=== PATIENT | female | born 1940 | race Caucasian/White ===

== ENCOUNTER 2021-09-29 10:08 | Outpatient (RCR) | payer MEDICARE, BC, SELFPAY | END 2021-09-30 23:59 | disposition home or self-care (01) | LOC: CCIC 10:08 | PROVIDERS: PCP Family Medicine; Visit Provider Internal Medicine Hematology & Oncology | DX: C50.912 Malignant neoplasm of unspecified site of left female breast (principal); Z17.0 Estrogen receptor positive status [ER+]; Z79.811 Long term (current) use of aromatase inhibitors; R23.2 Flushing; N95.2 Postmenopausal atrophic vaginitis; Z78.0 Asymptomatic menopausal state | CPT/HCPCS: 99204; 99212; 99214 ==

== ENCOUNTER 2021-10-14 13:46 | Outpatient (CLI) | payer MEDICARE, BC, SELFPAY ==
--- NOTE | 2021-10-14 14:00 | CRLHL7_ITS ---
For Patients: As a result of the Century Cures Act, medical imaging exams and procedure reports are released immediately into your electronic medical record. You may view this report before your referring provider. If you have questions, please contact your health care provider. DXA BONE MINERAL DENSITY STUDY Current height (in): 64. Weight (lb): 147. Menopause age: 55. Ethnicity: White. 1. Have you had a previous hip or vertebral fracture? No. 2. Have you had any fractures during your adult life which did not result from significant trauma (e.g., auto accident)? No. 3. Did either of your parents have a hip fracture? No. 4. Do you smoke? No. 5. Have you ever taken Glucocorticoids? No. 6. Do you have rheumatoid arthritis? No. 7. Do you have secondary osteoporosis? No. 8. Do you drink 3 or more alcoholic drinks per day? No. 9. Are you being treated for osteoporosis? No. 10. Have you ever taken any of the following medications: Actonel, Evista, Fosamax, Miacalcin, Reclast, Boniva, Forteo, HRT (i.e. estrogen/hormone therapy), Protelos, Prolia, Vitamin D, Calcium, other ??? please specify. ANSWER: Yes, vitamin D, calcium. 11. Do you have any of the following medical conditions: Anorexia or bulimia, asthma or emphysema, end stage renal disease, hyperparathyroidism, any seizure disorders, cancer, inflammatory bowel diseases, hysterectomy, other ??? please specify. ANSWER: Yes, Cancer. 12. What was your maximum height (inches)? 65.5. 13. Do you perform weight bearing exercise regularly? Yes. 14. Do you regularly consume dairy products? Yes. 15. Do you drink caffeinated beverages? Yes. 16. At what age did your period start? 12. 17. Are you premenopausal? No. 18. How many full term pregnancies have you had? 2. 19. Have you ever missed your period for more than 6 months in a row (not including or menopause)? No. TECHNIQUE: Bone mineral density study was performed using the [employer]. FINDINGS: The results of the study expressed as bone mineral density (BMD) are as follows: Lumbar spine L1 to L3: BMD: 1.007 g/cm2. T-score: -0.1. Z-score: 2.6. Neck Left: BMD: 0.860 g/cm2. T-score: 0.1. Z-score: 2.5. Right: BMD: 0.919 g/cm2. T-score: 0.6. Z-score: 3.0. Total Left: BMD: 1.001 g/cm2. T-score: 0.5. Z-score: 2.6. Right: BMD: 1.004 g/cm2. T-score: 0.5. Z-score: 2.7. IMPRESSION: Normal bone density. *Comparison exams done prior to 09/2019 were performed on different unit, [facility]. COMPARISON: Compared with scan of 2019, the bone mineral density has decreased by 3.0 percent at the spine and decreased by 6.4 percent at the hip. Compared with scan of 2018, the bone mineral density has increased by 2.2 percent at the spine and increased by 11.0 percent at the hip. Antwan Patel M.D. Diagnostic Radiologist [email or web address] THOM/Dictated by: Antwan Patel MD @ 10/14/2021 4:57:00 PM (Electronically Signed)
== END 2021-10-14 13:47 | disposition home or self-care (01) ==
LOC: RAD 13:47
PROVIDERS: PCP Family Medicine; Visit Provider Internal Medicine Hematology & Oncology
DX: N95.9 Unspecified menopausal and perimenopausal disorder (principal); C50.912 Malignant neoplasm of unspecified site of left female breast
CPT/HCPCS: 77080

== ENCOUNTER 2022-09-12 13:36 | Outpatient (CLI) | payer MEDICARE, BC, SELFPAY ==
--- NOTE | 2022-09-12 14:00 | CRLHL7_ITS ---
For Patients: As a result of the Century Cures Act, medical imaging exams and procedure reports are released immediately into your electronic medical record. You may view this report before your referring provider. If you have questions, please contact your health care provider. BILATERAL SCREENING MAMMOGRAM WITH COMPUTER-AIDED DETECTION AND TOMOSYNTHESIS TECHNIQUE: CC and MLO views were obtained. These mammographic images have been obtained using full-field digital technique. These mammographic images were interpreted with the benefit of computer-aided detection. Breast Tomosynthesis was used in this interpretation. COMPARISON FILM: 09/08/21, 09/07/20, 09/05/19. FINDINGS: There are scattered areas of fibroglandular density IMPRESSION: There is no radiographic evidence for malignancy. ASSESSMENT: BI-RADS Category 2: Benign RECOMMENDATION: Routine screening mammogram in 1 year. A lay language report of this examination will be provided to the patient. Antwan Patel M.D. Diagnostic Radiologist [email or web address] THOM/Dictated by: Antwan Patel MD @ 09/13/2022 12:57:00 PM (Electronically Signed)
== END 2022-09-12 13:37 | disposition home or self-care (01) ==
PROVIDERS: PCP Family Medicine; Visit Provider Internal Medicine Hematology & Oncology
DX: Z12.31 Encounter for screening mammogram for malignant neoplasm of breast (principal)
CPT/HCPCS: 77063; 77067

== ENCOUNTER 2022-09-22 13:03 | Outpatient (RCR) | payer MEDICARE, BC, SELFPAY | END 2023-03-21 23:59 | disposition home or self-care (01) | LOC: CCIC 13:03 | PROVIDERS: PCP Family Medicine; Visit Provider Internal Medicine Hematology & Oncology | DX: C50.912 Malignant neoplasm of unspecified site of left female breast (principal); Z17.0 Estrogen receptor positive status [ER+]; Z79.811 Long term (current) use of aromatase inhibitors; R23.2 Flushing; N95.2 Postmenopausal atrophic vaginitis | CPT/HCPCS: 99212; 99214 ==

== ENCOUNTER 2023-08-19 14:41 | Emergency (ER) | payer MEDICARE, BC, SELFPAY ==
[2023-08-19] VITALS (8 sets, daily range): BP systolic 152–166; BP diastolic 67–73; PULSE 80–86; RESP 16; TEMP 36.2; O2SAT 90–96; BMI 25.2
--- NOTE | 2023-08-19 14:52 | ED.GENADULT ---
HPI - General Adult General Chief complaint: Abdominal Pain <Antwan Martino MD - Last Filed: 08/25/23 14:27> Stated complaint: L flank pain <Antwan Martino MD - Last Filed: 08/25/23 14:27> Time Seen by Provider: 08/19/23 14:52 <Antwan Martino MD - Last Filed: 08/25/23 14:27> History of Present Illness HPI narrative: Pt reports sudden onset of L-sided abd/ flank pain and nausea around noon today. Also felt dizzy and had some heart palpations, this has resolved. Rates pain 11/10. 83-year-old woman presenting to the emergency department with complaint of sudden onset of left left flank ?just pain? . She had been vacuuming indicating right hand dominance but had switched to her left. Does not recall any particular strain and shortly after that suddenly hit by this pain. Not clearly reproducible. When she is discussing this is regularly placing her hand at her left hip and flank and left pelvic area. She has not had any dysuria. No hematuria. No fever. When this pain hit she felt a little lightheaded and maybe like she was going to pass out but this has resolved. Pain is also settled now. notes her to have been rather pale and diaphoretic with the pain. Unknown as to whether not has had nephrolithiasis but at least has not noted any ureteral stones prior. No family history noted of this. Incidentally supportive here today apparently is a ?stone former?. She does admit to having a rash in the area but this is rather longstanding and with further discussion she thinks it might be related to the band of her underwear. <Antwan Martino MD - Last Filed: 08/25/23 14:27> Related Data Home medications: Home Medications ?Medication ?Instructions ?Recorded ?Confirmed atorvastatin 20 mg tablet 20 mg PO .Bedtime 09/27/21 08/19/23 cholecalciferol (vitamin D3) 25 1,000 unit PO DIRECTED 09/27/21 08/19/23 mcg (1,000 unit) tablet clobetasol 0.05 % topical cream 1 topical .As Needed PRN 09/27/21 09/22/22 magnesium 250 mg tablet 250 mg PO QDAY 09/27/21 08/19/23 multivitamin (Multiple Vitamins 1 tab PO QDAY 09/27/21 08/19/23 tablet) omega-3 1,050 [id number] 1 cap PO QDAY 09/27/21 08/19/23 oil 1,200 mg capsule (Filion-3 (with docosapentaenoic acid)) trazodone 50 mg tablet 50 mg PO QDAY 09/27/21 08/19/23 venlafaxine 37.5 mg 37.5 mg PO QDAY 09/27/21 08/19/23 capsule,extended release 24 hr vitamin E mixed 400 unit capsule 400 unit PO DAILY 09/27/21 08/19/23 aspirin 81 mg tablet,delayed 81 mg PO QDAY 09/29/21 09/22/22 release glucosamine HCl 1,500 mg tablet 1,500 mg PO QDAY 09/29/21 09/22/22 calcium carbonate 600 mg PO BID 09/22/22 08/19/23 propranolol 10 mg tablet 10 mg PO 3XD 08/19/23 08/19/23 Previous Rx's ?Medication ?Instructions ?Recorded letrozole 2.5 mg tablet 2.5 mg PO DAILY #100 tabs 09/22/22 tamsulosin 0.4 mg capsule (Flomax) 0.4 mg PO DAILY PRN Ureteral spasm 08/19/23 #15 caps <Antwan Martino MD - Last Filed: 08/25/23 14:27> Allergies/adverse reactions: Allergies Allergy/AdvReac Type Severity Reaction Status Date / Time No Known Drug Allergies Allergy Verified 09/22/22 13:24 <Antwan Martino MD - Last Filed: 08/25/23 14:27> Review of Systems Status of ROS: Reports: 6 or more systems reviewed and unremarkable except as noted in History and below <Antwan Martino MD - Last Filed: 08/25/23 14:27> [facility] Medical History: Medical History Invasive ductal carcinoma of left breast, stage 2 ?C50.912 - Malignant neoplasm of unspecified site of left female breast (ICD-10) <Antwan Martino MD - Last Filed: 08/25/23 14:27> Surgical History: Surgical History History of lumpectomy of left breast ?Z98.890 - Other specified postprocedural states (ICD-10) <Antwan Martino MD - Last Filed: 08/25/23 14:27> Social History: Social History Smoking Status: Never smoker How often do you have a drink containing alcohol: never How often do you have six or more drinks on one occasion: Never AUDIT-C Alcohol total score: 0 Non-prescribed substance use: denies use <Antwan Martino MD - Last Filed: 08/25/23 14:27> Exam Narrative: Exam Narrative: Very pleasant. NAD. I enter the room to fine assisting her with her gown timing. She is standing. Breathing easily. Cranial nerves 2-12 intact. Heart in regular rate and rhythm. Skin is warm and dry/not diaphoretic. Extremities are well perfused and without edema. Bilaterally at the lower flank and moving a little midline is faintly erythematous speckling roughened in nature. One closed comedone present that looks to be erupting but again noninflamed. Not reproducibly tender here. She does not have SI joint area tenderness. Pain seems to be reproducible to the anterior iliac area musculature but not exacerbated with any manipulation of the thigh/hip. No inguinal area pain. Abdomen otherwise is soft and nontender without mass. Lungs are clear. She is breathing easily. Heart in regular rate and rhythm. <Antwan Martino MD - Last Filed: 08/25/23 14:27> Const: Vital Signs, click to edit/add: Vital Signs - 24 hr 08/19/23 14:45 08/19/23 16:17 08/19/23 16:18 Temperature 97.1 F L Pulse Rate 80 82 Pulse Rate [Pulse Oximeter] 83 Respiratory Rate 16 Blood Pressure 166/73 H Blood Pressure [Ri ght Upper Arm] 152/67 H Pulse Oximetry 96 95 95 Oxygen Delivery Me thod Room Air 08/19/23 16:30 08/19/23 16:31 Temperature Pulse Rate 82 Pulse Rate [Pulse Oximeter] Respiratory Rate Blood Pressure Blood Pressure [Ri ght Upper Arm] Pulse Oximetry 93 93 Oxygen Delivery Me thod <Antwan Martino MD - Last Filed: 08/25/23 14:27> Vital Signs, click to edit/add: Vital Signs - 24 hr 08/19/23 14:45 08/19/23 16:17 08/19/23 16:18 Temperature 97.1 F L Pulse Rate 80 82 Pulse Rate [Pulse Oximeter] 83 Respiratory Rate 16 Blood Pressure 166/73 H Blood Pressure [Ri ght Upper Arm] 152/67 H Pulse Oximetry 96 95 95 Oxygen Delivery Me thod Room Air 08/19/23 16:30 08/19/23 16:31 Temperature Pulse Rate 82 Pulse Rate [Pulse Oximeter] Respiratory Rate Blood Pressure Blood Pressure [Ri ght Upper Arm] Pulse Oximetry 93 93 Oxygen Delivery Me thod <Shannon Villa MD - Last Filed: 08/21/23 18:41> Documenting provider has reviewed patient's vital signs: yes <Antwan Martino MD - Last Filed: 08/25/23 14:27> Course Vital Signs Vital signs: Initial Vital Signs Temperature 97.1 F L 08/19/23 14:45 Temperature Source Temporal Artery Scan 08/19/23 14:45 Pulse Rate 83 08/19/23 14:45 Respiratory Rate 16 08/19/23 14:45 Blood Pressure 152/67 H 08/19/23 14:45 Blood Pressure Mean 95 08/19/23 14:45 Blood Pressure Position Supine 08/19/23 14:45 Pulse Oximetry 96 08/19/23 14:45 Oxygen Delivery Method Room Air 08/19/23 14:45 Vital Signs Temperature 97.1 F L 08/19/23 14:45 Pulse Rate 83 08/19/23 14:45 Respiratory Rate 16 08/19/23 14:45 Blood Pressure 152/67 H 08/19/23 14:45 Pulse Oximetry 96 08/19/23 14:45 Oxygen Delivery Method Room Air 08/19/23 14:45 Temperature 97.1 F L 08/19/23 14:45 Pulse Rate 85 08/19/23 17:15 Respiratory Rate 16 08/19/23 14:45 Blood Pressure 166/73 H 08/19/23 16:17 Pulse Oximetry 93 08/19/23 17:15 Oxygen Delivery Method Room Air 08/19/23 14:45 <Antwan Martino MD - Last Filed: 08/25/23 14:27> Initial Vital Signs Temperature 97.1 F L 08/19/23 14:45 Temperature Source Temporal Artery Scan 08/19/23 14:45 Pulse Rate 83 08/19/23 14:45 Respiratory Rate 16 08/19/23 14:45 Blood Pressure 152/67 H 08/19/23 14:45 Blood Pressure Mean 95 08/19/23 14:45 Blood Pressure Position Supine 08/19/23 14:45 Pulse Oximetry 96 08/19/23 14:45 Oxygen Delivery Method Room Air 08/19/23 14:45 Vital Signs Temperature 97.1 F L 08/19/23 14:45 Pulse Rate 83 08/19/23 14:45 Respiratory Rate 16 08/19/23 14:45 Blood Pressure 152/67 H 08/19/23 14:45 Pulse Oximetry 96 08/19/23 14:45 Oxygen Delivery Method Room Air 08/19/23 14:45 Temperature 97.1 F L 08/19/23 14:45 Pulse Rate 85 08/19/23 17:15 Respiratory Rate 16 08/19/23 14:45 Blood Pressure 166/73 H 08/19/23 16:17 Pulse Oximetry 93 08/19/23 17:15 Oxygen Delivery Method Room Air 08/19/23 14:45 <Shannon Villa MD - Last Filed: 08/21/23 18:41> Medications Administered Medications: Discontinued Medications Generic Name Dose Route Start Last Admin Trade Name Freq PRN Reason Stop Dose Admin Sodium Chloride 1,000 mls @ 1,000 mls/hr 08/19/23 15:37 08/19/23 17:24 0.9 % Sodium Chloride 1000 Ml IV 08/19/23 16:36 Infused .Q1H ONE Infusion Ketorolac Tromethamine 15 mg 08/19/23 15:37 08/19/23 16:17 Ketorolac 15 Mg/Ml Inj IVP 08/19/23 15:38 15 mg ONCE ONE Administration Morphine Sulfate 4 mg 08/19/23 16:26 08/19/23 16:30 Morphine 4 Mg/Ml Inj IVP 08/19/23 16:27 4 mg ONCE ONE Administration Ondansetron HCl 4 mg 08/19/23 16:26 08/19/23 16:30 Ondansetron 2 Mg/Ml Inj IVP 08/19/23 16:27 4 mg ONCE ONE Administration Tamsulosin HCl 0.4 mg 08/19/23 17:13 08/19/23 17:24 Tamsulosin Hcl 0.4 Mg Capsule PO 08/19/23 17:14 0.4 mg ONCE ONE Administration <Antwan Martino MD - Last Filed: 08/25/23 14:27> Discontinued Medications Generic Name Dose Route Start Last Admin Trade Name Bere PRN Reason Stop Dose Admin Sodium Chloride 1,000 mls @ 1,000 mls/hr 08/19/23 15:37 08/19/23 17:24 0.9 % Sodium Chloride 1000 Ml IV 08/19/23 16:36 Infused .Q1H ONE Infusion Ketorolac Tromethamine 15 mg 08/19/23 15:37 08/19/23 16:17 Ketorolac 15 Mg/Ml Inj IVP 08/19/23 15:38 15 mg ONCE ONE Administration Morphine Sulfate 4 mg 08/19/23 16:26 08/19/23 16:30 Morphine 4 Mg/Ml Inj IVP 08/19/23 16:27 4 mg ONCE ONE Administration Ondansetron HCl 4 mg 08/19/23 16:26 08/19/23 16:30 Ondansetron 2 Mg/Ml Inj IVP 08/19/23 16:27 4 mg ONCE ONE Administration Tamsulosin HCl 0.4 mg 08/19/23 17:13 08/19/23 17:24 Tamsulosin Hcl 0.4 Mg Capsule PO 08/19/23 17:14 0.4 mg ONCE ONE Administration <Shannon Villa MD - Last Filed: 08/21/23 18:41> Medical Decision Making MDM Narrative Medical decision making narrative: Curiously reproducible. The bilateral nature suggests against shingles. 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 Does not have res produce a bowel nature so much that I would suspect that it is a musculoskeletal problem. I would like to see the urine. Abrupt nature suggest not an infectious process but I think probably ureteral stone. Pending this result would move forward with CT imaging other laboratory assessment. Urinalysis does come back with notable blood and without much in the way of white cells to suggest infectious process. White cells that are there I would think would be more inflammatory. Would move toward verification as this first-time occurrence with CT imaging of abdomen and pelvis. No recent images available to refer to. I reviewed CT images. Appears to be a small ureteral stone in the left distal ureter with hydronephrosis. Rather dilated renal pelvis/collecting system Radiology over-read now available as below Study:?CT-Abdomen/Pelvis W/ 72CC ISOVUE 370-08/19/2023 4:14:59 PM Ordering Physician:ALIDA Final Report: INDICATION: Left flank pain; hematuria. COMPARISON: None. TECHNIQUE: CT abdomen and pelvis with intravenous contrast; coronal and sagittal reformats. FINDINGS: A 2 mm calcification identified in the left pelvis (slice 104 series 2 )most likely in the left distal ureter causing moderate left-sided hydronephrosis and hydroureter. Significant dilatation of the left intrarenal collecting system. No renal calculi on the right. 3 mm nonobstructing calculus lower pole calyx left kidney. Liver, spleen and pancreas are unremarkable. Tiny gallstone. No adrenal pathology. Mild retroperitoneal lymphadenopathy. Diverticulosis sigmoid colon without any CT evidence of diverticulitis and abscess. No nodules through the lung bases. Small fat containing umbilical hernia. Impression: 1. A tiny 2 mm stone identified in the left distal ureter causing hydronephrosis and hydroureter on the left. 2. A 2 mm nonobstructing calculus lower pole calyx left kidney. 3. Tiny gallstone Discussed these findings with Ms. Galarza <Antwan Martino MD - Last Filed: 08/25/23 14:27> Curiously reproducible. The bilateral nature suggests against shingles. 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 Does not have res produce a bowel nature so much that I would suspect that it is a musculoskeletal problem. I would like to see the urine. Abrupt nature suggest not an infectious process but I think probably ureteral stone. Pending this result would move forward with CT imaging other laboratory assessment. Urinalysis does come back with notable blood and without much in the way of white cells to suggest infectious process. White cells that are there I would think would be more inflammatory. Would move toward verification as this first-time occurrence with CT imaging of abdomen and pelvis. No recent images available to refer to. I reviewed CT images. Appears to be a small ureteral stone in the left distal ureter with hydronephrosis. Rather dilated renal pelvis/collecting system Radiology over-read now available as below Study:?CT-Abdomen/Pelvis W/ 72CC ISOVUE 370-08/19/2023 4:14:59 PM Ordering Physician:ALIDA Final Report: INDICATION: Left flank pain; hematuria. COMPARISON: None. TECHNIQUE: CT abdomen and pelvis with intravenous contrast; coronal and sagittal reformats. FINDINGS: A 2 mm calcification identified in the left pelvis (slice 104 series 2 )most likely in the left distal ureter causing moderate left-sided hydronephrosis and hydroureter. Significant dilatation of the left intrarenal collecting system. No renal calculi on the right. 3 mm nonobstructing calculus lower pole calyx left kidney. Liver, spleen and pancreas are unremarkable. Tiny gallstone. No adrenal pathology. Mild retroperitoneal lymphadenopathy. Diverticulosis sigmoid colon without any CT evidence of diverticulitis and abscess. No nodules through the lung bases. Small fat containing umbilical hernia. Impression: 1. A tiny 2 mm stone identified in the left distal ureter causing hydronephrosis and hydroureter on the left. 2. A 2 mm nonobstructing calculus lower pole calyx left kidney. 3. Tiny gallstone Discussed these findings with Ms. Galarza 08/21/2023: patient contacted as her urine culture grew out g negative rods 3 different organisms but only in [id number] colony-forming units. patient notes that the pain she felt while in the ER on August 18 has completely dissipated. She thought she may have noticed a small spot of blood but they hematuria at that she had has also resolved. She denies fever or chills or any painful urination. Given the fact that the stone has most likely passed I do not think we should treat the gram-negative kim that is showing up in her urine at only 40-50 K CFU. I have told the patient however if she develops fever, vomiting, confusion, dysuria or pain that she needs to be seen for evaluation. Ironically she had been on antibiotics for a sinus infection, her last dose on MondayAugust 17. Shannon Villa MD <Shannon Villa MD - Last Filed: 08/21/23 18:41> Lab Data Lab results reviewed: Yes I reviewed the patient's lab results <Antwan Martino MD - Last Filed: 08/25/23 14:27> Labs: Lab Results 08/19/23 08/19/23 Range/Units 14:55 15:50 WBC 9.88 (4.50-11.00) K/uL RBC 3.78 L (4.00-5.20) m/uL Hgb 13.0 (12.0-16.0) gm/dL Hct 38.5 (33.0-51.0) % MCV 102 H (80-100) fL MCH 34 (26-34) pg MCHC 34 (32-36) gm/dL RDW Coeff of Fernandez 12.8 (11.5-15.5) % Plt Count 212 (140-440) K/uL Neut % (Auto) 80.3 H (42.0-72.0) % Lymph % (Auto) 12.7 L (20-44) % [place] % (Auto) 5.5 (0.0-11.0) % Eos % (Auto) 1.2 (0.0-7.0) % Baso % (Auto) 0.1 (0.0-3.0) % Neut # (Auto) 7.90 H (1.7-7.0) K/uL Lymph # (Auto) 1.30 (0.90-2.90) K/uL [place] # (Auto) 0.50 (0.00-0.90) K/UL Eos # (Auto) 0.12 (0.00-0.50) K/uL Baso # (Auto) 0.01 (0.00-0.30) K/uL Abs Immat Gran (auto) 0.02 (0.00-0.30) K/uL Imm/Tot Granulo (auto) 0.2 % Sodium 138 (135-149) mmol/L Potassium 3.7 (3.6-5.1) mmol/L Chloride 104 (96-114) mmol/L Carbon Dioxide 31 (20-32) mmol/L Anion Gap 3 L (7-15) mEq/L BUN 19 (7-30) mg/dL Creatinine 0.8 (0.5-1.5) mg/dL Estimated Creat Clear 36.81 Estimated GFR 73 ml/min Glucose 116 H (60-115) mg/dL Calcium 10.0 (8.4-10.6) mg/dL C-Reactive Protein < 0.5 L (0.5-1.0) mg/dL Urine Color Yellow (Yellow) Urine Appearance Cloudy A (Clear) Urine pH 7.0 (5.0-8.5) Ur Specific [place] 1.020 (1.000-1.030) Urine Protein Negative (Negative) Urine Glucose (UA) Negative (Negative) Urine Ketones Negative (Negative) Urine Blood 3+ A (Negative) Urine Nitrite Negative (Negative) Urine Bilirubin Negative (Negative) Urine Urobilinogen 0.2 (0.2-1.0) Ur Leukocyte Esterase Trace A (Negative) Urine RBC 50-100 A (0-2) Urine WBC 0-2 (0-5) Ur Squamous Epith Cells Few (None-Few) Amorphous Sediment Many A (None) Urine Bacteria Few A (None) POC Creatinine 1.0 (0.6-1.3) mg/dl <Antwan Martino MD - Last Filed: 08/25/23 14:27> Lab Results 08/19/23 08/19/23 Range/Units 14:55 15:50 WBC 9.88 (4.50-11.00) K/uL RBC 3.78 L (4.00-5.20) m/uL Hgb 13.0 (12.0-16.0) gm/dL Hct 38.5 (33.0-51.0) % MCV 102 H (80-100) fL MCH 34 (26-34) pg MCHC 34 (32-36) gm/dL RDW Coeff of Fernandez 12.8 (11.5-15.5) % Plt Count 212 (140-440) K/uL Neut % (Auto) 80.3 H (42.0-72.0) % Lymph % (Auto) 12.7 L (20-44) % [place] % (Auto) 5.5 (0.0-11.0) % Eos % (Auto) 1.2 (0.0-7.0) % Baso % (Auto) 0.1 (0.0-3.0) % Neut # (Auto) 7.90 H (1.7-7.0) K/uL Lymph # (Auto) 1.30 (0.90-2.90) K/uL [place] # (Auto) 0.50 (0.00-0.90) K/UL Eos # (Auto) 0.12 (0.00-0.50) K/uL Baso # (Auto) 0.01 (0.00-0.30) K/uL Abs Immat Gran (auto) 0.02 (0.00-0.30) K/uL Imm/Tot Granulo (auto) 0.2 % Sodium 138 (135-149) mmol/L Potassium 3.7 (3.6-5.1) mmol/L Chloride 104 (96-114) mmol/L Carbon Dioxide 31 (20-32) mmol/L Anion Gap 3 L (7-15) mEq/L BUN 19 (7-30) mg/dL Creatinine 0.8 (0.5-1.5) mg/dL Estimated Creat Clear 36.81 Estimated GFR 73 ml/min Glucose 116 H (60-115) mg/dL Calcium 10.0 (8.4-10.6) mg/dL C-Reactive Protein < 0.5 L (0.5-1.0) mg/dL Urine Color Yellow (Yellow) Urine Appearance Cloudy A (Clear) Urine pH 7.0 (5.0-8.5) Ur Specific [place] 1.020 (1.000-1.030) Urine Protein Negative (Negative) Urine Glucose (UA) Negative (Negative) Urine Ketones Negative (Negative) Urine Blood 3+ A (Negative) Urine Nitrite Negative (Negative) Urine Bilirubin Negative (Negative) Urine Urobilinogen 0.2 (0.2-1.0) Ur Leukocyte Esterase Trace A (Negative) Urine RBC 50-100 A (0-2) Urine WBC 0-2 (0-5) Ur Squamous Epith Cells Few (None-Few) Amorphous Sediment Many A (None) Urine Bacteria Few A (None) POC Creatinine 1.0 (0.6-1.3) mg/dl <Shannon Villa MD - Last Filed: 08/21/23 18:41> Discharge Plan Discharge Clinical Impression: Hematuria, Ureteral colic, Nephrolithiasis, Left ureteral calculus <Antwan Martino MD - Last Filed: 08/25/23 14:27> Patient Disposition: Home w/ Parent or Adult <Antwan Martino MD - Last Filed: 08/25/23 14:27> Condition: Improved <Antwan Martino MD - Last Filed: 08/25/23 14:27> Additional Instructions: Continue to stay well-hydrated. Consider straining your urine over this next week. If possible, analysis of the stone might be helpful. Temporarily can take up to 800 mg of ibuprofen per dose. Otherwise can also take Percocet as prescribed from [facility]. Can take up to 1000 mg of acetaminophen per dose and remember that each tablet of Percocet contains 325 mg of acetaminophen. Also from [facility] Zofran for nausea. Sending in Flomax for cramping pain. Follow-up if pain persisting in 4-5 days. Be seen also for uncontrolled pain, intractable vomiting, associated fever. <Antwan Martino MD - Last Filed: 08/25/23 14:27> Prescriptions: New tamsulosin [Flomax] 0.4 mg capsule 0.4 mg PO DAILY PRN (Reason: Ureteral spasm) Qty: 15 0RF No Action atorvastatin 20 mg tablet 20 mg PO .Bedtime cholecalciferol (vitamin D3) 25 mcg (1,000 unit) tablet 1,000 unit PO DIRECTED vitamin E mixed 400 unit capsule 400 unit PO DAILY clobetasol 0.05 % cream 1 topical .As Needed PRN Rx Instructions: APPLY SPARINGLY TO AFFECTED AREA magnesium 250 mg tablet 250 mg PO QDAY multivitamin [Multiple Vitamins] Tablet 1 tab PO QDAY Filion-3 (with dpa) 1,050-1,200 mg capsule 1 cap PO QDAY venlafaxine 37.5 mg capsule,extended release 24hr 37.5 mg PO QDAY trazodone 50 mg tablet 50 mg PO QDAY glucosamine HCl 1,500 mg tablet 1,500 mg PO QDAY aspirin 81 mg tablet,delayed release (DR/EC) 81 mg PO QDAY calcium carbonate 600 mg calcium (1,500 mg) tablet 600 mg PO BID letrozole 2.5 mg tablet 2.5 mg PO DAILY Qty: 100 3RF propranolol 10 mg tablet 10 mg PO 3XD <Antwan Martino MD - Last Filed: 08/25/23 14:27> Follow Up/Referrals: Serge Potter MD [Primary Care Provider] - <Antwan Martino MD - Last Filed: 08/25/23 14:27> Stand Alone Forms: [email or web address] Info Instructions <Antwan Martino MD - Last Filed: 08/25/23 14:27>
[2023-08-19 15:02] LABS: Appearance Urine Cloudy (Clear); Bilirubin Urine Negative (Negative); Blood Urine 3+ (Negative); Color Urine Yellow (Yellow); Glucose Urine Negative (Negative); Ketones Urine Negative (Negative); Leukocyte Esterase Urine Trace (Negative); Nitrite Urine Negative (Negative); Protein Urine Negative (Negative); Urobilinogen Urine 0.2 (0.2-1.0)
--- OUTSIDE RECORDS SUMMARY | 2023-08-19 15:26 | XMS_ITS | Clinical Summary ---
Author Name Unknown Organization [facility] Address [address], [place] [address] Care Team Providers Care Director Of Pharmacy Name Role Phone Herson Fournier MD Primary Care Provider + [phone] Source Comments You are receiving this document as you are listed as the primary care provider,follow-up provider, or the patient has been referred to you for consultation.This is in compliance with the Medicare and[facility] EHR Incentive Program,which states Providers who transition their patient to another setting of careor provider of care or refers their patient to another provider of care shouldprovide summary care record for each transition of care or referral. [facility] Allergies No known active allergies Medications Medication Sig Dispensed Refills Start Date End Date Status atorvastatin (LIPITOR) 20 MG tablet Take 1 Tablet (20 mg) by mouth daily. 08/02/2023 Active letrozole (FEMARA) 2.5 MG tablet Take 1 Tablet (2.5 mg) by mouth daily. 08/02/2023 Active propranolol (INDERAL) 10 MG tablet Take 1 Tablet (10 mg) by mouth three times a day. 07/30/2023 Active traZODone (DESYREL) 50 MG tablet Take 2 Tablets (100 mg) by mouth at bedtime as needed. 05/13/2023 Active venlafaxine (EFFEXORXR) 37.5 MG 24 hour release capsule Take 1 Capsule (37.5 mg) by mouth daily. 08/02/2023 Active predniSONE (DELTASONE) 20 MG tablet Take 2 Tablets (40 mg) by mouth daily for 5 days. 10 Tablet 08/07/2023 08/12/2023 Active Problems No known active problems Encounters Date Type Department Care Team Description 08/07/2023 3:20 PM CDT Office Visit [id number] [address] [place] [address] Agustin Pascual, [employer], [employer] Nasal congestion; Post-nasal drainage; Cough, unspecified type from Last 3 Months Social History Tobacco Use Types Packs/Day Years Used Date Smoking Tobacco: Never Smokeless Tobacco: Never Tobacco Cessation:Counseling Given: Not Answered Sex and Gender Information Value Date Recorded Sex Assigned at Not on file Gender Identity Not on file Sexual Orientation Not on file Last Filed Vital Signs Vital Sign Reading Time Taken Comments Blood Pressure 160/63 08/07/2023 3:16 PM CDT Pulse 86 08/07/2023 3:16 PM CDT Temperature 36.7 ??C (98.1 ??F) 08/07/2023 3:16 PM CD T Respiratory Rate 16 08/07/2023 3:16 PM CDT Oxygen Saturation 97% 08/07/2023 3:16 PM CDT Inhaled Oxygen Concentration - - Weight - - Height - - Body Mass Index - - Plan of Treatment Health Maintenance Due Date Last Done Comments Adult Preventive Visit 02/22/1958 Dexa 02/22/2005 DTaP/Tdap/Td (2 - Tdap) 12/30/2020 12/30/2010, 03/07 COVID-19 Vaccine ( season) 2022 12/24/2021, 01/02/2021 Zoster/Shingles Completed 11/09/2018, 08/03, 12/10/2007 Pneumococcal 65+ Yrs Completed 09/23/2022, 11/19/2014, 03/07/2005 Influenza Completed 01/02/2023, 12/03, 12/24/2020, Additional history exists HepA Aged Out No longer eligi ble based on patient's age to complete this topic HepB Aged Out No longer eligi ble based on patient's age to complete this topic Hib Aged Out No longer eligi ble based on patient's age to complete this topic IPV (Polio) Aged Out No longer eligi ble based on patient's age to complete this topic MCV4 Aged Out No longer eligi ble based on patient's age to complete this topic Care Teams Director Of Pharmacy Relationship Specialty Start Date End Date Herson Fournier MD [address] [place], [place] [id number] PCP - General 07/05/10
--- OUTSIDE RECORDS SUMMARY | 2023-08-19 15:26 | XMS_ITS | Encounter Summary ---
Author Name Unknown Organization [facility] Address [address], [place] [address] Care Team Providers Care Cash Grain Grower Name Role Phone Herson Fournier MD Primary Care Provider Reason for Visit * Reason Comments Cold Symptoms Encounter Details Date Type Department Care Team (Late st Contact Info) Description 08/07/2023 3:20 PM CDT Office Visit [place] [facility] [address] [place] [address] Agustin Pascual, LILA, CNC MILL AND LATHE OPERATOR [address] [place], [place] [id number] Nasal congestion; Post-nasal drainage; Cough, unspecified type Social History Tobacco Use Types Packs/Day Years Used Date Smoking Tobacco: Never Smokeless Tobacco: Never Tobacco Cessation:Counseling Given: Not Answered Sex and Gender Information Value Date Recorded Sex Assigned at Not on file Gender Identity Not on file Sexual Orientation Not on file documented as of this encounter Last Filed Vital Signs Vital Sign Reading Time Taken Comments Blood Pressure 160/63 08/07/2023 3:16 PM CDT Pulse 86 08/07/2023 3:16 PM CDT Temperature 36.7 ??C (98.1 ??F) 08/07/2023 3:16 PM CD T Respiratory Rate 16 08/07/2023 3:16 PM CDT Oxygen Saturation 97% 08/07/2023 3:16 PM CDT Inhaled Oxygen Concentration - - Weight - - Height - - Body Mass Index - - documented in this encounter Patient Instructions * Patient Instructions* Agustin Pascual, LILA, CNC MILL AND LATHE OPERATOR - 08/07/2023 3:20 PM CDT *You may use qhsh-uis-ugmvgmo cough and cold medicine such as DayQuil and NyQuil or their generic equivalents. *For nasal congestion you may add and pseudoephedrine (short acting). *Often even if you do not have known allergies there may be a allergy component and try an oghp-icc-jdzuyub antihistamine such as Zyrtec, Prerna, Xyzal, or Claritin can help. *You may also try Flonase (fluticasone). *You may also add in ibuprofen for any body aches. *Cough drops and throat lozenges as well as sprays can help if you have sore throat. *Nasal saline rinse. Vicks Vaporub documented in this encounter Progress Notes * Agustin Pascual APRN, CNP - 08/07/2023 3:20 PM CDT Nubia Galarza is a 83 y.o.female presents to the Urgent Care for Cold Symptoms Symptoms began: 2.5 week(s) ago. Fever: absent. Other associated symptoms: sinus pain and pressure, headache, cough and ears full Patient requests an excuse letter for work/school: No Subjective: Nubia Galarza is a 83 y.o. female presents for evaluation of about 2 weeks of cough. She has not had associated fevers. No shortness of breath difficulty breathing. Cough is worse at night. Notes she has some postnasal drainage and sinus pressure. Did have a little bit of headache earlier but none now. Does feel some pressure in her ears as well. No other concerns or complaints. Has been using some izvk-aed-uodezfq medications with little relief. Review of Systems: Review of systems otherwise negative unless noted in the HPI Medical History: There is no problem list on file for this patient. Social History: Social History Tobacco Use Smoking status: Never Smokeless tobacco: Never Substance Use Topics Alcohol use: Not on file Adverse Drug Reactions: Patient has no known allergies. Medications: atorvastatin, letrozole, predniSONE, propranolol, traZODone, and venlafaxine Physical exam: Patient Vitals for the past 24 hrs: BP Temp Temp src Pulse Resp SpO2 08/07/23 1516 (!) 160/63 36.7 ??C (98.1 ??F) Oral 86 16 97 % General: Alert, No obvious discomfort, well kept HENT: Normal voice, Postnasal drainage, right TM appears to be within normal limits. Left TM with mild retraction, Nasal congestion and No sinus tenderness Eyes: The pupils are equal, round, and reactive to light, Conjunctiva normal, No scleral icterus Neck: Normal range of motion, No menigismus CV: Normal Pulses Resp: Non-labored, No cough Normal work of breathing, Breath sounds clear throughout, No wheezing, and No crackles MS: Normal muscular tone, moves all extremities Skin: No rash or acute skin lesions noted Neuro: Speech is normal and fluent Psych: Awake. Alert. Normal affect. Appropriate interactions. Good eye contact Labs: LABS: No results found for any visits on 08/07/23. IMAGING: No results found. ASSESSMENT: MDM: The patient presents with symptoms and exam findings most consistent with uncomplicated viral upperrespiratory tract infection without evidence of respiratory compromise, clinical toxicity, or clinical dehydration. No findings to suggest severe sinusitis. There is no evidence at this time of any serious cardiopulmonary process. The patient has clear lungs with normal oxygen saturations, making pneumonia unlikely; therefore no chest x-ray was obtained. Symptomatic and supportive care were discussed. A prescription for prednisone was provided. No antibiotics are indicated at this time. Follow-up with primary doctor was recommended should symptoms persist, and return should symptoms worsen. The patient should also return for signs of respiratory distress, dehydration, high fevers, severe facial pain, facial swelling, or for any other questions or concerns. Understanding of the discharge instructions was confirmed. Diagnosis and Associated Orders ICD-10-CM 1. Nasal congestion R09.81 2. Post-nasal drainage R09.82 3. Cough, unspecified type R05.9 PLAN: Patient Instructions *You may use exfc-tlz-ffhutqw cough and cold medicine such as DayQuil and NyQuil or their generic equivalents. *For nasal congestion you may add and pseudoephedrine (short acting). *Often even if you do not have known allergies there may be a allergy component and try an iavw-hix-rigbmtp antihistamine such as Zyrtec, Prerna, Xyzal, or Claritin can help. *You may also try Flonase (fluticasone). *You may also add in ibuprofen for any body aches. *Cough drops and throat lozenges as well as sprays can help if you have sore throat. *Nasal saline rinse. Vicks Vaporub Orders Placed This Encounter Medications atorvastatin (LIPITOR) 20 MG tablet Sig: Take 1 Tablet (20 mg) by mouth daily. letrozole (FEMARA) 2.5 MG tablet Sig: Take 1 Tablet (2.5 mg) by mouth daily. propranolol (INDERAL) 10 MG tablet Sig: Take 1 Tablet (10 mg) by mouth three times a day. traZODone (DESYREL) 50 MG tablet Sig: Take 2 Tablets (100 mg) by mouth at bedtime as needed. venlafaxine (EFFEXORXR) 37.5 MG 24 hour release capsule Sig: Take 1 Capsule (37.5 mg) by mouth daily. predniSONE (DELTASONE) 20 MG tablet Sig: Take 2 Tablets (40 mg) by mouth daily for 5 days. Dispense: 10 Tablet Refill: 0 We discussed contagiousness. You may use vzgq-jrs-xkphfzr cough and cold medicine such as DayQuil and NyQuil or their generic equivalents. For nasal congestion you may add and pseudoephedrine (short acting). Often even if you do not have known allergies there may be a allergy component and try an ov de-ypy-zdukhqg antihistamine such as Zyrtec, Prerna, Xyzal, or Claritin can help. You may also tryFlonase (fluticasone). You may also add in ibuprofen for any body aches. Cough drops and throat lozenges as well as sprays can help if you have sore throat. Nasal saline rinse. Vicks Vaporub The patient was discharged ambulatory and in stable condition. If strep, COVID, or influenza testing was initiated. You will receive a call with any results that would require antibiotics. Otherwise follow-up on my chart. documented in this encounter Nursing Notes * Sahnna Lopez RN - 08/07/2023 3:20 PM CDT Nubia Galarza is a 83 y.o.female presents to the Urgent Care for Cold Symptoms Symptoms began: 2.5 week(s) ago. Fever: absent. Other associated symptoms: sinus pain and pressure, headache, cough and ears full Patient requests an excuse letter for work/school: No documented in this encounter Plan of Treatment Not on file documented as of this encounter Visit Diagnoses Diagnosis Nasal congestion Other diseases of nasal cavity and sinuses Post-nasal drainage Unspecified sinusitis (chronic) Cough, unspecified type documented in this encounter Care Teams Cash Grain Grower Relationship Specialty Start Date End Date Herson Fournier MD [address] [place] [address] PCP - General 07/05/10 documented as of this encounter
--- OUTSIDE RECORDS SUMMARY | 2023-08-19 15:26 | XMS_ITS | Clinical Summary ---
Author Name Unknown Organization [facility] Address [place], [place] [address] Care Team Providers Care Ui Software Developer Name Role Phone Juan Oliveira MD Unavailable Unavail able Jose D Florence Unavailable [phone] Jimmie Hartman Unavailable Unavailable Serge Potter MD Primary Care Provider Allergies No known active allergies Medications Medication Sig Dispensed Refills Start Date End Date Status ASPIRIN 81 MG TAB take one pill every day 0 08/21/2007 Active MULTIVITAMIN TAB 0 01/18/2008 Active CALTRATE 600 600 MG (1,500 MG) TAB one to two a day 0 01/18/2008 Active VITAMIN D 1,000 UNIT CAP 0 01/18/2008 Active fish oil-omega-3 fatty acids (FISH OIL) 360-1,200 mg Cap Take 1 capsule by mouth once daily. 0 01/19/2010 Active magnesium 250 mg TabIndications:Routin e general medical examination at a health care facility Take 1 tablet by mouth once daily. 0 01/24/2011 Active timolol (ISTALOL) 0.5 % ophthalmic solution Place 1 Drop into both eyes once daily. 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 0 09/04/2015 Active glucosamine HCl 1,500 mg tab Take 1 tablet by mouth once daily. 0 09/05/2016 Active vitamin e 400 unit capsule Take 1 capsule by mouth once daily. 0 09/05/2016 Active propranoloL (INDERAL) 10 mg tabletIndications:Jonas mor Take 1 Tablet (10 mg) by mouth three times daily. 90 Tablet 12 09/23/2022 Active atorvastatin (LIPITOR) 20 mg tabletIndications:Hyp erlipidemia, unspecified hyperlipidemia type TAKE 1 TABLET DAILY WITH THE EVENING MEAL 90 Tablet 3 09/23/2022 Active traZODone (DESYREL) 50 mg tabletIndications:Epi sode of recurrent major depressive disorder, unspecified depression episode severity (HC) Take 2 Tablets (100 mg) by mouth at bedtime. 180 Tablet 3 09/23/2022 Active venlafaxine (EFFEXOR XR) 37.5 mg Extended-Release capsuleIndications:Ep isode of recurrent major depressive disorder, unspecified depression episode severity (HC) Take 1 Capsule (37.5 mg) by mouth once daily with a meal. 90 Capsule 3 09/23/2022 Active amoxicillin (AMOXIL) 875 mg tabletIndications:Acu te non-recurrent maxillary sinusitis Take 1 Tablet (875 mg) by mouth two times daily for 10 days. 20 Tablet 08/09/2023 08/19/2023 Active Active Problems Problem Noted Date Diagnosed Date Tremor 09/23/2022 Insomnia, idiopathic 09/23/2022 Prediabetes 09/22/2021 Adenomatous colon polyp 12/20/2017 Overview: Colonoscopy 12/2017 polyp, repeat in 5 years Hypervitaminosis D 09/05/2016 Mixed hearing loss, bilateral 08/21/2014 Osteoarthrosis, unspecified whether generalized or localized, unspecified site 01/16/2007 Other and unspecified hyperlipidemia 01/16/2007 nummular eczema 01/16/2007 Major depressive disorder, recurrent episode, un specified 11/30/2006 Generalized anxiety disorder 11/30/2006 Resolved Problems Problem Noted Date Diagnosed Date Resolved Date Breast cancer, left (HCC). On letrozole. 09/17/2013 08/09/2023 Overview: MICROSCOPIC HISTOLOGIC TYPE Infiltrating lobular carcinoma PETTY GRADE II of III Mitotic rate: 1/3 + Tubular differentiation: 3/3 + Nuclear pleomorphism: 2/3 = Petty score 6 of 9 ER positive, GA negative. 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 09/05/2013 shelter current use of anticoagulant 11/19/2012 12/14/2012 Stomach pain 01/18/2008 01/19/2009 Mixed hearing loss, unilateral 11/12/2007 08/21/2014 Encounters Date Type Department Care Team Description 08/09/2023 11:20 AM CDT Office Visit [facility] [address] [place] [address] Serge Potter MD Sinus Problem (Runny nose, congestion); Cough (Productive cough) 08/08/2023 11:00 AM CDT Office Visit [facility] [address] [place] [address] Arvind Burkett AuD Hearing Aid 08/08/2023 Travel from Last 3 Months Immunizations Name Administration Dates Next Due Amb Influenza, Inact (High-d ose) (Flu Clinic Only) 01/13/2016,01/06/2014 COVID-19 vaccine (Pfizer-Bio NTech 30mcg/0.3mL) 12YO+ BIVALENT PF, MDV 12/24/2021 COVID-19 vaccine (Pfizer-Bio NTech 30mcg/0.3mL) PF, MDV 05/21/2020,04/27/2020 Influenza, High-dose Inactivated 018,01/13/2016,01/16/2015,2013 Influenza, IIV3 (Age >=3 years) 12/28/19 13,12/27/2011,12/30/2010,2009,12/18/2008,01/18/2008,01/16/2007,1 ,02/03/2003 Influenza, Inactivated AIIV4 (Age 65+ Years) Preserv Free 01/02/2023,12/24/2021,12/24/2020,2019 Influenza, Inactivated IIV3 (Age 65+ Years) Preserv Free 01/15/2019,01/05/2017 Pneumococcal Conj 20-valent (Prevnar 20) 09/23/2022 Pneumococcal Poly,23-Valent (Pneumovax) 03/07/2005 Pneumococcal conj 13-Valent (Prevnar 13) 11/19/2014 Td (Age >=7 Years) 03/07/2005 Tdap 12/30/2010 Zoster (Shingrix-RZV, recombinant) 11/09/2018, Zoster (Zostavax-ZVL, live) 12/10/2007 Family History Medical History Relation Name Comments Cancer Father pancreatic Heart Disease Father Tremor Maternal Grandmother Arthritis Mother Heart Disease Mother Hypertension Mother Tremor Mother Cancer-ovarian Other pat first cou sin 60's yrs old Cancer-breast Paternal Aunt 1 post derik Cancer-breast Paternal Aunt 2 post derik Cancer-breast Paternal Aunt 3 60's yrs ol d Anesthesia Malignant Hyperthermia No Family History Anesthesia Problem No Family History Cancer-colon No Family History Relation Name Status Comments Father Maternal Grandmother Mother Other Paternal Aunt 1 Paternal Aunt 2 Paternal Aunt 3 Social History Tobacco Use Types Packs/Day Years Used Date Smoking Tobacco: Never Smokeless Tobacco: Never Tobacco Cessation:Counseling Given: No Alcohol Use Standard Drinks/Week Comments Not Currently 0 (1 standard drink = 0.6 oz pur e alcohol) occasional PHQ-2 Answer Date Recorded PHQ-2 TOTAL SCORE 0 09/23/2022 Social Connections Answer Date Recorded Frequency of Communication with Friends and Fami ly 0 08/09/2023 Financial Resource Strain Answer Date R ecorded Difficulty of Paying Living Expenses 3 08/09/2023 Difficulty of Paying Living Expenses Not on file 08/09/2023 Food Insecurity Answer Date Recorded Worried About Running Out of Food in the Last Ye ar 1 08/09/2023 Transportation Needs Answer Date Record ed Lack of Transportation (Medical) 1 08/09/2023 Housing Stability Answer Date Recorded Unable to Pay for Housing in the Last Year 1 08/09/2023 Sex and Gender Information Value Date Recorded Sex Assigned at Not on file Gender Identity Not on file Sexual Orientation Not on file Obstetrics History Para Term AB IAB SAB Ectopic Multiple Livin g Live Births 2 2 2 Date Outcome GA Total Labor Labor/2nd/3rd Weight Sex Delivery Anes PTL Andressa A1 A5 Name Cl in Para Para Last Filed Vital Signs Vital Sign Reading Time Taken Comments Blood Pressure 148/86 08/09/2023 11:50 AM CDT Pulse 78 08/09/2023 11:50 AM CDT Temperature 36.8 ??C (98.3 ??F) 11/11/2020 12:50 PM C DT Respiratory Rate 20 11/11/2020 12:50 PM CDT Oxygen Saturation 96% 08/09/2023 11:50 AM CDT Inhaled Oxygen Concentration - - Weight 67.4 kg (148 lb 9.6 oz) 09/23/2022 2:06 P M CDT Height 162.6 cm (5' 4) 09/23/2022 2:06 PM CDT Body Mass Index 25.51 09/23/2022 2:06 PM CDT Plan of Treatment Upcoming Encounters Date Type Department Care Team (Late st Contact Info) Description 09/25/2023 8:50 AM CDT Office Visit [facility] [address] [place] [address] Serge Potter MD [address] [place] [address] Health Maintenance Due Date Last Done Comments Tetanus booster 12/30/2020 12/30/2010, 03/07/2005 COVID-19 vaccine series ( season) 2022 12/24/2021, 01/02/2021, 05/21/2020, Additional history exists BMI (ht and wt on same day) for age 18+ 09/24/2023 09/23/2022, 09/22/2021, 11/11/2020, Additional history exists Depression screening for age 12+ 09/24/2023 09/23/2022, 09/23/2022, 09/22/2021, Additional history exists Medicare Wellness for age 65+ 09/24/2023, 09/22/2021, 09/14/2020, Additional history exists Influenza for age 65+ 12/03/2023 01/02/2023 , 12/24/2021, 12/24/2020, Additional history exists Tdap Completed 12/30/2010 Zoster (shingles) series for age 50+ Completed 11/09/2018, 08/30/2018, 12/10/2007 DEXA/DXA scan for age 65+ Completed 2021, 10/03/2019, 08/17/2017, Additional history exists Pneumococcal series for age 65+ Completed 09/23/2022, 11/19/2014, 03/07/2005 Procedures Procedure Name Priority Date/Time Associated Diagnosis Comments SCAN-BONE DENSITOMETRY DEXA 10/14/2021 12:00 AM CDT from Last 3 Months or Most Recently Relevant to Health Maintenance Results * SCAN-BONE DENSITOMETRY DEXA (10/14/2021 12:00 AM CDT) Anatomical Region Laterality Modality Other Scanner OTHER from Last 3 Months or Most Recently Relevant to Health Maintenance Advance Directives * Full Code (Latest Code Status on File) Date Activated Date Inactivated Comments 09/04/2013 3:19 PM 09/06/2013 10:21 AM Care Teams Ui Software Developer Relationship Specialty Start Date End Date Serge Potter MD [address] [place] [address] PCP - General Family Practice 08/24/17 Juan Oliveira MD Surgery - Orthopedics 08/14/12 Jose D Florence [facility] [address] [place] [address] Security Expert 08/14/12 Jimmie Hartman Jayne Santos [facility] [address] [place] [address] Hematology and Oncology 09/02/14
[2023-08-19 15:27] LABS: Amorphous Sediment Urine Many; Bacteria Urine Few; RBC Urine 50-100 (0-2); Squamous Epithelial Cell Urine Few (None-Few); WBC Urine 0-2 (0-5)
--- NOTE | 2023-08-19 15:40 | CT_ITS ---
Patient: ERICA CORTEZ Facility:?[facility] Patient ID:?[id number] Site Patient ID:?[id number]. Site :?[id number] Study:?CT-Abdomen/Pelvis W/ 72CC ISOVUE 370-08/19/2023 4:14:59 PM Ordering Physician:ALIDA Final Report: INDICATION: Left flank pain; hematuria. COMPARISON: None. TECHNIQUE: CT abdomen and pelvis with intravenous contrast; coronal and sagittal reformats. FINDINGS: A 2 mm calcification identified in the left pelvis (slice 104 series 2 )most likely in the left distal ureter causing moderate left-sided hydronephrosis and hydroureter. Significant dilatation of the left intrarenal collecting system. No renal calculi on the right. 3 mm nonobstructing calculus lower pole calyx left kidney. Liver, spleen and pancreas are unremarkable. Tiny gallstone. No adrenal pathology. Mild retroperitoneal lymphadenopathy. Diverticulosis sigmoid colon without any CT evidence of diverticulitis and abscess. No nodules through the lung bases. Small fat containing umbilical hernia. Impression: 1. A tiny 2 mm stone identified in the left distal ureter causing hydronephrosis and hydroureter on the left. 2. A 2 mm nonobstructing calculus lower pole calyx left kidney. 3. Tiny gallstone Please note that all CT scans at this facility use dose modulation, iterative reconstruction, and/or weight-based dosing when appropriate to reduce radiation dose to as low as reasonably achievable. Dictated by Gregg Fuentes MD @ 08/19/2023 4:26:29 PM Signed by:?Gregg Fuentes MD @08/19/2023 4:26:29 PM (Electronic Signature)
[2023-08-19 15:59] LABS: Basophils Absolute Auto 0.01 K/uL (0.00-0.30); Basophils Percent Auto 0.1 % (0.0-3.0); Eosinophils Absolute Auto 0.12 K/uL (0.00-0.50); Eosinophils Percent Auto 1.2 % (0.0-7.0); Hematocrit 38.5 % (33.0-51.0); Immature Granulocytes Abs Auto 0.02 K/uL (0.00-0.30); Immature Granulocytes Pct Auto 0.2 %; Lymphocytes Percent Auto 12.7 % (20-44); Mean Corpuscular HGB Conc 34 gm/dL (32-36); Mean Corpuscular Hemoglobin 34 pg (26-34); Mean Corpuscular Volume 102 fL (80-100); Monocytes Percent Auto 5.5 % (0.0-11.0); Neutrophils Percent Auto 80.3 % (42.0-72.0); Platelet Count* 212 K/uL (140-440); RDW Coefficient of Variation % 12.8 % (11.5-15.5); Red Blood Count 3.78 m/uL (4.00-5.20); White Blood Count* 9.88 K/uL (4.50-11.00)
[2023-08-19 16:02] LABS: Slide Review Reflex No
[2023-08-19 16:11] LABS: Chloride* 104 mmol/L (96-114); Potassium* 3.7 mmol/L (3.6-5.1); Sodium* 138 mmol/L (135-149)
[2023-08-19 16:14] LABS: Creatinine* 0.8 mg/dL (0.5-1.5); Est. Creatinine Clearance* 36.81; Estimated Glomerular Filt Rate 73 ml/min
[2023-08-19 16:15] LABS: Anion Gap 3 mEq/L (7-15); Blood Urea Nitrogen* 19 mg/dL (7-30); Carbon Dioxide* 31 mmol/L (20-32); Glucose* 116 mg/dL (60-115)
[2023-08-19] MEDS: 0.9 % SODIUM CHLORIDE 1000 ml 1,000 ML IV (16:17)
[2023-08-19] MEDS: KETOROLAC 15 MG/ML inj IVP (16:17)
[2023-08-19 16:27] LABS: C Reactive Protein* < 0.5 mg/dL (0.5-1.0)
[2023-08-19] MEDS: MORPHINE 4 MG/ML INJ IVP (16:30)
[2023-08-19] MEDS: ONDANSETRON 2 MG/ML inj 4 MG IVP (16:30)
[2023-08-19] MEDS: TAMSULOSIN HCL 0.4 MG CAPSULE PO (17:24)
== END 2023-08-19 17:30 | disposition home or self-care (01) ==
PROVIDERS: Emergency Provider Family Medicine; PCP Family Medicine
DX: R31.9 Hematuria, unspecified (principal); N20.1 Calculus of ureter; N20.0 Calculus of kidney
CPT/HCPCS: 36415; 74177; 80048; 81001; 82565; 85025; 86140; 87086; 87186; 94761; 96361; 96374; 96375; 99284; 99285; A9270; J1885; J2270; J2405; J7030; Q9967

== ENCOUNTER 2023-09-14 13:37 | Outpatient (CLI) | payer MEDICARE, BC, SELFPAY ==
--- OUTSIDE RECORDS SUMMARY | 2023-09-14 13:41 | XMS_ITS | Encounter Summary ---
Author Organization [facility] Address [address], [place] [address] Care Team Providers Care Surgery Scheduling Coordinator Name Role Phone Herson Fournier MD Primary Care Provider [phone] Reason for Visit * Reason Comments Cold Symptoms Encounter Details Date Type Department Care Team (Late st Contact Info) Description 08/07/2023 3:20 PM CDT Office Visit [place] [address] [facility] [address] [place] [address] Agustin Pascual, LILA, CASE HARDENER [address] [place], [place] [id number] Nasal congestion; Post-nasal drainage; Cough, unspecified type [...] Instructions * Patient Instructions* Agustin Pascual, LILA, CASE HARDENER - 08/07/2023 3:20 PM CDT *You may use pcdw-wxy-femibir cough and cold medicine such as DayQuil and NyQuil or their generic equivalents. *For nasal congestion you may add and pseudoephedrine (short acting). *Often even if you do not have known allergies there may be a allergy component and try an ykkr-qic-twecauy antihistamine such as Zyrtec, Prerna, Xyzal, or [...] concerns or complaints. Has been using some etny-afw-napehus medications with little relief. Review of Systems: [...] R05.9 PLAN: Patient Instructions *You may use gqam-epk-baltwye cough and cold medicine such as DayQuil and NyQuil or their generic equivalents. *For nasal congestion you may add and pseudoephedrine (short acting). *Often even if you do not have known allergies there may be a allergy component and try an lslc-pxa-jahzzek antihistamine such as Zyrtec, Prerna, Xyzal, or [...] 0 We discussed contagiousness. You may use evtz-ynq-nmsupwk cough and cold medicine such as DayQuil and NyQuil or their generic equivalents. For nasal congestion you may add and pseudoephedrine (short acting). Often even if you do not have known allergies there may be a allergy component and try an ov ua-dii-mfaxdqs antihistamine such as Zyrtec, Prerna, Xyzal, or [...] documented in this encounter Nursing Notes * Shanna Lopez RN - 08/07/2023 3:20 PM CDT [...] type documented in this encounter Care Teams Surgery Scheduling Coordinator Relationship Specialty Start Date End Date Herson Fournier MD [address] [place] [address] PCP - General 07/05/10 documented as of this encounter
--- OUTSIDE RECORDS SUMMARY | 2023-09-14 13:41 | XMS_ITS | Clinical Summary ---
Author Organization [facility] Address [address], [place] [address] Care Team Providers Care Special Service Officer Name Role Phone Herson Fournier MD Primary Care Provider [phone] Source Comments You are receiving this document as you are listed as the primary care provider,follow-up provider, or the patient has been referred to you for consultation.This is in compliance with the Medicare and[facility] EHR Incentive Program,which states Providers who transition their patient to another setting of careor provider of care or refers their patient to another provider of care shouldprovide summary care record for each transition of care or referral. [facility] Allergies No known active allergies Medications Medication [...] (37.5 mg) by mouth daily. 08/02/2023 Active Active Problems No known active problems Encounters Date Type Department Care Team Description 08/07/2023 3:20 PM CDT Office Visit [place] [address] [facility] [address] [place] [address] Agustin Pascual, JANITORIAL CLEANER, STEAM TABLE WORKER Nasal congestion; Post-nasal drainage; Cough, unspecified type [...] Health Maintenance Due Date Last Done Comments Medicare Annual Wellness Visit 1940 Dexa 02/22/2005 DTaP/Tdap/Td (2 - Tdap) 12/30/2020 [...] age to complete this topic Care Teams Special Service Officer Relationship Specialty Start Date End Date Herson Fournier MD [address] [place] [address] PCP - General 07/05/10
--- OUTSIDE RECORDS SUMMARY | 2023-09-14 13:42 | XMS_ITS | Clinical Summary ---
Author Organization [facility] Address [place] [address] 07 Care Team Providers Care Profiling Machine Setup Operator Name Role Phone Juan Oliveira MD Unavailable Unavail able Ludivina Jose D M Unavailable [phone] Jimmie Hartman Unavailable Unavailable Serge Potter MD [...] a meal. 90 Capsule 3 09/23/2022 Active benzonatate (TESSALON) 100 mg capsuleIndications:Co ugh, unspecified type Take 1 Capsule (100 mg) by mouth 3 times daily if needed for Cough. 21 Capsule 08/29/2023 Active amoxicillin (AMOXIL) 875 mg tabletIndications:Acu te non-recurrent maxillary sinusitis Take 1 Tablet (875 mg) by mouth two times daily for 10 days. 20 Tablet 08/09/2023 08/19/2023 Active Problems Problem Noted Date Diagnosed Date [...] differentiation: 3/3 + Nuclear pleomorphism: 2/3 = Winona score 6 of 9 ER positive, NM negative. 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 Potter August 08 amoxicillin for sinus infection); Nose Problem (Started 4 weeks ago); Fatigue (Started about 2 weeks ago); ER Follow up (Had a kidney stone left a urine sample at the er was told to get another urine sample done cause she could have a uti ) 08/29/2023 Travel 08/19/2023 Orders Only [facility] Scanner 1 scan: (1-Ord) [facility], ABD PELVIS W/CON, 08/19/2023 08/09/2023 11:20 AM CDT Office Visit [facility] [address] [place] [address] Serge Potter MD Sinus Problem (Runny nose, congestion); Cough (Productive cough) 08/08/2023 11:00 AM CDT Office Visit [facility] [address] [place] [address] Arvind Burkett, AuD Hearing Aid 08/08/2023 Travel from Last 3 Months Immunizations Name Administration Dates Next Due Amb Influenza, Inact (High-d ose) (Flu Clinic Only) 01/13/2016,01/06/2014 COVID-19 vaccine ([employer] 30mcg/0.3mL) 12YO+ BIVALENT PF, MDV 12/24/2021 [...] Outcome GA Total Labor Labor/2nd/3rd Weight Sex Type Anes PTL Andressa A1 A5 Name Clin Para Para Last Filed Vital Signs Vital Sign Reading Time Taken Comments Blood Pressure 132/77 08/29/2023 3:15 PM CDT Pulse 78 08/29/2023 3:15 PM CDT Temperature 36.6 ??C (97.9 ??F) 08/29/2023 3:15 PM CD T Respiratory Rate 20 11/11/2020 12:50 PM CDT Oxygen Saturation 98% 08/29/2023 3:15 PM CDT Inhaled Oxygen Concentration - - Weight 68.3 kg (150 lb 8 oz) 08/29/2023 3:15 PM CDT Height 162.6 cm (5' 4) 09/23/2022 2:06 PM CDT Body Mass Index 25.83 09/23/2022 2:06 PM CDT Plan of Treatment Upcoming Encounters Date Type Department Care Team (Late st Contact Info) Description 09/28/2023 8:30 AM CDT Office Visit [facility] [address] [place] [address] Serge Potter MD [address] [place] [address] 11/02/2023 1:00 PM CDT Office Visit [facility] [address] [place] [address] Arvind Burkett AuD [address] [place] [address] Health Maintenance Due Date Last Done Comments Tetanus booster 12/30/2020 12/30/2010, 03/07/2005 COVID-19 vaccine series (2022-24 season) 2022 12/24/2021, 01/02/2021, 05/21/2020, Additional history [...] Procedure Name Priority Date/Time Associated Diagnosis Comments XR CHEST 2 VIEWS PA AND LATERAL Routine 08/29/2023 3:51 PM CDT Cough, unspecified type SCAN-CT INTERPRETATION 12:00 AM CDT SCAN-BONE DENSITOMETRY DEXA 10/14/2021 12:00 AM CDT from Last 3 Months or Most Recently Relevant to Health Maintenance Results * XR CHEST 2 VIEWS PA AND LATERAL (08/29/2023 3:51 PM CDT) Anatomical Region Laterality Modality CHEST, THORAX, Lung, HEART Compu rosario Radiography 08/30/2023 9:47 PM CDT Impressions 08/30/2023 9:47 PM CDT No acute findings. Dictated by Antwan Patel MD @ 08/30/2023 9:47:08 PM (Electronically Signed) Narrative 08/30/2023 9:47 PM CDT For Patients: ??As a result of the Cures Act, medical imaging exams and procedure reports are released immediately into your electronic medical record. ??You may view this report before your referring provider. ??If you have questions, please contact your health care provider. INDICATION: Cough TECHNIQUE: Chest 2 views COMPARISON: None FINDINGS: No infiltrate. No edema. No effusion or pneumothorax. Incidental densities overlie the right hemithorax. No fracture. Procedure Note Antwan Patel MD - 08/30/2023 For Patients: As a result of the Cures Act, medical imagingexams and procedure reports are released immediately into your electronicmedical record. You may view this report before your referring provider.If you have questions, please contact your health care provider. INDICATION: Cough TECHNIQUE: Chest 2 views COMPARISON: None FINDINGS: No infiltrate. No edema. No effusion or pneumothorax. Incidental densitiesoverlie the right hemithorax. No fracture. IMPRESSION: No acute findings. Dictated by Antwan Patel MD @ 08/30/2023 9:47:08 PM (Electronically Signed) Levon Medina MD GENERAL IMAGING * SCAN-CT INTERPRETATION (08/19/2023 12:00 AM CDT) Anatomical Region Laterality Modality Other Scanner OTHER * SCAN-BONE DENSITOMETRY DEXA (10/14/2021 12:00 AM CDT) Anatomical Region Laterality Modality Other Scanner OTHER from Last 3 Months or Most Recently Relevant to Health Maintenance Advance Directives * Full Code (Latest Code Status on File) Date Activated Date Inactivated Comments 09/04/2013 3:19 PM 09/06/2013 10:21 AM Care Teams Profiling Machine Setup Operator Relationship Specialty Start Date End Date Serge Potter MD [address] [place] [address] PCP - General Family Practice 08/24/17 Juan Oliveira MD Surgery - Orthopedics 08/14/12 Jose D [place] [facility] [address] [place] [address] Production Grader 08/14/12 Jimmie Hartman [facility] [address] [place] [address] Hematology and Oncology 09/02/14
--- NOTE | 2023-09-14 14:00 | CRLHL7_ITS ---
For Patients: As a result of the Century Cures Act, medical imaging exams and procedure reports are released immediately into your electronic medical record. You may view this report before your referring provider. If you have questions, please contact your health care provider. BILATERAL DIGITAL SCREENING MAMMOGRAM WITH COMPUTER-AIDED DETECTION AND TOMOSYNTHESIS CLINICAL HISTORY: Routine screening exam. COMPARISON: 09/12/2022, 09/08/2021, 09/07/2020. TECHNIQUE: Digital mammogram in CC and MLO projections including computer-aided detection (CAD). Tomosynthesis was used in this interpretation. BREAST COMPOSITION: There are areas of scattered fibroglandular density. FINDINGS: RIGHT Breast: No suspicious findings. LEFT Breast: Focal asymmetric density lateral LEFT breast 4 cm from the nipple. IMPRESSION: LEFT breast asymmetry/mass. RECOMMENDATIONS: Additional mammographic views of the LEFT breast including 3D spot compression CC/MLO. LEFT breast ultrasound may also be required. BI-RADS Category 0: Incomplete: Need Additional Imaging Evaluation and/or Prior Mammograms for Comparison [facility] will contact the patient for follow-up. A lay language report of this examination will be provided to the patient. Dictated by Antwan Patel MD @ 09/18/2023 11:29:17 AM jj/Dictated by: Antwan Patel MD @ 09/18/2023 11:29:00 AM (Electronically Signed)
== END 2023-09-14 13:38 | disposition home or self-care (01) ==
PROVIDERS: PCP Family Medicine; Referring Provider Internal Medicine Hematology & Oncology; Visit Provider Family Medicine
DX: Z12.31 Encounter for screening mammogram for malignant neoplasm of breast (principal); N63.20 Unspecified lump in the left breast, unspecified quadrant
CPT/HCPCS: 77063; 77067

== ENCOUNTER 2023-09-22 08:25 | Outpatient (CLI) | payer MEDICARE, BC, SELFPAY ==
--- OUTSIDE RECORDS SUMMARY | 2023-09-22 08:27 | XMS_ITS | Encounter Summary ---
Author Organization [facility] Address [address], [place] [address] Care Team Providers Care Medical Aides Teacher Name Role Phone Herson Fournier MD Primary Care Provider [phone] Reason for Visit * Reason Comments Cold Symptoms Encounter Details Date Type Department Care Team (Late st Contact Info) Description 08/07/2023 3:20 PM CDT Office Visit [facility] [address] [place] [address] Agustin Pascual, LILA, RESEARCH PHARMACIST [address] [place], [place] [id number] Nasal congestion; Post-nasal drainage; Cough, unspecified type [...] Instructions * Patient Instructions* Agustin Pascual, LILA, RESEARCH PHARMACIST - 08/07/2023 3:20 PM CDT *You may use uilt-tyy-basjbfg cough and cold medicine such as DayQuil and NyQuil or their generic equivalents. *For nasal congestion you may add and pseudoephedrine (short acting). *Often even if you do not have known allergies there may be a allergy component and try an pbga-dmz-kjllnha antihistamine such as Zyrtec, Prerna, Xyzal, or [...] concerns or complaints. Has been using some vzjl-brb-cwmylte medications with little relief. Review of Systems: [...] R05.9 PLAN: Patient Instructions *You may use jgmz-puq-jwnmfdb cough and cold medicine such as DayQuil and NyQuil or their generic equivalents. *For nasal congestion you may add and pseudoephedrine (short acting). *Often even if you do not have known allergies there may be a allergy component and try an kzom-msl-bnjokur antihistamine such as Zyrtec, Prerna, Xyzal, or [...] 0 We discussed contagiousness. You may use ncgp-fss-typyzjy cough and cold medicine such as DayQuil and NyQuil or their generic equivalents. For nasal congestion you may add and pseudoephedrine (short acting). Often even if you do not have known allergies there may be a allergy component and try an ov gp-cpm-tyswakt antihistamine such as Zyrtec, Prerna, Xyzal, or [...] type documented in this encounter Care Teams Medical Aides Teacher Relationship Specialty Start Date End Date Herson Fournier MD [address] [place] [address] PCP - General 07/05/10 documented as of this encounter
--- OUTSIDE RECORDS SUMMARY | 2023-09-22 08:27 | XMS_ITS | Clinical Summary ---
Author Organization [facility] Address [address] [address] Care Team Providers Care Ed Special Education Teacher Name Role Phone Herson Fournier MD Primary Care Provider [phone] Source Comments You are receiving this document as you are listed as the primary care provider,follow-up provider, or the patient has been referred to you for consultation.This is in compliance with the Medicare and[facility] Hospital[facility] EHR Incentive Program,which states Providers who transition their patient to another setting of careor provider of care or refers their patient to another provider of care shouldprovide summary care record for each transition of care or referral. [facility] Allergies No known active allergies Medications Medication [...] Description 08/07/2023 3:20 PM CDT Office Visit [facility] [address] [place] [address] Agustin Pascual, OFFICE ENGINEER, CONSTRUCTION SAFETY MANAGER Nasal congestion; Post-nasal drainage; Cough, unspecified type [...] age to complete this topic Care Teams Ed Special Education Teacher Relationship Specialty Start Date End Date Herson Fournier MD [address] [place] [address] PCP - General 07/05/10
--- OUTSIDE RECORDS SUMMARY | 2023-09-22 08:27 | XMS_ITS | Clinical Summary ---
Author Organization [facility] Address [place] [address] 07 Care Team Providers Care Digital Associate Name Role Phone Juan Oliveira MD Unavailable Unavail able Jose D [place] Unavailable [phone] Jimmie Hartman Unavailable Unavailable Serge Potter MD [...] daily. 0 01/19/2010 Active magnesium 250 mg TabIndications:Routine general medical examination at a health care facility Take 1 tablet by mouth once daily. 0 01/24/2011 Active timolol (ISTALOL) 0.5 % ophthalmic solution Place 1 Drop into both eyes once daily. 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 0 09/04/2015 Active glucosamine HCl 1,500 mg tab Take 1 tablet by mouth once daily. 0 09/05/2016 Active vitamin e 400 unit capsule Take 1 capsule by mouth once daily. 0 09/05/2016 Active propranoloL (INDERAL) 10 mg tabletIndications:Trem or Take 1 Tablet (10 mg) by mouth three times daily. 90 Tablet 12 09/23/2022 Active atorvastatin (LIPITOR) 20 mg tabletIndications:Hype rlipidemia, unspecified hyperlipidemia type TAKE 1 TABLET DAILY WITH THE EVENING MEAL 90 Tablet 3 09/23/2022 Active traZODone (DESYREL) 50 mg tabletIndications:Epis ode of recurrent major depressive disorder, unspecified depression episode severity (HC) Take 2 Tablets (100 mg) by mouth at bedtime. 180 Tablet 3 09/23/2022 Active venlafaxine (EFFEXOR XR) 37.5 mg Extended-Release capsuleIndications:Epi sode of recurrent major depressive disorder, unspecified depression episode severity (HC) Take 1 Capsule (37.5 mg) by mouth once daily with a meal. 90 Capsule 3 09/23/2022 Active benzonatate (TESSALON) 100 mg capsuleIndications:Cou gh, unspecified type Take 1 Capsule (100 mg) by mouth 3 times daily if needed for Cough. 21 Capsule 08/29/2023 Active Active Problems Problem Noted Date Diagnosed [...] Petty score 6 of 9 ER positive, AR negative. 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 09/05/2013 intermediate current use of anticoagulant 11/19/2012 12/14/2012 Stomach pain 01/18/2008 01/19/2009 Mixed hearing loss, unilateral 11/12/2007 08/21/2014 Encounters Date Type Department Care Team Description 09/14/2023 Orders Only [facility] Scanner 1 scan: (1-Ord) [facility], SCREENING MAMMO BI, 09/14/2023 08/29/2023 3:45 PM CDT Ancillary Procedure [address] [address] 08/29/2023 3:15 PM CDT Office Visit [facility] [address] [place] [address] Levon Medina MD Cough (Started 4 weeks [...] uti ) 08/29/2023 Travel 08/19/2023 Orders Only [facility] Scanner 1 scan: (1-Ord) [facility], ABD PELVIS W/CON, 08/19/2023 08/09/2023 11:20 AM CDT Office Visit [facility] [address] [place] [address] Serge Potter MD Sinus Problem (Runny nose, congestion); Cough (Productive cough) 08/08/2023 11:00 AM CDT Office Visit [facility] [address] [place] [address] Arvind Burkett, AuD Hearing Aid 08/08/2023 Travel [...] Description 09/28/2023 8:30 AM CDT Office Visit [facility] [address] [place] [address] Serge Potter MD [address] [place] [address] 11/02/2023 1:00 PM CDT Office Visit [facility] [address] [place] [address] Arvind Burkett AuD [address] [place] [phone] Health Maintenance Due Date Last Done Comments Tetanus booster 12/30/2020 12/30/2010, 03/07/2005 COVID-19 vaccine series (2022- season) 2022 12/24/2021, 01/02/2021, 05/21/2020, Additional history [...] Procedure Name Priority Date/Time Associated Diagnosis Comments SCAN-MAMMOGRAPHY REPORT 09/14/2023 12:00 AM CDT XR CHEST 2 VIEWS PA AND LATERAL Routine 08/29/2023 3:51 PM CDT Cough, unspecified type SCAN-CT INTERPRETATION 12:00 AM CDT SCAN-BONE DENSITOMETRY DEXA 10/14/2021 12:00 AM CDT from Last 3 Months or Most Recently Relevant to Health Maintenance Results * SCAN-MAMMOGRAPHY REPORT (09/14/2023 12:00 AM CDT) Anatomical Region Laterality Modality Other Scanner OTHER * XR CHEST 2 VIEWS PA AND [...] 3:19 PM 09/06/2013 10:21 AM Care Teams Digital Associate Relationship Specialty Start Date End Date Serge Potter MD [address] [place] [address] PCP - General Family Practice 08/24/17 Juan Oliveira MD Surgery - Orthopedics 08/14/12 Jose D [place] [employer] [facility] [address] [place] [address] Shipping Services Sales Representative 08/14/12 Jimmie Hartman [employer] [facility] [address] [place] [address] Hematology and Oncology 09/02/14
--- NOTE | 2023-09-22 08:45 | CRLHL7_ITS ---
For Patients: As a result of the Cures Act, medical imaging exams and procedure reports are released immediately into your electronic medical record. You may view this report before your referring provider. If you have questions, please contact your health care provider. LEFT DIAGNOSTIC DIGITAL MAMMOGRAM WITH COMPUTER-AIDED DETECTION AND TOMOSYNTHESIS LEFT BREAST ULTRASOUND CLINICAL HISTORY: LEFT breast mass/asymmetry. COMPARISON: 09/14/2023 TECHNIQUE: Digital LEFT mammogram in two projections with computer-aided detection. Tomosynthesis was used in this interpretation. Real-time ultrasound imaging of LEFT breast with imaging documentation. BREAST COMPOSITION: There are scattered areas of fibroglandular density. FINDINGS: 3D spot compression CC/MLO LEFT breast mammogram images submitted. Post-therapy changes are present in the medial LEFT breast. Persistent nodular density within lateral LEFT breast. Targeted LEFT breast ultrasound performed at 3 o`clock, 5 cm from the nipple. In this location, there is a complex heterogeneous solid nodule measuring 11 x 8 x 8 mm. IMPRESSION: Indeterminate, complex heterogeneous nodule in the LEFT breast at 3 o`clock 5 cm from the nipple, measuring 11 x 8 x 8 mm. RECOMMENDATION: Ultrasound-guided core needle biopsy. BI-RADS Category 4: Suspicious. Results and recommendations discussed with the patient. A lay language report of this examination will be provided to the patient. Dictated by Antwan Patel MD @ 09/22/2023 9:53:41 AM CRL:elvis RD/Dictated by: Antwan Patel MD @ 09/22/2023 9:53:00 AM (Electronically Signed)
--- NOTE | 2023-09-22 09:15 | CRLHL7_ITS ---
For Patients: As a result of the Century Cures Act, medical imaging exams and procedure reports are released immediately into your electronic medical record. You may view this report before your referring provider. If you have questions, please contact your health care provider. PLEASE SEE LEFT DIAGNOSTIC MAMMOGRAM OF SAME DAY FOR COMBINED REPORT. CRL:elvis RD/Dictated by: Antwan Patel MD @ 09/22/2023 9:53:00 AM (Electronically Signed)
== END 2023-09-22 08:26 | disposition home or self-care (01) ==
LOC: MAMMO 08:25
PROVIDERS: PCP Family Medicine; Visit Provider Internal Medicine Hematology & Oncology
DX: N63.20 Unspecified lump in the left breast, unspecified quadrant (principal); R92.8 Other abnormal and inconclusive findings on diagnostic imaging of breast
CPT/HCPCS: 76642; 77065; G0279

== ENCOUNTER 2023-10-03 10:49 | Outpatient (CLI) | payer MEDICARE, BC, SELFPAY ==
--- OUTSIDE RECORDS SUMMARY | 2023-10-03 10:51 | XMS_ITS | Encounter Summary ---
Author Organization [facility] Address [address], [place] [address] Care Team Providers Care Refuse Laborer Name Role Phone Herson Fournier MD Primary Care Provider [phone] Reason for Visit * Reason Comments Cold Symptoms Encounter Details Date Type Department Care Team (Late st Contact Info) Description 08/07/2023 3:20 PM CDT Office Visit [facility] [address] [facility] [address] [place] [address] Agustin Pascual, LILA, EDUCATIONAL FUNDRAISING DIRECTOR [address] [place], [place] [phone] Nasal congestion; Post-nasal drainage; Cough, unspecified type [...] Instructions * Patient Instructions* Agustin Pascual, LILA, EDUCATIONAL FUNDRAISING DIRECTOR - 08/07/2023 3:20 PM CDT *You may use rmut-zxn-hbapgwh cough and cold medicine such as DayQuil and NyQuil or their generic equivalents. *For nasal congestion you may add and pseudoephedrine (short acting). *Often even if you do not have known allergies there may be a allergy component and try an ucvf-xmv-zvdhpnj antihistamine such as Zyrtec, Prerna, Xyzal, or [...] concerns or complaints. Has been using some seoz-epk-jxnfqeg medications with little relief. Review of Systems: [...] R05.9 PLAN: Patient Instructions *You may use ckqf-xxn-mqhkijy cough and cold medicine such as DayQuil and NyQuil or their generic equivalents. *For nasal congestion you may add and pseudoephedrine (short acting). *Often even if you do not have known allergies there may be a allergy component and try an pwav-qfi-pbuijgc antihistamine such as Zyrtec, Prerna, Xyzal, or [...] 0 We discussed contagiousness. You may use ygpp-vxe-fndtnln cough and cold medicine such as DayQuil and NyQuil or their generic equivalents. For nasal congestion you may add and pseudoephedrine (short acting). Often even if you do not have known allergies there may be a allergy component and try an ov cj-fet-bwgfxvz antihistamine such as Zyrtec, Prerna, Xyzal, or [...] type documented in this encounter Care Teams Refuse Laborer Relationship Specialty Start Date End Date Herson Fournier MD [address] [place] [address] PCP - General 07/05/10 documented as of this encounter
--- OUTSIDE RECORDS SUMMARY | 2023-10-03 10:51 | XMS_ITS | Clinical Summary ---
Author Organization [facility] Address [place], [place] [address] Care Team Providers Care Technical Education Teacher Name Role Phone Juan Oliveira MD Unavailable Unavail able Jose D Florence Unavailable [phone] Jimmie Hartman Unavailable Unavailable Serge Potter MD [...] daily. 0 01/19/2010 Active magnesium 250 mg TabIndications:Alicia conde general medical examination at a health care facility Take 1 tablet by mouth once daily. 0 01/24/2011 Active timolol (ISTALOL) 0.5 % ophthalmic solution Place 1 Drop into both eyes once daily. 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 0 09/04/2015 Active glucosamine HCl 1,500 mg tab Take 1 tablet by mouth once daily. 0 09/05/2016 Active vitamin e 400 unit capsule Take 1 capsule by mouth once daily. 0 09/05/2016 Active benzonatate (TESSALON) 100 mg capsuleIndications:C ough, unspecified type Take 1 Capsule (100 mg) by mouth 3 times daily if needed for Cough. 21 Capsule 08/29/2023 Active propranoloL (INDERAL) 20 mg tabletIndications:Tr emor Take 1 Tablet (20 mg) by mouth two times daily. 180 Tablet 3 09/28/2023 Active atorvastatin (LIPITOR) 20 mg tabletIndications:Hy perlipidemia, unspecified hyperlipidemia type TAKE 1 TABLET DAILY WITH THE EVENING MEAL 90 Tablet 3 09/28/2023 Active traZODone (DESYREL) 50 mg tabletIndications:Ep isode of recurrent major depressive disorder, unspecified depression episode severity (HC) Take 1 Tablet (50 mg) by mouth at bedtime. 90 Tablet 3 09/28/2023 Active venlafaxine (EFFEXOR XR) 37.5 mg Extended-Release capsuleIndications:E pisode of recurrent major depressive disorder, unspecified depression episode severity (HC) Take 1 Capsule (37.5 mg) by mouth once daily with a meal. 90 Capsule 3 09/28/2023 Active propranoloL (INDERAL) 10 mg tabletIndications:Tr emor Take 1 Tablet (10 mg) by mouth three times daily. 90 Tablet 12 09/23/2022 4 Discontinue d(*Medicati on adjustment) atorvastatin (LIPITOR) 20 mg tabletIndications:Hy perlipidemia, unspecified hyperlipidemia type TAKE 1 TABLET DAILY WITH THE EVENING MEAL 90 Tablet 3 09/23/2022 4 Discontinue d(Reorder (E-cancel not sent)) traZODone (DESYREL) 50 mg tabletIndications:Ep isode of recurrent major depressive disorder, unspecified depression episode severity (HC) Take 2 Tablets (100 mg) by mouth at bedtime. 180 Tablet 3 09/23/2022 4 Discontinue d(Reorder (E-cancel not sent)) venlafaxine (EFFEXOR XR) 37.5 mg Extended-Release capsuleIndications:E pisode of recurrent major depressive disorder, unspecified depression episode severity (HC) Take 1 Capsule (37.5 mg) by mouth once daily with a meal. 90 Capsule 3 09/23/2022 4 Discontinue d(Reorder (E-cancel not sent)) Active Problems Problem Noted Date Diagnosed Date Tremor 09/23/2022 Insomnia, idiopathic 09/23/2022 Prediabetes 09/22/2021 Adenomatous colon polyp 12/20/2017 Overview: Colonoscopy 12/2017 polyp, repeat in 5 years Hypervitaminosis D 09/05/2016 Mixed hearing loss, bilateral 08/21/2014 Other and unspecified hyperlipidemia 01/16/2007 nummular eczema 01/16/2007 Major depressive disorder, recurrent episode, un specified 11/30/2006 Generalized anxiety disorder 11/30/2006 Resolved Problems Problem Noted Date Diagnosed Date Resolved Date Breast cancer, left (HCC). On letrozole. 09/17/2013 08/09/2023 Overview: MICROSCOPIC HISTOLOGIC TYPE Infiltrating lobular carcinoma PETTY GRADE II of III Mitotic rate: 1/3 + Tubular differentiation: 3/3 + Nuclear pleomorphism: 2/3 = Conway score 6 of 9 ER positive, MO negative. 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 09/05/2013 USP current use of anticoagulant 11/19/2012 12/14/2012 Stomach pain 01/18/2008 01/19/2009 Mixed hearing loss, unilateral 11/12/2007 08/21/2014 Osteoarthrosis, unspecified whether generalized or localized, unspecified site 01/16/2007 09/28/2023 Encounters Date Type Department Care Team Description 09/28/2023 9:30 AM CDT Ancillary Procedure [facility] [address] [place] [address] Arrived 09/28/2023 8:30 AM CDT Office Visit [facility] [address] [place] [address] Serge Potter MD Medicare ANNUAL (subsequent) Visit (83 year old); Knee Pain/problem (Left knee pain, gives out once in awhile) 09/28/2023 Telephone [facility] [address] [place] [address] Serge Potter MD Referral (Audiological Evaluation) 09/28/2023 Travel 09/22/2023 Orders Only [facility] Scanner 1 scan: (1-Ord) [facility], US BREAST LT LIMITED, 09/22/2023 09/22/2023 Orders Only [facility] Scanner 1 scan: (1-Ord) [facility], DIAGNOSTIC DIGITAL MAMM W/COMPUTER AIDED DETECTION andTOMO, 09/22/2023 09/14/2023 Orders Only [facility] Scanner 1 scan: (1-Ord) [facility], SCREENING MAMMO BI, 09/14/2023 08/29/2023 3:45 PM CDT Ancillary Procedure [facility] [address] [place] [address] 08/29/2023 3:15 PM CDT Office Visit [facility] [address] [place] [address] Levon Medina MD Cough (Started 4 weeks [...] uti ) 08/29/2023 Travel 08/19/2023 Orders Only [facility] Scanner 1 scan: (1-Ord) [facility], ABD PELVIS W/CON, 08/19/2023 08/09/2023 11:20 AM CDT Office Visit [facility] [address] [place] [address] Serge Potter MD Sinus Problem (Runny nose, congestion); Cough (Productive cough) 08/08/2023 11:00 AM CDT Office Visit [facility] [address] [place] [address] Arvind Burkett, AuD Hearing Aid 08/08/2023 Travel from Last 3 Months Immunizations Name Administration Dates Next Due Amb Influenza, Inact (High-d ose) (Flu Clinic Only) 01/13/2016,01/06/2014 COVID-19 vaccine ([employer] 30mcg/0.3mL) 12YO+ BIVALENT PF, MDV 12/24/2021 COVID-19 vaccine ([employer] 30mcg/0.3mL) PF, MDV 05/21/2020,04/27/2020 Influenza, High-dose Inactivated [...] Answer Date Recorded PHQ-2 TOTAL SCORE 0 09/28/2023 Social Connections Answer Date Recorded Frequency of [...] on file Sexual Orientation Not on file Travel History Travel Start Travel End [place] 09/23/2023 09/25/2023 Obstetrics History Para Term AB IAB SAB Ectopic Multiple Livin g Live Births 2 2 2 Date Outcome GA Total Labor Labor/2nd/3rd Weight Sex Type Anes PTL Andressa A1 A5 Name Clin Para Para Last Filed Vital Signs Vital Sign Reading Time Taken Comments Blood Pressure 135/82 09/28/2023 8:34 AM CDT Pulse 80 09/28/2023 8:34 AM CDT Temperature 36.6 ??C (97.9 ??F) 08/29/2023 3:15 PM CD T Respiratory Rate 20 11/11/2020 12:50 PM CDT Oxygen Saturation 96% 09/28/2023 8:34 AM CDT Inhaled Oxygen Concentration - - Weight 66.5 kg (146 lb 9.6 oz) 09/28/2023 8:34 A M CDT Height 162.6 cm (5' 4) 09/28/2023 8:34 AM CDT Body Mass Index 25.16 09/28/2023 8:34 AM CDT Plan of Treatment Upcoming Encounters Date Type Department Care Team (Late st Contact Info) Description 11/02/2023 1:00 PM CDT Office Visit [facility] [address] [place] [address] Arvind Burkett AuD [address] [place] [phone] Health Maintenance Due Date Last Done Comments Tetanus booster 12/30/2020 12/30/2010, 03/07/2005 COVID-19 vaccine series ( season) 2022 12/24/2021, 01/02/2021, 05/21/2020, Additional history exists Influenza for age 65+ 12/03/2023 01/02/2023 , 12/24/2021, 12/24/2020, Additional history exists BMI (ht and wt on same day) for age 18+ 09/27/2024 09/28/2023, 09/23/2022, 09/22/2021, Additional history exists Depression screening for age 12+ 09/27/2024 09/28/2023, 09/28/2023, 09/23/2022, Additional history exists Medicare Wellness for age 65+ 09/28/2024, 09/23/2022, 09/22/2021, Additional history exists Tdap Completed 12/30/2010 Zoster (shingles) series for age 50+ Completed 11/09/2018, 08/30/2018, 12/10/2007 DEXA/DXA scan for age 65+ Completed 2021, 10/03/2019, 08/17/2017, Additional history exists Pneumococcal series for age 65+ Completed 09/23/2022, 11/19/2014, 03/07/2005 Procedures Procedure Name Priority Date/Time Associated Diagnosis Comments XR KNEE 3 VIEWS LEFT Routine 09/28/2023 9:26 AM CDT Chronic pain of left knee HEPATIC FUNCTION PANEL Routine 9:17 AM CDT High risk medication use BASIC METABOLIC PANEL Routine 09/28/2023 9:17 AM CDT Prediabetes LIPID PANEL W REFLEX MEASURED LDL Routine 09/28/2023 9:17 AM CDT Hyperlipidemia, unspecified hyperlipidemia type HEMOGLOBIN A1C SCREENING Routine 09/28/2023 9:17 AM CDT Prediabetes SCAN-ULTRASOUND REPORT 12:00 AM CDT SCAN-MAMMOGRAPHY REPORT 09/22/2023 12:00 AM CDT SCAN-MAMMOGRAPHY REPORT 09/14/2023 12:00 AM CDT XR CHEST 2 VIEWS PA AND LATERAL Routine 08/29/2023 3:51 PM CDT Cough, unspecified type SCAN-CT INTERPRETATION 12:00 AM CDT SCAN-BONE DENSITOMETRY DEXA 10/14/2021 12:00 AM CDT from Last 3 Months or Most Recently Relevant to Health Maintenance Results * XR KNEE 3 VIEWS LEFT (09/28/2023 9:26 AM CDT) Anatomical Region Laterality Modality KNEES, KNEE L Computed Radiogr aphy 10/01/2023 6:39 AM CDT Narrative 10/01/2023 6:39 AM CDT For Patients: ??As a result of the Cures Act, medical imaging exams and procedure reports are released immediately into your electronic medical record. ??You may view this report before your referring provider. ??If you have questions, please contact your health care provider. Indication: Chronic pain of left knee. Technique: Three views left knee Comparison: None. Findings: Bones: Alignment is normal. No fractures or bone lesions. Joint spaces: Moderate narrowing of the lateral tibiofemoral compartment joint space. Mild patellofemoral narrowing. Lateral marginal osteophytes. Possible small intra-articular body projecting near the tibial eminence on the frontal projection. Moderate joint effusion. Soft tissues: Unremarkable. Impression: Osteoarthritis Dictated by Colby Oden MD @ 10/01/2023 6:39:33 AM (Electronically Signed) Procedure Note Colby Oden MD - 10/01/2023 For Patients: As a result of the Cures Act, medical imagingexams and procedure reports are released immediately into your electronicmedical record. You may view this report before your referring provider.If you have questions, please contact your health care provider. Indication: Chronic pain of left knee. Technique: Three views left knee Comparison: None. Findings: Bones: Alignment is normal. No fractures or bone lesions. Joint spaces: Moderate narrowing of the lateral tibiofemoral compartmentjoint space. Mild patellofemoral narrowing. Lateral marginal osteophytes.Possible small intra-articular body projecting near the tibial eminence onthe frontal projection. Moderate joint effusion. Soft tissues: Unremarkable. Impression: Osteoarthritis Dictated by Colby Oden MD @ 10/01/2023 6:39:33 AM (Electronically Signed) Serge Potter MD GENERAL IMAGIN G * HEMOGLOBIN A1C SCREENING (09/28/2023 9:17 AM CDT) HEMOGLOBIN A1C SCREENING 5.9 <=6.4 % 09/28/2023 5:48 PM CDT [facility] Blood BLOOD SPECIMEN / Unknown Venipuncture / Unknown 09/28/2023 9:17 AM CDT 09/28/2023 9:17 AM CDT Narrative [facility] - 09/28/2023 5:48 PM CDT ? (<5.7%) ?Normal ? (5.7% to 6.4%) ? Indicates prediabetes ? (>=6.5%) ? Confirms diabetes Falsely low levels may be seen with: Recent Transfusion, Recent Significant Blood Loss, Hemolytic Diseases, or Falsely elevated levels may be seen with: Untreated Anemias, Splenectomy Serge Potter MD CHEMISTRY [facility] [address] [place] [address], * LIPID PANEL W REFLEX MEASURED LDL (09/28/2023 9:17 AM CDT) Pathologist [facility] [place] CHOLESTEROL,TOTAL 178 100 - 199 mg/dL 09/28/2023 6:04 PM CDT [facility] Comment: Cholesterol, Total Reference Ranges Desirable <200 mg/dL Borderline 200-239 mg/dL High >=240 mg/dL TRIGLYCERIDES 115 <150 mg/dL 09/28/2023 6:04 PM CDT [facility] HDL CHOLESTEROL 56 >40 mg/dL 6:04 PM CDT [facility] NON-HDL CHOLESTEROL 122 <145 mg/dl 09/28/2023 6:04 PM CDT [facility] CHOL/HDL RATIO 3.18 <4.50 09/28/2023 6:04 PM CDT [facility] LDL CHOLESTEROL 99 <=130 mg/dL 09/28/2023 6:04 PM CDT [facility] VLDL CHOLESTEROL 23 <=30 mg/dL 09/28/2023 6:04 PM T [facility] PROVIDER ORDERED STATUS RANDOM 09/28/2023 6:04 PM T [facility] Blood BLOOD SPECIMEN / Unknown Venipuncture / Unknown 09/28/2023 9:17 AM CDT 09/28/2023 9:17 AM CDT Serge Potter MD CHEMISTRY [facility] [address] [place] [address], * HEPATIC FUNCTION PANEL (09/28/2023 9:17 AM CDT) ALBUMIN 4.5 4.0 - 4.9 g/dL 09/28/2023 6:04 PM CDT [facility] PROTEIN,TOTAL 7.1 6.0 - 8.0 g/dL 09/28/2023 6:04 PM CDT [facility] BILIRUBIN,TOTAL 0.5 0.0 - 1.2 mg/dL 09/28/2023 6:04 PM T [facility] BILIRUBIN,DIRECT <0.2 0.0 - 0.3 mg/dL 09/28/2023 6:04 PM CDT [facility] BILIRUBIN,INDIRE CT 09/28/2023 6:04 PM T [facility] Comment:Unable to calculate, Direct Bili <0.2 ALK PHOSPHATASE 61 35 - 104 IU/L 09/28/2023 6:04 PM CDT [facility] ALT (SGPT) 22 10 - 35 IU/L 09/28/2023 6:04 PM CDT [facility] AST (SGOT) 26 10 - 35 IU/L 09/28/2023 6:04 PM T [facility] Blood BLOOD SPECIMEN / Unknown Venipuncture / Unknown 09/28/2023 9:17 AM CDT 09/28/2023 9:17 AM CDT Serge Potter MD CHEMISTRY [facility] [address] [place] [address], * (ABNORMAL) BASIC METABOLIC PANEL (09/28/2023 9:17 AM CDT) SODIUM 143 136 - 145 mmol/L 09/28/2023 6:04 PM T [facility] POTASSIUM 4.8 3.5 - 5.1 mmol/L 09/28/2023 6:04 PM T [facility] CHLORIDE 103 98 - 107 mmol/L 09/28/2023 6:04 PM T [facility] CO2,TOTAL 31(H) 22 - 29 mmol/L 09/28/2023 6:04 PM T [facility] ANION GAP 9 5 - 18 09/28/2023 6:04 PM T [facility] GLUCOSE 103(H) 70 - 99 mg/dL 09/28/2023 6:04 PM T [facility] CALCIUM 10.2 8.8 - 10.2 mg/dL 09/28/2023 6:04 PM T [facility] BUN 17 8 - 23 mg/dL 09/28/2023 6:04 PM T [facility] CREATININE 0.85 0.50 - 0.90 mg/dL 09/28/2023 6:04 PM CDT [facility] BUN/CREAT RATIO 20 10 - 20 6:04 PM CDT [facility] eGFR 68(L) >90 mL/min/1.7 3m2 09/28/2023 6:04 PM CDT [facility] Comment:As of 2021, eG FR is calculated by the CKD-EPI creatinine equation without race adjustment. ??eGFR can be influenced by muscle mass, exercise, and diet. ??The reported eGFR is an estimation only and is only applicable if the renal function is stable. Blood BLOOD SPECIMEN / Unknown Venipuncture / Unknown 09/28/2023 9:17 AM CDT 09/28/2023 9:17 AM CDT Serge Potter MD [facility] [address] [place] [address] * SCAN-MAMMOGRAPHY REPORT (09/22/2023 12:00 AM CDT) Only the most recent of2 resultswithin the time period is included. Anatomical Region Laterality Modality Other Scanner OTHER * SCAN-ULTRASOUND REPORT (09/22/2023 12:00 AM CDT) Anatomical Region Laterality Modality [...] For Patients: ??As a result of the Century Cures Act, medical imaging exams and procedure [...] 3:19 PM 09/06/2013 10:21 AM Care Teams Technical Education Teacher Relationship Specialty Start Date End Date Serge Potter MD [address] [place] [address] PCP - General Family Practice 08/24/17 Juan Oliveira MD Surgery - Orthopedics 08/14/12 [facility] [address] [place] [address] Service Order Clerk 08/14/12 Jimmie Hartman [employer] [place] [address] [place] [address] Hematology and Oncology 09/02/14
--- OUTSIDE RECORDS SUMMARY | 2023-10-03 10:51 | XMS_ITS | Clinical Summary ---
Author Organization [facility] Address [address], [place] [address] Care Team Providers Care [employer] Programmer Name Role Phone Herson Fournier MD Primary Care Provider [phone] Source Comments You are receiving this document as you are listed as the primary care provider,follow-up provider, or the patient has been referred to you for consultation.This is in compliance with the Medicare and[facility] EHR Incentive Program,which states Providers who transition their patient to another setting of careor provider of care or refers their patient to another provider of care shouldprovide summary care record for each transition of care or referral. [facility] Allergies No known active allergies [...] Description 08/07/2023 3:20 PM CDT Office Visit [facility] [address] [place] [address] Agustin Pascual, DESIGN DRAFTSMAN, INSTRUCTOR BUSINESS EDUCATION Nasal congestion; Post-nasal drainage; Cough, unspecified type [...] age to complete this topic Care Teams [employer] Programmer Relationship Specialty Start Date End Date Herson Fournier MD [address] [place] [address] PCP - General 07/05/10
--- NOTE | 2023-10-03 11:15 | CRLHL7_ITS ---
For Patients: As a result of the Century Cures Act, medical imaging exams and procedure reports are released immediately into your electronic medical record. You may view this report before your referring provider. If you have questions, please contact your health care provider. ULTRASOUND-GUIDED BREAST BIOPSY AND POST-BIOPSY DIGITAL MAMMOGRAM FOR BIOPSY MARKER PLACEMENT CLINICAL HISTORY: Indeterminate lesion. COMPARISON STUDIES: 09/22/2023. TECHNIQUE: Real-time ultrasound with image documentation was used for targeting the breast lesion. Core biopsy specimens were obtained using an automated gun with a 18-gauge biopsy needle. Post-biopsy CC and ML digital mammograms were obtained to document position of the biopsy marker. CONSENT and TIME OUT: The procedure, risks, and alternatives were explained to the patient and a consent was signed. [place] Protocol was followed including pre-procedure verification that relevant information/documentation was available, reviewed and properly matched to the patient; consent accurate and complete; and equipment and supplies available. Time Out was conducted just prior to starting procedure to verify the four required elements: patient identity, correct side/site marked (if applicable), procedure, relevant images/results properly labeled and displayed (if applicable). PROCEDURE: The patient was positioned supine on the ultrasound table. The breast was prepped with ChloraPrep. 8 cc of 1 percent lidocaine used for local anesthesia. Core samples were obtained. A sterile metal biopsy clip was placed percutaneously to leon the lesion position within the breast. The specimens were placed in 10% formalin and sent to the pathology department. Pressure was held on the biopsy site until all bleeding subsided. The skin incision was closed with Steri-Strips. An ice pack was positioned over the biopsy site. Post-biopsy instructions were reviewed with the patient, and a written copy was given to her. LATERALITY: LEFT breast. LESION: Heterogeneous solid lesion measuring 11 x 8 x 8 millimeters at 3 o`clock 5 cm from the nipple. SUSPICION FOR MALIGNANCY: High. NUMBER OF SAMPLES: 5. BIOPSY CLIP SHAPE: Oval. PROXIMITY OF CLIP TO TARGET: Within the lesion. IMPRESSION: Ultrasound-guided breast biopsy. When the pathology report is available, an addendum to this report will be made. ACR not applicable Dictated by Antwan Patel MD @ 10/03/2023 12:42:26 PM jj/Dictated by: Antwan Patel MD @ 10/03/2023 12:42:00 PM (Electronically Signed)
--- NOTE | 2023-10-03 12:00 | CRLHL7_ITS ---
For Patients: As a result of the Century Cures Act, medical imaging exams and procedure reports are released immediately into your electronic medical record. You may view this report before your referring provider. If you have questions, please contact your health care provider. PLEASE SEE ULTRASOUND-GUIDED LEFT BREAST BIOPSY PERFORMED SAME DAY CRL:ed ward/Dictated by: Antwan Patel MD @ 10/03/2023 12:42:00 PM (Electronically Signed)
== END 2023-10-03 10:50 | disposition home or self-care (01) ==
LOC: US 10:49
PROVIDERS: PCP Family Medicine; Visit Provider Internal Medicine Hematology & Oncology
DX: N63.20 Unspecified lump in the left breast, unspecified quadrant (principal); C50.912 Malignant neoplasm of unspecified site of left female breast; R92.8 Other abnormal and inconclusive findings on diagnostic imaging of breast
CPT/HCPCS: 19083; 77065; 88305; 88360; 88361; A4648; A4649

== ENCOUNTER 2023-10-20 14:07 | Outpatient (CLI) | payer MEDICARE, BC, SELFPAY ==
--- OUTSIDE RECORDS SUMMARY | 2023-10-20 14:09 | XMS_ITS | Clinical Summary ---
Author Organization [facility] Address [address], [place] [address] Care Team Providers Care Resident Athletic Trainer Name Role Phone Herson Fournier MD Primary Care Provider + [phone] Source Comments You are receiving this document as you are listed as the primary care provider,follow-up provider, or the patient has been referred to you for consultation.This is in compliance with the Medicare and[facility] E[facility] Incentive [facility],which states Providers who transition their patient to another setting of careor provider of care or refers their patient to another provider of care shouldprovide summary care record for each transition of care or referral. [facility] Allergies No known active allergies [...] Description 08/07/2023 3:20 PM CDT Office Visit [id number] [id number] [place] [address] Agustin Pascual, TAPE DUPLICATOR, STEAM FINISHER Nasal congestion; Post-nasal drainage; Cough, unspecified type [...] COVID-19 Vaccine ( season) 2022 12/24/2021, 01/02/2021 Influenza (#1) 2023 01/02/2023, 12/03, 12/24/2020, Additional history exists Zoster/Shingles Completed 11/09/2018, 08/03, 12/10/2007 Pneumococcal 65+ Yrs Completed 09/23/2022, 11/19/2014, 03/07/2005 HepA Aged Out No longer eligi ble [...] age to complete this topic Care Teams Resident Athletic Trainer Relationship Specialty Start Date End Date Herson Fournier MD [id number] [place] [address] PCP - General 07/05/10
--- OUTSIDE RECORDS SUMMARY | 2023-10-20 14:09 | XMS_ITS | Clinical Summary ---
Author Organization [facility] Address [place], [place] [address] Care Team Providers Care Pit And Auxiliaries Supervisor Name Role Phone Juan Oliveira MD Unavailable Unavail able Jose D Florence Unavailable [phone] Jimmie Hartman Unavailable Unavailable Serge Potter MD [...] Petty score 6 of 9 ER positive, CA negative. 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 11/19/2012 12/14/2012 Stomach pain 01/18/2008 01/19/2009 Mixed hearing loss, unilateral 11/12/2007 08/21/2014 Osteoarthrosis, unspecified whether generalized or localized, unspecified site 01/16/2007 09/28/2023 Encounters Date Type Department Care Team Description 10/11/2023 7:00 AM CDT Orders Only [facility] [address] [address] Lab 10/10/2023 3:15 PM CDT Office Visit [facility] [address] [address] Rosa Gale MD Consult (Left breast cancer) 10/10/2023 Travel 10/03/2023 Orders Only [facility] Scanner 1 scan: (1-Ord) [facility], US GUIDED BREAST BIOPSY LT , 10/03/2023 10/03/2023 Orders Only [facility] Scanner 1 scan: (1-Ord) [place], MM CLIP PLACEMENT LT, 10/03/2023 10/03/2023 Lab Requisition [facility] [phone] Carrie Banuelos MD 09/28/2023 9:30 AM CDT Ancillary Procedure [facility] [address] [place] [address] 09/28/2023 8:30 AM CDT Office Visit [facility] [address] [place] [address] Serge Potter MD Medicare ANNUAL (subsequent) Visit (83 year old); Knee Pain/problem (Left knee pain, gives out once in awhile) 09/28/2023 Telephone [facility] [address] [facility] [place] [facility] [place] [address] Serge Potter MD Referral (Audiological Evaluation) 09/28/2023 Travel 09/22/2023 Orders Only [facility] Scanner 1 scan: (1-Ord) [facility], BREAST LT LIMITED, 09/22/2023 09/22/2023 Orders Only [facility] Scanner 1 scan: (1-Ord) [facility] DIAGNOSTIC DIGITAL MAMM W/COMPUTER AIDED DETECTION andTOMO, 09/22/2023 09/14/2023 Orders Only [facility] Scanner 1 scan: (1-Ord) [facility], SCREENING MAMMO BI, 09/14/2023 08/29/2023 3:45 PM CDT Ancillary Procedure [facility] [address] [place] [address] 08/29/2023 3:15 PM CDT Office Visit [facility] [address] [facility] [place] [facility] [place] [address] Levon Medina MD Cough (Started 4 weeks [...] uti ) 08/29/2023 Travel 08/19/2023 Orders Only [facility] Scanner 1 scan: (1-Ord) [facility], ABD PELVIS W/CON, 08/19/2023 08/09/2023 11:20 AM CDT Office Visit [facility] [address] [place] [address] Serge Potter MD Sinus Problem (Runny nose, congestion); Cough (Productive cough) 08/08/2023 11:00 AM CDT Office Visit [facility] [address] [place] [address] Arvind Burkett, AuD Hearing Aid 08/08/2023 Travel [...] file Travel History Travel Start Travel End [place] 09/23/2023 09/25/2023 Obstetrics History Para Term AB IAB SAB Ectopic Multiple Livin g Live Births 2 2 2 Date Outcome GA Total Labor Labor/2nd/3rd Weight Sex Type Anes PTL Andressa A1 A5 Name Clin Para Para Last Filed Vital Signs Vital Sign Reading Time Taken Comments Blood Pressure 148/77 10/10/2023 3:06 PM CDT Pulse 86 10/10/2023 3:06 PM CDT Temperature 36.6 ??C (97.9 ??F) 08/29/2023 3 :15 PM CDT Respiratory Rate 20 11/11/2020 12:5 0 PM CDT Oxygen Saturation 100% 10/10/2023 3:0 6 PM CDT Inhaled Oxygen Concentration - - Weight 67.3 kg (148 lb 6.4 oz) 10/10/19 3:06 PM CDT with shoes Height 162.6 cm (5' 4) 09/28/2023 8:34 AM CDT Body Mass Index 25.47 09/28/2023 8:34 AM CDT Plan of Treatment Upcoming Encounters Date Type Department Care Team (Late st Contact Info) Description 10/27/2023 11:45 AM CDT Office Visit [facility] [address] [place] [address] Serge Potter MD [address] [place] [address] 11/02/2023 9:00 AM CDT Office Visit [facility] at [address] [phone] Rosa Gale MD [address] [place] [address] 11/30/2023 2:00 PM CDT Office Visit [facility] [address] [place] [address] Arvind Burkett AuD [address] [place] [phone] Health Maintenance Due Date Last Done Comments [...] Procedure Name Priority Date/Time Associated Diagnosis Comments OCCULT BLOOD IFOBT STOOL Routine 10/11/2023 7:48 AM CDT Screening for colon cancer LAB TRACKING EVENT Routine 10/03/2023 11 :35 AM CDT PATH BREAST CORE BIOPSY Routine 10/03/2023 11:35 AM CDT SCAN-MAMMOGRAPHY REPORT 10/03/2023 12:00 AM CDT SCAN-OPERATIVE/PROCEDU RE REPORT 10/03/2023 12:00 AM CDT XR KNEE 3 VIEWS LEFT Routine 09/28/2023 [...] Recently Relevant to Health Maintenance Results * OCCULT BLOOD IFOBT STOOL (10/11/2023 7:48 AM CDT) STOOL BLOOD ,IFOBT Negative Negative 10/18/2023 10:41 AM CDT [facility] Stool STOOL SPECIMEN / Unknown Non-Blood / Unknown 10/11/2023 7:48 AM CDT 10/17/2023 7:48 AM CDT Serge Potter MD LABORATORY Performing Organization Address City/[facility]/ZIP Co de Phone Number [facility] [address] [place] [address], * LAB TRACKING EVENT (10/03/2023 11:35 AM CDT) Other (Other) Client Collect / Unknown 10/03/2023 11:35 AM CDT 10/03/2023 10:03 PM CDT Carrie Banuelos MD LAB BILL ONLY [facility] [address] [place] [address], * PATH BREAST CORE BIOPSY (10/03/2023 11:35 AM CDT) Case Report Pathology Report ?Case: [id number] ? Authorizing Provider: ??Carrie Banuelos MD ?Collected: ? 10/03/2023 1135 ? Ordering Location: ? [facility] ?Received: ?10/04/2023 0826 ? Pathologist: ? Kelly Su, ? MD ? Specimen: ?Left Breast Core Ultrasound Biopsy ? 10/10/2023 3:44 PM CDT [facility] Amendment 10/09/2023 - Amendment issued to incorporate ancillary studies. 10/10/2023 - Amendment issued to incorporate ancillary studies. 10/10/2023 3:44 PM CDT [facility]OR[facility] Final Diagnosis A) LEFT BREAST, 3:00, 5 CM FROM NIPPLE, ULTRASOUND-GUIDED CORE BIOPSY: 1. 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 a. Petty grade: II of III; Van score: 6 of 9 ?? b. Angio-lymphatic invasion: Absent ?? c. Associated LCIS: Absent 2. Breast Ancillary Testing: ?a. Hormone Receptors: ?Estrogen receptor: Positive (97%, strong staining) ?Progesterone receptor: Negative ?b. HER2 by IHC: Negative (1+ by manual morphometry) ?c. Ki-67: 16% 10/10/2023 3:44 PM CDT [facility] Amendment electronically signed by Antwan Naik MD on 10/10/2023 at 3:44 PM Amendment electronically signed by Linsey Babin MD on 10/09/2023 at 11:37 AM Comment A) The tumor is morphologically similar to the patient's previously treated left breast invasive lobular carcinoma (select slides from prior lumpectomy case [id number] were reviewed). This is an image-guided breast biopsy. The pathologic findings should be correlated with radiologic and clinical findings prior to treatment decisions. Case seen in consultation with Dr. Joya. 10/10/2023 3:44 PM CDT [facility] Clinical Information History of LEFT breast invasive lobular carcinoma, Van grade II, ER positive, CA and HER2 negative at the 9:00 position, 3 cm from the nipple, status post lumpectomy in 2014 ([id number]). 11 x 8 x 8 mm, irregular, indistinct, solid and hypo- and hyperechoic LEFT breast mass at 3:00, 5 cm from the nipple. 10/10/2023 3:44 PM CDT [facility] Gross Description A) Label: Patient's name and LT BR BX 3:00 5 cm FN Description: 5 Fibrofatty core biopsies Size: 1.3-1.8 cm in length by 0.2 cm in diameter Ink color: Green The specimen is submitted in toto in one cassette. Cold ischemic time: Less than 60 minutes, meets current ASCO/CAP guidelines. ?? The specimen was fixed in formalin for a minimum of 6 hours and not longer than 72 hours. TLF 10/04/2023 ? 10/10/2023 3:44 PM CDT [facility] Microscopic Description The final diagnosis is based on microscopic examination of appropriate sections of all specimens. A) The presence of green ink is confirmed on tissue sections. 10/10/2023 3:44 PM CDT [facility] SYNOPTIC REPORTING Breast Biomarker Reporting Template BREAST BIOMARKER REPORTING TEMPLATE - A Protocol posted: 03/15/2023 ?? Test(s) Performed: ? Estrogen Receptor (ER) Status: ?Positive (greater than 10% of cells demonstrate nuclear positivity) ? Percentage of Cells with Nuclear Positivity: ?97 % ? Average Intensity of Staining: ?Strong ? Test Type: ?Laboratory-devel oped test ? Primary Antibody: ?SP1 ?? Test(s) Performed: ? Progesterone Receptor (PgR) Status: ?Negative (less than 1%) ? : ?Internal control cells absent ? Test Type: ?Laboratory-devel oped test ? Primary Antibody: ?16 ?? Test(s) Performed: ? HER2 by Immunohistochemist ry: ?Negative (Score 1+) ? Test Type: ?Laboratory-devel oped test ? Primary Antibody: ?4B5 ?? Test(s) Performed: ?Ki-67 ? Ki-67 Percentage of Positive Nuclei: ?16 % ? Primary Antibody: ?MIB1 ?? Cold Ischemia and Fixation Times: ?Meet requirements specified in latest version of the ASCO / CAP Guidelines ?? Testing Performed on Block Number(s): ?A1 METHODS ?? Fixative: ?Formalin ?? Image Analysis: ?Performed ? Method: ?Aperio morphometric analysis ? Biomarkers Scored by Image Analysis: ?ER ? Biomarkers Scored by Image Analysis: ?PgR ? Biomarkers Scored by Image Analysis: ?Ki-67 ?? Comment(s): ?2,655 ??nuclei analyzed for Ki-67 10/10/2023 3:44 PM CDT [facility] [employer] [facility] Additional Information Interpreted at [facility] - [address] [place] [address] [address] [address] Immunohistochemist ry controls were reviewed and approved by the pathologist during this examination. Patients with breast cancers that are HER2 IHC 3+ or IHC 2+/CASIE amplified may be eligible for several therapies that disrupt HER2 signaling pathways. Invasive breast cancers that test 'HER2-negative' (IHC 0, 1+ or 2+/CASIE not-amplified) are more specifically considered 'HER2-negative for protein overexpression/gen e amplification' since non-overexpressed levels of the HER2 protein may be present in these cases. Patients with breast cancers that are HER2 IHC 1+ or IHC 2+/CASIE not amplified may be eligible for a treatment that targets non-amplified/non- overexpressed levels of HER2 expression for cytotoxic drug delivery (IHC 0 results do not result in eligibility currently). 10/10/2023 3:44 PM CDT [facility] Other (Left Breast Core Ultrasound Biopsy) 10/03/2023 11:35 AM CDT 10/04/2023 8:26 AM CDT Carrie Banuelos MD PATHOLOGY/CYTOLOGY [facility] [address] [place] [address], * SCAN-OPERATIVE/PROCEDURE REPORT (10/03/2023 12:00 AM CDT) Scanner OTHER * SCAN-MAMMOGRAPHY REPORT (10/03/2023 12:00 AM CDT) Only the most recent of3 resultswithin the time period is included. Anatomical Region Laterality Modality Other Scanner OTHER * XR KNEE 3 VIEWS LEFT (09/28/2023 [...] 5.9 <=6.4 % 09/28/2023 5:48 PM CDT [facility] Blood BLOOD SPECIMEN / Unknown Venipuncture / Unknown 09/28/2023 9:17 AM CDT 09/28/2023 9:17 AM CDT Narrative [facility] - 09/28/2023 5:48 PM CDT ? (<5.7%) ?Normal ? (5.7% to 6.4%) ? Indicates prediabetes ? (>=6.5%) ? Confirms diabetes Falsely low levels may be seen with: Recent Transfusion, Recent Significant Blood Loss, Hemolytic Diseases, or Falsely elevated levels may be seen with: Untreated Anemias, Splenectomy Serge Potter MD CHEMISTRY [facility] [address] [place] [address], * LIPID PANEL W REFLEX MEASURED LDL (09/28/2023 9:17 AM CDT) Pathologist [facility] CHOLESTEROL,TOTAL 178 100 - 199 mg/dL 09/28/2023 6:04 PM T [facility] TR[facility] LABORATORY Comment: Cholesterol, Total Reference Ranges Desirable <200 mg/dL Borderline 200-239 mg/dL High >=240 mg/dL TRIGLYCERIDES 115 <150 mg/dL 09/28/2023 6:04 PM CDT [facility] HDL CHOLESTEROL 56 >40 mg/dL 6:04 PM T [facility] NON-HDL CHOLESTEROL 122 <145 mg/dl 09/28/2023 6:04 PM T [facility] CHOL/HDL RATIO 3.18 <4.50 09/28/2023 6:04 PM T [facility] LDL CHOLESTEROL 99 <=130 mg/dL 09/28/2023 6:04 PM T [facility] VLDL CHOLESTEROL 23 <=30 mg/dL 09/28/2023 6:04 PM CDT [facility] PROVIDER ORDERED STATUS RANDOM 09/28/2023 6:04 PM CDT [facility] Blood BLOOD SPECIMEN / Unknown Venipuncture / Unknown 09/28/2023 9:17 AM CDT 09/28/2023 9:17 AM CDT Serge Potter MD CHEMISTRY [facility] [address] [place] [address], * HEPATIC FUNCTION PANEL (09/28/2023 9:17 AM CDT) ALBUMIN 4.5 4.0 - 4.9 g/dL 09/28/2023 6:04 PM CDT [facility] PROTEIN,TOTAL 7.1 6.0 - 8.0 g/dL 09/28/2023 6:04 PM CDT [facility] BILIRUBIN,TOTAL 0.5 0.0 - 1.2 mg/dL 09/28/2023 6:04 PM CDT [facility] BILIRUBIN,DIRECT <0.2 0.0 - 0.3 mg/dL 09/28/2023 6:04 PM CDT [facility] BILIRUBIN,INDIRE CT 09/28/2023 6:04 PM CDT [facility] Comment:Unable to calculate, Direct Bili <0.2 ALK PHOSPHATASE 61 35 - 104 IU/L 09/28/2023 6:04 PM CDT [facility] ALT (SGPT) 22 10 - 35 IU/L 09/28/2023 6:04 PM CDT [facility] AST (SGOT) 26 10 - 35 IU/L 09/28/2023 6:04 PM CDT [facility] Blood BLOOD SPECIMEN / Unknown Venipuncture / Unknown 09/28/2023 9:17 AM CDT 09/28/2023 9:17 AM CDT Serge Potter MD CHEMISTRY [facility] [address] [place] [address], * (ABNORMAL) BASIC METABOLIC PANEL (09/28/2023 9:17 AM CDT) SODIUM 143 136 - 145 mmol/L 09/28/2023 6:04 PM T [facility] POTASSIUM 4.8 3.5 - 5.1 mmol/L 09/28/2023 6:04 PM T [facility] CHLORIDE 103 98 - 107 mmol/L 09/28/2023 6:04 PM T [facility] CO2,TOTAL 31(H) 22 - 29 mmol/L 09/28/2023 6:04 PM T [facility] ANION GAP 9 5 - 18 09/28/2023 6:04 PM T [facility] GLUCOSE 103(H) 70 - 99 mg/dL 09/28/2023 6:04 PM T [facility] CALCIUM 10.2 8.8 - 10.2 mg/dL 09/28/2023 6:04 PM T [facility] BUN 17 8 - 23 mg/dL 09/28/2023 6:04 PM [facility] TR[facility] LAB[facility] CREATININE 0.85 0.50 - 0.90 mg/dL 09/28/2023 6:04 PM [facility] TR[facility] BUN/CREAT RATIO 20 10 - 20 6:04 PM T [facility] eGFR 68(L) >90 mL/min/1.7 3m2 09/28/2023 6:04 PM T [facility] Comment:As of 2021, eG FR [...] 9:17 AM CDT Serge Potter MD CHEMISTRY [facility] LABORATORY [address] [place] [address], [place] * SCAN-ULTRASOUND REPORT (09/22/2023 12:00 AM CDT) [...] 3:19 PM 09/06/2013 10:21 AM Care Teams Pit And Auxiliaries Supervisor Relationship Specialty Start Date End Date Serge Potter MD [address] [place] [address] PCP - General Family Practice 08/24/17 Juan Oliveira MD Surgery - Orthopedics 08/14/12 Jose D Florence [facility] [address] [place] [address] Resistance Brazer 08/14/12 Jimmie Hartman [facility] [address] [place] [address] Hematology and Oncology 09/02/14
--- OUTSIDE RECORDS SUMMARY | 2023-10-20 14:09 | XMS_ITS | Encounter Summary ---
Author Organization [facility] Address [address], [place] [address] Care Team Providers Care Party Demonstrator Name Role Phone Herson Fournier MD Primary Care Provider [phone] Reason for Visit * Reason Comments Cold Symptoms Encounter Details Date Type Department Care Team (Late st Contact Info) Description 08/07/2023 3:20 PM CDT Office Visit [facility] [address] [place] [address] Agustin Pascual, LILA, ELECTRIC SCREW DRIVER OPERATOR [address] [place], [place] [id number] Nasal congestion; Post-nasal drainage; Cough, unspecified type [...] Instructions * Patient Instructions* Agustin Pascual, LILA, ELECTRIC SCREW DRIVER OPERATOR - 08/07/2023 3:20 PM CDT *You may use kbfx-cal-nfmfngz cough and cold medicine such as DayQuil and NyQuil or their generic equivalents. *For nasal congestion you may add and pseudoephedrine (short acting). *Often even if you do not have known allergies there may be a allergy component and try an drkh-clo-bvopozk antihistamine such as Zyrtec, Prerna, Xyzal, or [...] concerns or complaints. Has been using some yvzp-knf-fygznzm medications with little relief. Review of Systems: [...] R05.9 PLAN: Patient Instructions *You may use jrjl-mpp-dyuyqfh cough and cold medicine such as DayQuil and NyQuil or their generic equivalents. *For nasal congestion you may add and pseudoephedrine (short acting). *Often even if you do not have known allergies there may be a allergy component and try an ujwi-esn-hdrztlp antihistamine such as Zyrtec, Prerna, Xyzal, or [...] 0 We discussed contagiousness. You may use vpbe-lox-rierprq cough and cold medicine such as DayQuil and NyQuil or their generic equivalents. For nasal congestion you may add and pseudoephedrine (short acting). Often even if you do not have known allergies there may be a allergy component and try an ov ce-bxw-mgsojai antihistamine such as Zyrtec, Prerna, Xyzal, or [...] type documented in this encounter Care Teams Party Demonstrator Relationship Specialty Start Date End Date Herson Fournier MD [address] [place] [address] PCP - General 07/05/10 documented as of this encounter
--- NOTE | 2023-10-20 14:30 | CRLHL7_ITS ---
For Patients: As a result of the 21st Century Cures Act, medical imaging exams and procedure reports are released immediately into your electronic medical record. You may view this report before your referring provider. If you have questions, please contact your health care provider. BILATERAL BREAST MRI WITHOUT AND WITH GADOLINIUM CLINICAL HISTORY: 83-year-old with recent diagnosis of invasive lobular carcinoma, grade II at the LEFT 3 o`clock position, 5 cm from nipple. This was a screen -detected mass with ultrasound guided needle core biopsy performed on 10/03/2023. Clip placement on target. Ultrasound measurement 1.1 x 0.8 x 0.8 cm. Patient is status post lumpectomy and radiation therapy for invasive lobular carcinoma in 2013, located at the LEFT 9 o`clock location, 3 cm from the nipple. Family history of three paternal aunts with breast cancer and a paternal cousin with ovarian cancer. INDICATION FOR BREAST MRI: Staging of newly diagnosed breast cancer and screening of contralateral breast. Regional lymph nodes will also be assessed. COMPARISON STUDIES: MRI 01/05/2015. Mammogram 09/12/2022, 09/14/2023, 09/22/2023, 10/03/2023. Ultrasound 09/22/2023, 10/03/2023. CONTRAST: 20 cc Dotarem. TECHNIQUE: The patient was positioned prone using a breast coil. Multiple imaging sequences were obtained using 1-1.5 mm thick slices with no gap. The image sequences include T2-weighted STIR in the axial plane, T1-weighted nonfat-saturated gradient echo in the axial plane, pre- and post-contrast T1-weighted FLASH 3D with fat suppression in the axial plane, and T1-weighted FLASH high resolution 3D with fat suppression in the sagittal plane. Image post-processing was performed on a [employer] workstation. Complex 3D rendering including maximum intensity projections (MIPS) and volumetric renderings were obtained to optimize visualization of the extent of pathology and relationship to the nipple, skin, and chest wall. This aids in determining feasibility of breast conservation surgery. Subtraction, multiplanar reconstruction, mean curve determination, and angiogenesis mapping were also performed. The study was technically adequate. FINDINGS: Amount of Fibroglandular Tissue: Scattered fibroglandular tissue. Breast Background Enhancement: Mild. RIGHT Breast: No suspicious mass or non-mass enhancement. LEFT Breast: LEFT 3-4 o`clock location, 3 cm from the nipple: Irregular enhancing mass with surrounding suspicious non-mass enhancement at site of biopsy-proven carcinoma with associated clip artifact. Mass enhancement shows rapid initial uptake with delayed washout. The area of mass and non-mass enhancement measures 2.0 cm ML x 1.6 cm SI x 2.5 cm AP. This extends within 2-3 mm to the lateral skin. LEFT 9 o`clock location: Lumpectomy site shows no evidence of suspicious enhancement. Nonenhancing T2 hyperintense skin thickening and T2 hyperintensity throughout the left breast, consistent with history of radiation therapy. Lymph Nodes: No axillary or internal mammary chain lymphadenopathy. IMPRESSIONS AND RECOMMENDATIONS: 1. Unifocal biopsy-proven carcinoma LEFT 3-4 o`clock location, 3 cm from the nipple showing an irregular enhancing mass with surrounding non-mass enhancement at site of biopsy-proven carcinoma. The area measures 2.0 x 1.6 x 2.5 cm and extends closely to the lateral skin. 2. Benign-appearing postsurgical and postradiation changes elsewhere in the LEFT breast. BI-RADS Category 6: Known biopsy-proven malignancy Dictated by Marycruz Arrieta MD @ 10/23/2023 10:05:49 AM jj/Dictated by: Marycruz Arrieta MD @ 10/23/2023 10:10:00 AM (Electronically Signed)
== END 2023-10-20 14:08 | disposition home or self-care (01) ==
LOC: MRI 14:08
PROVIDERS: PCP Family Medicine; Visit Provider Surgery
DX: C50.912 Malignant neoplasm of unspecified site of left female breast (principal)
CPT/HCPCS: 77049; C8908; C8937; A9575

== ENCOUNTER 2023-11-02 06:03 | Day surgery (SDC) | payer MEDICARE, BC, SELFPAY ==
[2023-11-02] VITALS (25 sets, daily range): BP systolic 97–152; BP diastolic 46–76; PULSE 66–90; RESP 14–20; TEMP 36.1–36.8; O2SAT 92–98; BMI 25.2
--- OUTSIDE RECORDS SUMMARY | 2023-11-02 06:07 | XMS_ITS | Clinical Summary ---
Author Organization [facility] Address [address] [address] Care Team Providers Care Food Preparer Name Role Phone Herson Fournier MD Primary Care Provider + [phone] Source Comments You are receiving this document as you are listed as the primary care provider,follow-up provider, or the patient has been referred to you for consultation.This is in compliance with the Medicare and[facility] EHR Incentive Program,which states Providers who transition their patient to another setting of careor provider of care or refers their patient to another provider of care shouldprovide summary care record for each transition of care or referral. [facility] Allergies No known active allergies Medications [...] Description 08/07/2023 3:20 PM CDT Office Visit [place] [address] [place] [address] Agustin Pascual, FAIRING WORKER, EXHIBITOR SALES Nasal congestion; Post-nasal drainage; Cough, unspecified type [...] age to complete this topic Care Teams Food Preparer Relationship Specialty Start Date End Date Herson Fournier MD [address] [place] [address] PCP - General 07/05/10
--- OUTSIDE RECORDS SUMMARY | 2023-11-02 06:07 | XMS_ITS | Clinical Summary ---
Author Organization [facility] Address [place], [place] [address] Care Team Providers Care Physically Impaired Teacher Name Role Phone Juan Oliveira MD Unavailable Unavail able Ludivina Jose D M Unavailable Jimmie Hartman Unavailable Unavailable Serge Potter MD [...] Drop into both eyes once daily. Active glucosamine HCl 1,500 mg tab Take [...] a meal. 90 Capsule 3 09/28/2023 Active letrozole (FEMARA) 2.5 mg tabletIndications:Ma lignant neoplasm of lower-inner quadrant of left female breast (HC) Take 1 tablet by mouth once daily. 0 09/04/2015 4 Discontinue d(*Med complete/Re gimen complete/Le tung of care change) Active Problems Problem Noted Date Diagnosed Date [...] Petty score 6 of 9 ER positive, VA negative. 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 09/05/2013 [facility] current use of anticoagulant 11/19/2012 12/14/2012 Stomach pain 01/18/2008 01/19/2009 Mixed hearing loss, unilateral 11/12/2007 08/21/2014 Osteoarthrosis, unspecified whether generalized or localized, unspecified site 01/16/2007 09/28/2023 Encounters Date Type Department Care Team Description 10/27/2023 11:45 AM CDT Office Visit [facility] [address] [place] [address] Serge Potter MD Preoperative Exam (DOS: 11/02/2023, left mastectomy, Dr. Gale, [facility]) 10/27/2023 Travel 10/20/2023 Orders Only [facility] Scanner 1 [facility], 10/20/2023 10/11/2023 7:00 AM CDT Orders Only [facility] [address] [place] [address] Lab 10/10/2023 3:15 PM CDT Office Visit [facility] [address] [place] [address] Rosa Gale MD Consult (Left breast cancer) 10/10/2023 Travel 10/03/2023 Orders Only [facility] Scanner 1 scan: (1-Ord) [facility], US GUIDED BREAST BIOPSY LT , 10/03/2023 10/03/2023 Orders Only [facility] Scanner 1 scan: (1-Ord) [place], MM CLIP PLACEMENT LT, 10/03/2023 10/03/2023 Lab Requisition [facility] [phone] Carrie Banuelos MD 09/28/2023 9:30 AM CDT Ancillary Procedure [facility] [address] [facility] [address] 09/28/2023 8:30 AM CDT Office Visit [facility] [address] [place] [address] Serge Potter MD Medicare ANNUAL (subsequent) Visit (83 year old); Knee Pain/problem (Left knee pain, gives out once in awhile) 09/28/2023 Telephone [facility] [address] [place] [address] Serge Potter MD Referral (Audiological Evaluation) 09/28/2023 Travel 09/22/2023 Orders Only [facility] Scanner 1 scan: (1-Ord) [facility], US BREAST LT LIMITED, 09/22/2023 09/22/2023 Orders Only [facility] Scanner 1 scan: (1-Ord) [place], DIAGNOSTIC DIGITAL MAMM W/COMPUTER AIDED DETECTION andTOMO, 09/22/2023 09/14/2023 Orders Only [facility] Scanner 1 scan: (1-Ord) [facility], SCREENING MAMMO BI, 09/14/2023 08/29/2023 3:45 PM CDT Ancillary Procedure [address] [place] [address] 08/29/2023 3:15 PM CDT Office Visit [address] [address] Levon Medina MD Cough (Started 4 weeks [...] uti ) 08/29/2023 Travel 08/19/2023 Orders Only [facility] Scanner 1 scan: (1-Ord) [facility], ABD PELVIS W/CON, 08/19/2023 08/09/2023 11:20 AM CDT Office Visit [facility] [address] [place] [address] Serge Potter MD Sinus Problem (Runny nose, congestion); Cough (Productive cough) 08/08/2023 11:00 AM CDT Office Visit [facility] [address] [place] [address] Arvind Burkett, AuD Hearing Aid 08/08/2023 Travel from Last 3 Months Immunizations Name Administration Dates Next Due Amb Influenza, Inact (High-d ose) (Flu Clinic Only) 01/13/2016,01/06/2014 COVID-19 vaccine ([employer] NTech 30mcg/0.3mL) 12YO+ BIVALENT PF, MDV 12/24/2021 COVID-19 vaccine ([employer] NTech 30mcg/0.3mL) PF, MDV 05/21/2020,04/27/2020 Influenza, High-dose [...] Sign Reading Time Taken Comments Blood Pressure 124/73 10/27/2023 11:39 AM CDT Pulse 82 10/27/2023 11:39 AM CDT Temperature 36.6 ??C (97.9 ??F) 08/29/2023 3:15 PM CD T Respiratory Rate 20 11/11/2020 12:5 0 PM CDT Oxygen Saturation 95% 10/27/2023 11: 39 AM CDT Inhaled Oxygen Concentration - - Weight 66.6 kg (146 lb 12.8 oz) 024 11:39 AM CDT Height 163.4 cm (5' 4.33) 10/27/2023 1 1:39 AM CDT Body Mass Index 24.94 10/27/2023 11:39 AM CDT Plan of Treatment Upcoming Encounters Date Type Department Care Team (Late st Contact Info) Description 11/02/2023 9:00 AM CDT Office Visit [facility] at [address] [address] Rosa Gale MD [address] [place] [address] 11/30/2023 2:00 PM CDT Office Visit [facility] [address] [place] [address] Arvind Burkett AuD [address] [facility] [place] [phone] Health Maintenance Due Date Last Done Comments Tetanus booster 12/30/2020 12/30/2010, 03/07/2005 COVID-19 vaccine series ( season) 2022 12/24/2021, 01/02/2021, 05/21/2020, Additional history exists Influenza for age 65+ 12/03/2023 01/02/2023 , 12/24/2021, 12/24/2020, Additional history exists Depression screening for age 12+ 09/27/2024 09/28/2023, 09/28/2023, 09/23/2022, Additional history exists Medicare Wellness for age 65+ 09/28/2024, 09/23/2022, 09/22/2021, Additional history exists BMI (ht and wt on same day) for age 18+ 10/26/2024 10/27/2023, 09/28/2023, 09/23/2022, Additional history exists Tdap Completed 12/30/2010 Zoster (shingles) series for age 50+ Completed 11/09/2018, 08/30/2018, 12/10/2007 DEXA/DXA scan for age 65+ Completed 2021, 10/03/2019, 08/17/2017, Additional history exists Pneumococcal series for age 65+ Completed 09/23/2022, 11/19/2014, 03/07/2005 Procedures Procedure Name Priority Date/Time Associated Diagnosis Comments SCAN-MRI INTERPRETATION 10/20/2023 12:00 AM CDT OCCULT BLOOD IFOBT STOOL Routine 10/11/2023 7:48 [...] Recently Relevant to Health Maintenance Results * SCAN-MRI INTERPRETATION (10/20/2023 12:00 AM CDT) Anatomical Region Laterality Modality Other Scanner OTHER * OCCULT BLOOD IFOBT STOOL (10/11/2023 7:48 AM CDT) STOOL BLOOD ,IFOBT Negative Negative 10/18/2023 10:41 AM CDT [facility] Stool STOOL SPECIMEN / Unknown Non-Blood / Unknown 10/11/2023 7:48 AM CDT 10/17/2023 7:48 AM CDT Serge Potter MD LABORATORY [facility] [address] [id number], * LAB TRACKING EVENT (10/03/2023 11:35 AM CDT) Other (Other) Client Collect / Unknown 10/03/2023 11:35 AM CDT 10/03/2023 10:03 PM CDT Carrie Banuelos MD LAB BILL ONLY Performing Organization Address City/[facility] Co de Phone Number [facility] [address] [place] [address], * PATH BREAST CORE BIOPSY (10/03/2023 11:35 AM CDT) Case Report Pathology Report ?Case: [id number] ? Authorizing Provider: ??Carrie Banuelos MD ?Collected: ? 10/03/2023 1135 ? Ordering Location: ? [facility] ?Received: ?10/04/2023 0826 ? Pathologist: ? Kelly Su, ? MD ? Specimen: ?Left Breast Core Ultrasound Biopsy ? 10/10/2023 3:44 PM CDT [facility] Amendment 10/09/2023 - Amendment issued to incorporate ancillary studies. 10/10/2023 - Amendment issued to incorporate ancillary studies. 10/10/2023 3:44 PM CDT [facility] Final Diagnosis A) LEFT BREAST, 3:00, 5 CM FROM NIPPLE, ULTRASOUND-GUIDED CORE BIOPSY: 1. 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 a. Cheswick grade: II of III; Petty score: 6 of 9 ?? b. Angio-lymphatic invasion: Absent ?? c. Associated LCIS: Absent 2. Breast Ancillary Testing: ?a. Hormone Receptors: ?Estrogen receptor: Positive (97%, strong staining) ?Progesterone receptor: Negative ?b. HER2 by IHC: Negative (1+ by manual morphometry) ?c. Ki-67: 16% 10/10/2023 3:44 PM CDT [facility] Amendment electronically signed by Antwan Naik MD on 10/10/2023 at 3:44 PM Amendment electronically signed by Linsey Babin MD on 10/09/2023 at 11:37 AM Comment A) The tumor is morphologically similar to the patient's previously treated left breast invasive lobular carcinoma (select slides from prior lumpectomy case [id number] were reviewed). This is an image-guided breast biopsy. The pathologic findings should be correlated with radiologic and clinical findings prior to treatment decisions. Case seen in consultation with Dr. Joya. 10/10/2023 3:44 PM CDT [facility] Clinical Information History of LEFT breast invasive lobular carcinoma, Cheswick grade II, ER positive, VA and HER2 negative at the 9:00 position, 3 cm from the nipple, status post lumpectomy in 2013 ([id number]). 11 x 8 x 8 mm, irregular, indistinct, solid and hypo- and hyperechoic LEFT breast mass at 3:00, 5 cm from the nipple. 10/10/2023 3:44 PM CDT [facility] Gross Description A) Label: Patient's [...] TLF 10/04/2023 ? 10/10/2023 3:44 PM CDT [facility] Microscopic Description The final diagnosis is based on microscopic examination of appropriate sections of all specimens. A) The presence of green ink is confirmed on tissue sections. 10/10/2023 3:44 PM CDT [facility] SYNOPTIC REPORTING Breast Biomarker Reporting Template BREAST [...] analyzed for Ki-67 10/10/2023 3:44 PM CDT [facility] Additional Information Interpreted at [facility] [employer], Central Laboratory - [address] [address] Immunohistochemist ry controls were reviewed and approved [...] in eligibility currently). 10/10/2023 3:44 PM CDT [facility] [employer] LABORATORY-C ENTRAL LABORATORY Other (Left Breast Core Ultrasound Biopsy) 10/03/2023 11:35 AM CDT 10/04/2023 8:26 AM CDT Carrie Banuelos MD PATHOLOGY/CYTOLOGY [facility] [address] [place] [id number], * SCAN-OPERATIVE/PROCEDURE REPORT (10/03/2023 12:00 AM CDT) [...] For Patients: ??As a result of the 21st Century Cures Act, medical imaging exams and [...] 5.9 <=6.4 % 09/28/2023 5:48 PM CDT [facility] Blood BLOOD SPECIMEN / Unknown Venipuncture / Unknown 09/28/2023 9:17 AM CDT 09/28/2023 9:17 AM CDT Narrative [facility] - 09/28/2023 5:48 PM CDT ? (<5.7%) ?Normal ? (5.7% to 6.4%) ? Indicates prediabetes ? (>=6.5%) ? Confirms diabetes Falsely low levels may be seen with: Recent Transfusion, Recent Significant Blood Loss, Hemolytic Diseases, or Falsely elevated levels may be seen with: Untreated Anemias, Splenectomy Serge Potter MD CHEMISTRY Performing Organization Address City/[facility]/ZIP Co de Phone Number [facility] [address] [place] [address], [place] * LIPID PANEL W REFLEX MEASURED LDL (09/28/2023 9:17 AM CDT) [facility] Signature CHOLESTEROL,TOTAL 178 100 - 199 mg/dL 09/28/2023 6:04 PM CDT [facility] Comment: Cholesterol, Total Reference Ranges Desirable <200 mg/dL Borderline 200-239 mg/dL High >=240 mg/dL TRIGLYCERIDES 115 <150 mg/dL 09/28/2023 6:04 PM CDT [facility] HDL CHOLESTEROL 56 >40 mg/dL 6:04 PM CDT [facility] NON-HDL CHOLESTEROL 122 <145 mg/dl 09/28/2023 6:04 PM CDT [facility] CHOL/HDL RATIO 3.18 <4.50 09/28/2023 6:04 PM CDT [facility] LDL CHOLESTEROL 99 <=130 mg/dL 09/28/2023 6:04 PM CDT [facility] VLDL CHOLESTEROL 23 <=30 mg/dL 09/28/2023 6:04 PM CDT [facility] TR[facility] PROVIDER ORDERED STATUS RANDOM 09/28/2023 6:04 PM CDT [facility] Blood BLOOD SPECIMEN / Unknown Venipuncture / Unknown 09/28/2023 9:17 AM CDT 09/28/2023 9:17 AM CDT Serge Potter MD CHEMISTRY Performing Organization Address City/[facility]/ZIP Co de Phone Number [facility] [address] [place] [address], [place] * HEPATIC FUNCTION PANEL (09/28/2023 9:17 AM CDT) Pathologist [facility] ALBUMIN 4.5 4.0 - 4.9 g/dL 09/28/2023 6:04 PM CDT [facility] PROTEIN,TOTAL 7.1 6.0 - 8.0 g/dL 09/28/2023 6:04 PM CDT [facility] BILIRUBIN,TOTAL 0.5 0.0 - 1.2 mg/dL 09/28/2023 6:04 PM CDT [facility] BILIRUBIN,DIRECT <0.2 0.0 - 0.3 mg/dL 09/28/2023 6:04 PM CDT [facility] BILIRUBIN,INDIRE CT 09/28/2023 6:04 PM CDT [facility] Comment:Unable to calculate, Direct Bili <0.2 ALK PHOSPHATASE 61 35 - 104 IU/L 09/28/2023 6:04 PM T [facility] ALT (SGPT) 22 10 - 35 IU/L 09/28/2023 6:04 PM T [facility] AST (SGOT) 26 10 - 35 IU/L 09/28/2023 6:04 PM T [facility] Blood BLOOD SPECIMEN / Unknown Venipuncture / Unknown 09/28/2023 9:17 AM CDT 09/28/2023 9:17 AM CDT Serge Potter MD CHEMISTRY [facility] [address] [place] [address], * (ABNORMAL) BASIC METABOLIC PANEL (09/28/2023 9:17 AM CDT) Pathologist [facility] SODIUM 143 136 - 145 mmol/L 09/28/2023 6:04 PM CDT [facility] POTASSIUM 4.8 3.5 - 5.1 mmol/L 09/28/2023 6:04 PM T [facility] CHLORIDE 103 98 - 107 mmol/L 09/28/2023 6:04 PM CDT [facility] CO2,TOTAL 31(H) 22 - 29 mmol/L 09/28/2023 6:04 PM CDT [facility] ANION GAP 9 5 - 18 09/28/2023 6:04 PM CDT [facility] GLUCOSE 103(H) 70 - 99 mg/dL 09/28/2023 6:04 PM CDT [facility] CALCIUM 10.2 8.8 - 10.2 mg/dL 09/28/2023 6:04 PM CDT [facility] BUN 17 8 - 23 mg/dL 09/28/2023 6:04 PM CDT [facility] CREATININE 0.85 0.50 - 0.90 mg/dL 09/28/2023 6:04 PM CDT [facility] BUN/CREAT RATIO 20 10 - 20 6:04 PM T [facility] eGFR 68(L) >90 mL/min/1.7 3m2 09/28/2023 6:04 PM CDT [facility] Comment:As of 2021, [...] 9:17 AM CDT Serge Potter MD CHEMISTRY [facility] [address] [place] [address], * SCAN-ULTRASOUND REPORT (09/22/2023 12:00 AM CDT) [...] 3:19 PM 09/06/2013 10:21 AM Care Teams Physically Impaired Teacher Relationship Specialty Start Date End Date Serge Potter MD [address] [place] [address] PCP - General Family Practice 08/24/17 Juan Oliveira MD Surgery - Orthopedics 08/14/12 Jose D Florence [place] [address] [place] [address] Balance Wheel Motion Inspector 08/14/12 Jimmie Hartman [employer] [place] [address] [place] [address] Hematology and Oncology 09/02/14
--- OUTSIDE RECORDS SUMMARY | 2023-11-02 06:07 | XMS_ITS | Encounter Summary ---
Author Organization [facility] Address [address], [place] [address] Care Team Providers Care Diesel Engine Operator Name Role Phone Herson Fournier MD Primary Care Provider [phone] Reason for Visit * Reason Comments Cold Symptoms Encounter Details Date Type Department Care Team (Late st Contact Info) Description 08/07/2023 3:20 PM CDT Office Visit [place] [address] [facility] [address] [place] [address] Agustin Pascual, LILA, ASSIGNMENT DESK ASSISTANT [address] [place], [place] [id number] Nasal congestion; Post-nasal drainage; Cough, unspecified type [...] Instructions * Patient Instructions* Agustin Pascual, LILA, ASSIGNMENT DESK ASSISTANT - 08/07/2023 3:20 PM CDT *You may use tgyv-wmh-llnqckc cough and cold medicine such as DayQuil and NyQuil or their generic equivalents. *For nasal congestion you may add and pseudoephedrine (short acting). *Often even if you do not have known allergies there may be a allergy component and try an owcj-aby-kkvhasc antihistamine such as Zyrtec, Prerna, Xyzal, or [...] concerns or complaints. Has been using some jslf-lry-jcjebjv medications with little relief. Review of Systems: [...] R05.9 PLAN: Patient Instructions *You may use hhqk-kkc-uusjqwh cough and cold medicine such as DayQuil and NyQuil or their generic equivalents. *For nasal congestion you may add and pseudoephedrine (short acting). *Often even if you do not have known allergies there may be a allergy component and try an wbjh-hci-dltxizx antihistamine such as Zyrtec, Prerna, Xyzal, or [...] 0 We discussed contagiousness. You may use qbhj-ing-khdijoy cough and cold medicine such as DayQuil and NyQuil or their generic equivalents. For nasal congestion you may add and pseudoephedrine (short acting). Often even if you do not have known allergies there may be a allergy component and try an ov hu-yzm-yddwhlm antihistamine such as Zyrtec, Prerna, Xyzal, or [...] type documented in this encounter Care Teams Diesel Engine Operator Relationship Specialty Start Date End Date Herson Fournier MD [address] [place] [address] PCP - General 07/05/10 documented as of this encounter
[2023-11-02] MEDS: LACTATED RINGERS 1000 ML 1,000 ML 100 ML IV ×2 (07:00→11:15)
[2023-11-02] MEDS: SODIUM CHLORIDE 0.9 % (FLUSH) 10 ML SYRINGE IVF (07:03)
--- NOTE | 2023-11-02 08:30 | CRLHL7_ITS ---
For Patients: As a result of the Century Cures Act, medical imaging exams and procedure reports are released immediately into your electronic medical record. You may view this report before your referring provider. If you have questions, please contact your health care provider. INDICATION: Invasive lobular carcinoma of the LEFT breast. Injection for sentinel lymph node scintigraphy. The on-site staff obtained informed consent. They discussed the risks and benefits of the procedure. The patient agreed to proceed. Utilizing sterile technique, as well as 1 cc of 1 percent xylocaine for local anesthetic, and 810 microcuries technetium filtered sulfur colloid was injected within an intradermal location superolateral to the left nipple areolar complex. The patient tolerated the injection well. No immediate complications. No subsequent imaging. IMPRESSION: Technically successful left breast injection for sentinel lymph node scintigraphy. Lefty Kapoor M.D. Diagnostic/Nuclear Medicine Radiologist [email or web address] Transcribed: 11:18 am DW/Dictated by: Lefty Kapoor MD @ 11/02/2023 9:49:00 AM (Electronically Signed)
--- NOTE | 2023-11-02 09:33 | P.GSOP_ITS ---
Operative Note Date of procedure: 11/02/23 Pre-op diagnosis: Left breast invasive lobular carcinoma, recurrent versus 2nd primary cancer Post-op diagnosis: Same Type of Procedure: 1. Left mastectomy 2. Left axillary sentinel node biopsy Indications: The patient is an 83-year-old female who was diagnosed with ER WI positive, HER2 negative left-sided invasive lobular carcinoma. She has a history of invasive lobular carcinoma of the left breast which was treated 10 years ago with lumpectomy, radiation and antiestrogen therapy. On her most recent mammogram she was found to have a new lesion on the opposite side of her breast. Biopsy showed that to be also invasive lobular carcinoma. There was no evidence of lymph node disease on exam or imaging. She had recent CT scan and labs which did not show metastatic disease. Because of tumor type and location, it was unclear as to whether not this was a new primary or recurrence. We discussed options for treatment and she agreed to proceed with mastectomy with repeat sentinel node biopsy if possible. Procedure Description: After discussion of risks and benefits, the patient was brought to the operating room and placed supine on the operating table. General anesthesia was induced. 1 hr to incision, radiotracer was injected into the dermis the left breast by the nuclear powerplant mechanic. 10 min prior to the incision I injected 3 ml isosulfan blue dye into the dermis above the areola. This was massaged for 3 min. Once this was completed, the area was prepped and draped sterilely. A time-out was then completed. On the left breast, I marked out an elliptical incision which would encompass her prior lumpectomy scar. The incision was then created using a skin knife. Subcutaneous flaps were created using cautery. Care was taken to stay in the a vascular plane between the breast tissue in the subcutaneous tissue. Dissection was taken superiorly to the clavicle, medially to the sternum, inferiorly to the inframammary fold, and laterally to the latissimus. The patient had scarring from her prior lumpectomy as well as radiation. The old tumor bed was excised down to muscle. Once the flaps were created, the breast was taken off of the chest wall, taking the pectoralis fascia and muscle under the area of the prior tumor bed. Small bleeding vessels were cauterized. Before removing the breast from the axillary fat, the Neoprobe was then brought into the field. There was a very weak signal in the axilla. The axillary fat was firm and scarred because of the prior sentinel node biopsy and the breast was tethered to this. I removed the breast from the axillary fat using cautery. This was marked with a stitch at the superior aspect and sent for margins which were grossly negative. I then placed the probe back into the axilla. There was minimal signal there. I then placed the probe on the very edge of the axillary tail, pointing away from the mass itself. There was a weak signal here. There was a small blue channel. I traced this down to discover a very small lymph node. This did have a weak signal ex vivo. I palpated an additional node. The probe was placed on this node, again pointed away from the breast itself and the signal was double the prior lymph node though still low. This was dissected out as well and had a stronger signal ex view. There was 1 more small, soft mass with a weak signal which was also removed. These were sent to pathology. They appeared to grossly be lymph nodes, however frozen section was performed and they were all indeed lymph nodes and were negative for invasive malignancy. In the meantime, the probe was placed back in the axilla. There was no further signal in the axilla. There were no further blue lymphatic channels. Once this was done, the wound was examined for hemostasis which appeared excellent. A 15 [place] chest wall drain was then placed and secured in place using a nylon suture. The wound was then closed with 3-0 Vicryl dermal and 4-0 Monocryl running subcuticular suture. A pressure dressing was then placed. ? The patient was then woken and transported to the recovery area in stable condition. ? The patient tolerated the procedure well. Findings: 1. Left breast margins grossly negative 2. Three sentinel lymph nodes found, frozen section performed and primary report shows they were negative. Anesthesia: GETA Surgeon: Rosa Gale MD Estimated blood loss (mL): 25 Additional Specimen Information: 1. Left breast 2. Left axillary sentinel nodes Condition: stable Disposition: PACU [place] Node Biopsy for Breast Cancer Operation Performed with Curative Intent: Yes Tracers used to Identify sentinel nodes in the upfront surgery (non-neoadjuvant) setting: Dye and Radioactive Tracer Tracers used to identify sentinel nodes in the neoadjuvant setting: N/A All nodes (colored or non-colored) present at the end of a dye filled lymphatic channel were removed: Yes All significantly radioactive nodes were removed: Yes All palpably suspicious nodes were removed: Yes Biopsy proven positive nodes marked with clips prior to chemotherapy were identified and removed: Not Applicable
--- NOTE | 2023-11-02 09:33 | W.PM.H&PU ---
History & Physical Update History & Physical Update H&P Reviewed and patient assessed: No changes noted
--- NOTE | 2023-11-02 09:46 | SUR.OPER ---
Dr. Gale looked at ring and spoke with patient's risks about leaving it on left finger during procedure. Dr. Gale said it was good to remain on finger during procedure and will observe it to ensure no swelling or burning.
[2023-11-02] MEDS: CEFAZOLIN 1 GM inj IVP (10:19)
[2023-11-02] MEDS: ISOSULFAN BLUE 5 ML VIAL INJECTION (10:27)
--- NOTE | 2023-11-02 10:31 | SUR.OPER ---
ring from left hand was removed in or prior to start of procedure. placed on patient chart.
--- NOTE | 2023-11-02 10:43 | W.PM.NB ---
Nerve Block Nerve Block Time Seen by Provider: 10:00 Date Seen: 11/02/23 Type of block requested by surgeon for post-operative analgesia: other periph nerve block (PECS) Side: left Time out performed: Yes Verification of patient name: Yes Verification of date of : Yes Site marking: site marked Name of person performing procedure: Bar Fischer Continuous monitoring Was continuous monitoring of O2 sat, B/P, caramel cutter hand, recorded every 15 minutes?: Yes Procedure Checklist: sterile prep, needles and gloves Ultrasound guided. Images saved: Yes Medications given in 5ml increments after negative aspiration: Marcaine %: 0.25 mL: 15 Needle gauge: 22 and Exparel mL: 10 Patient tolerated procedure well: Yes Block Charges Block Charge (with Pro Fee): Other Periph Nerve Block (PECS) Use of Ultrasound Machine for Block: Yes- US Guidance/pain block
--- NOTE | 2023-11-02 12:08 | W.ANESCHARGE ---
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
[2023-11-02] MEDS: HYDROmorphone 0.5 mg/0.5 ml inj IVP (13:43)
[2023-11-02] MEDS: LACTATED RINGERS 1000 ML 1,000 ML 125 ML IV (17:50)
[2023-11-02] MEDS: HYDROCODONE-ACETAMIN 5-325 MG 1 TAB PO (17:50)
--- NOTE | 2023-11-02 19:02 | PC.NURSE ---
shift note: post op vss stable. lt upper chest JUAN ALBERTO compressed and rickey wrap c/d/i. pt medicated with prn pain meds with relief.
[2023-11-02] MEDS: ATORVASTATIN 10 MG TABLET 20 MG PO (20:21)
[2023-11-02] MEDS: TRAZODONE HCL 50 MG TABLET PO (20:22)
[2023-11-03] MEDS: LACTATED RINGERS 1000 ML 1,000 ML 125 ML IV (01:08)
[2023-11-03] MEDS: HYDROCODONE-ACETAMIN 5-325 MG 1 TAB PO (02:43)
[2023-11-03 03:00] VITALS: BP 96/49; PULSE 85; RESP 16; TEMP 36.8; O2SAT 94
--- NOTE | 2023-11-03 05:00 | PC.NURSE ---
[id number] Pt pleasant and cooperative, slept well between cares. SBA to br, tolerating activity well. JUAN ALBERTO drain drainage with Sanguineous drainage decreasing in amount throughout shift. pain to surgical site, controlled with PO pain medications. bruising noted to upper arm by armpit. chest wrapped from surgery, no drainage noted to rickey wrap.
[2023-11-03] MEDS: ASPIRIN 81 MG TABLET EC PO (09:06)
[2023-11-03] MEDS: VENLAFAXINE HCL ER 37.5 MG CAPSULE PO (09:06)
--- NOTE | 2023-11-03 09:14 | PM.DS1 ---
DS: Providers Provider Date Seen: 11/03/23 Primary care physician: Serge Potter MD Admitting Clinician: Rosa Gale MD, FACS Attending Physician on discharge: Rosa Gale MD Date of Discharge: 11/03/23 DS: Diagnosis Discharge Diagnosis (1) Invasive lobular carcinoma of left breast in female: Status: Acute (2) S/P mastectomy: Status: Acute Problem details: left, November 2023 DS: Summary Hospital Course Hospital Course: The patient is an 83-year-old female who was found to have a invasive lobular carcinoma in her left breast, 10 years after being treated for invasive lobular carcinoma of the same breast a different quadrant. Mastectomy was recommended. She underwent left mastectomy with left axillary sentinel node biopsy on 11/02/2023. Postoperatively she was doing well. She was deemed safe her discharge on postop day 1, tolerating a diet, having good pain control on oral meds and after being instructed on how to care for her surgical incision and drain. Time Spent with Patient Time attestation: Total time spent providing and/or coordinating discharge services: Exam Narrative: Exam Narrative: General: No acute distress CV: Regular rate Respiratory: Breathing nonlabored on room air Chest: Left chest wall with ecchymosis noted. No swelling. No fullness. No erythema around incisions. Steri strips are clean and dry. Drain with 95 mL of serosanguineous output. Extremities: No swelling noted of left arm. Const: Vital Signs, click to edit/add: Vital Signs - 24 hr 11/02/23 12:01 11/02/23 12:05 11/02/23 12:10 Temperature 97.6 F Pulse Rate 78 77 74 Pulse Rate [Right Pulse Oximeter] Respiratory Rate 16 14 14 Blood Pressure 142/72 H 146/72 H 152/72 H Blood Pressure [Le ft Arm] Blood Pressure [Ri ght Arm] Pulse Oximetry 93 94 94 Oxygen Delivery Me thod Room Air 11/02/23 12:15 11/02/23 12:20 11/02/23 12:25 Temperature Pulse Rate 71 71 70 Pulse Rate [Right Pulse Oximeter] Respiratory Rate 16 14 16 Blood Pressure 150/70 H 136/76 149/68 H Blood Pressure [Le ft Arm] Blood Pressure [Ri ght Arm] Pulse Oximetry 94 93 92 Oxygen Delivery Me thod 11/02/23 12:30 11/02/23 12:40 11/02/23 12:40 Temperature 98.2 F 97 F L 97 F L Pulse Rate 69 73 Pulse Rate [Right Pulse Oximeter] Respiratory Rate 14 16 16 Blood Pressure 149/70 H 131/61 Blood Pressure [Le ft Arm] 131/61 Blood Pressure [Ri ght Arm] Pulse Oximetry 92 94 94 Oxygen Delivery Me thod Room Air Room Air 11/02/23 12:42 11/02/23 12:45 11/02/23 13:00 Temperature 97 F L 97 F L 97 F L Pulse Rate 73 74 74 Pulse Rate [Right Pulse Oximeter] Respiratory Rate 16 16 16 Blood Pressure 131/61 140/74 H 127/56 L Blood Pressure [Le ft Arm] Blood Pressure [Ri ght Arm] Pulse Oximetry 94 95 95 Oxygen Delivery Me od Room Air Room Air Room Air 11/02/23 13:15 11/02/23 13:30 11/02/23 14:00 Temperature 97.1 F L 97.2 F L 97.6 F Pulse Rate 74 76 85 Pulse Rate [Right Pulse Oximeter] Respiratory Rate 16 16 16 Blood Pressure 120/59 L 129/56 L 121/63 Blood Pressure [Le ft Arm] Blood Pressure [Ri ght Arm] Pulse Oximetry 95 95 93 [facility] Room Air 11/02/23 14:30 11/02/23 15:00 11/02/23 16:00 Temperature 97.6 F 97.5 F L 97.6 F Pulse Rate 88 90 70 Pulse Rate [Right Pulse Oximeter] Respiratory Rate 16 16 16 Blood Pressure 126/60 119/63 113/69 Blood Pressure [Le ft Arm] Blood Pressure [Ri ght Arm] Pulse Oximetry 94 95 93 Oxygen Delivery Me thod Room Air Room Air Room Air 11/02/23 16:34 11/02/23 17:00 11/02/23 18:15 Temperature 97.6 F 97.6 F 97.6 F Pulse Rate 72 78 Pulse Rate [Right Pulse Oximeter] Respiratory Rate 16 16 16 Blood Pressure 123/56 L 114/55 L Blood Pressure [Le ft Arm] 113/69 Blood Pressure [Ri ght Arm] Pulse Oximetry 93 93 93 Oxygen Delivery Me thod Room Air Room Air Room Air 11/02/23 19:00 11/02/23 21:55 11/02/23 21:57 Temperature 98.3 F Pulse Rate Pulse Rate [Right Pulse Oximeter] 90 Respiratory Rate 16 16 Blood Pressure Blood Pressure [Le ft Arm] Blood Pressure [Ri ght Arm] 105/46 L Pulse Oximetry 92 92 92 Oxygen Delivery Me thod Room Air Room Air Room Air 11/02/23 23:00 11/03/23 03:00 Temperature 97.8 F 98.3 F Pulse Rate Pulse Rate [Right Pulse Oximeter] 85 85 Respiratory Rate 16 16 Blood Pressure Blood Pressure [Le ft Arm] Blood Pressure [Ri ght Arm] 97/49 L 96/49 L Pulse Oximetry 92 94 Oxygen Delivery Me thod Room Air Room Air Discharge Plan Discharge Disposition: Home w/ Parent or Adult Discharging Surgeon: Rosa Gale Follow-Up Appointment: Make appt for Nov 13 at [facility] to overbook if needed Prescriptions: New hydrocodone-acetaminophen 5-325 mg Tablet 1 tab PO Q6H PRN (Reason: Pain) Qty: 10 0RF Continued atorvastatin 20 mg tablet 20 mg PO HS cholecalciferol (vitamin D3) 25 mcg (1,000 unit) tablet 1,000 unit PO DIRECTED vitamin E mixed 400 unit capsule 400 unit PO DAILY magnesium 250 mg tablet 250 mg PO DAILY multivitamin [Multiple Vitamins] Tablet 1 tab PO DAILY [place]-3 (with dpa) 1,050-1,200 mg capsule 1 cap PO QDAY venlafaxine 37.5 mg capsule,extended release 24hr 37.5 mg PO DAILY trazodone 50 mg tablet 50 mg PO HS glucosamine HCl 1,500 mg tablet 1,500 mg PO DAILY aspirin 81 mg tablet,delayed release (DR/EC) 81 mg PO DAILY calcium carbonate 600 mg calcium (1,500 mg) tablet 600 mg PO BID propranolol 20 mg tablet 20 mg PO BID Activity Level: Activity as Tolerated and No strenuous activity Activity Detail: Avoid raising left arm overhead for at least 2 weeks. No lifting more than 20 lb on the left side for 2 weeks Discharge Diet: Regular Patient Instructions: Deep Sedation (DC), Post-Operative Instructions: Breast Surgery Additional Instructions: Wound care: Your sutures are under the skin and will dissolve over time. Leave steri strips (white bandages) over incisions until they fall off (or remove after 7 days). Reapply Amandeep wrap daily after bathing. If you no longer have drainage from your incision, you do not need to place gauze over the incision before wrapping. OK to shower tomorrow but avoid bathing, soaking or swimming for 2 weeks. Pat the incisions dry. No need to wash or scrub the area. Covered drain site with Saran wrap to keep it dry. Apply ice to the area as needed for swelling. It is also OK to use a heating pad if this provides more comfort to you. Drain care: Change drain sponge daily. Empty and record drain output daily. Once your output is lower than 30 mL for 2 consecutive days, as long as it is at least 7 days from surgery, you can call the breast home care rn at [facility] who can help get to in for drain removal. Pain control: You were prescribed a pain medication. This medication contains acetaminophen (Tylenol). If you are taking your prescribed pain pills 4 times daily, do not take additional acetaminophen. As your pain improves, you can try taking acetaminophen instead of the prescribed pain pill. Take an pzmt-tmi-myduyil stool softener while you are taking prescribed pain medications to help alleviate constipation. I recommend Senna and/or Colace. Take as directed on package. If you have not had a bowel movement in 3 days, try taking Miralax as directed on the package. All of these are available over the counter. Follow-up Follow up with Dr. Gale at [facility] in 10 days Please call if you are experiencing severe pain, nausea, vomiting, difficulty urinating, fever or have not had bowel movement in 4 days after surgery. Follow-up: Serge Potter MD [Primary Care Provider] - Rosa Gale MD [Staff Physician] - Discharge Orders: Discharge Order (Routine); Ordered 11/03/23 Ordered By: Rosa Gale
[2023-11-03 09:51] VITALS: BP 115/50; PULSE 82; RESP 16; TEMP 36.7; O2SAT 96
[2023-11-03 09:52] VITALS: RESP 16; O2SAT 96
[2023-11-03 09:53] VITALS: PULSE 82; RESP 16
--- NOTE | 2023-11-03 10:43 | PC.NURSE ---
Discharge: Patient pleasant and cooperative, A&O. VSS, afebrile. Dressing on chest C/D/I. JUAN ALBERTO drain output was 10 ml this shift. JUAN ALBERTO drain instructions provided, all questions answered. Discharge instructions provided, all questions answered. IV removed with tip intact. Discharged to home with .
== END 2023-11-03 10:30 | disposition home or self-care (01) ==
LOC: OR 06:05 → MEDSURG 06:15
PROVIDERS: PCP Family Medicine; Visit Provider Surgery
PROC: (CPT 19307; principal; 2023-11-02 09:30)
PROC: (CPT 19307; 2023-11-02 09:30)
DX: C50.412 Malignant neoplasm of upper-outer quadrant of left female breast (principal); Z17.0 Estrogen receptor positive status [ER+]; G89.18 Other acute postprocedural pain; E78.5 Hyperlipidemia, unspecified; F33.9 Major depressive disorder, recurrent, unspecified; R73.03 Prediabetes
CPT/HCPCS: 19307; 01610; 38792; 64450; 76942; 88307; 99100; A9270; A9541; C9290; J0665; J0690; J1100; J1170; J1885; J2405; J2704; J2710; J3010; J3475; J3490; J7120

== ENCOUNTER 2023-11-09 06:40 | Day surgery (SDC) | payer MEDICARE, BC, SELFPAY ==
[2023-11-09] VITALS (7 sets, daily range): BP systolic 115–143; BP diastolic 61–75; PULSE 78–89; RESP 16; TEMP 36.1–36.3; O2SAT 94–98; BMI 25.0
--- OUTSIDE RECORDS SUMMARY | 2023-11-09 06:42 | XMS_ITS | Encounter Summary ---
Author Organization [facility] Address [address], [place] [address] Care Team Providers Care Head Baggage Porter Name Role Phone Herson Fournier MD Primary Care Provider [phone] Reason for Visit * Reason Comments Cold Symptoms Encounter Details Date Type Department Care Team (Late st Contact Info) Description 08/07/2023 3:20 PM CDT Office Visit [id number] [address] [place] [address] Agustin Pascual, LILA, LIQUID YEAST SUPERVISOR [address], [place] [id number] Nasal congestion; Post-nasal drainage; Cough, unspecified type [...] Instructions * Patient Instructions* Agustin Pascual, LILA, LIQUID YEAST SUPERVISOR - 08/07/2023 3:20 PM CDT *You may use suys-cup-sjrtpmz cough and cold medicine such as DayQuil and NyQuil or their generic equivalents. *For nasal congestion you may add and pseudoephedrine (short acting). *Often even if you do not have known allergies there may be a allergy component and try an yjbv-ytj-eseggdb antihistamine such as Zyrtec, Prerna, Xyzal, or [...] concerns or complaints. Has been using some ubbe-wow-wcsfgms medications with little relief. Review of Systems: [...] R05.9 PLAN: Patient Instructions *You may use ogip-mgi-jafzbdf cough and cold medicine such as DayQuil and NyQuil or their generic equivalents. *For nasal congestion you may add and pseudoephedrine (short acting). *Often even if you do not have known allergies there may be a allergy component and try an ziki-fre-cumpgmf antihistamine such as Zyrtec, Prerna, Xyzal, or [...] 0 We discussed contagiousness. You may use jexw-xtv-iydgxxc cough and cold medicine such as DayQuil and NyQuil or their generic equivalents. For nasal congestion you may add and pseudoephedrine (short acting). Often even if you do not have known allergies there may be a allergy component and try an ov st-nou-lxvqnjq antihistamine such as Zyrtec, Prerna, Xyzal, or [...] type documented in this encounter Care Teams Head Baggage Porter Relationship Specialty Start Date End Date Herson Fournier MD [address] [place] [address] PCP - General 07/05/10 documented as of this encounter
--- OUTSIDE RECORDS SUMMARY | 2023-11-09 06:42 | XMS_ITS | Clinical Summary ---
Author Organization [facility] Address [address], [place] [address] Care Team Providers Care Case Resource Manager Name Role Phone Herson Fournier MD Primary Care Provider [phone] Source Comments You are receiving this document as you are listed as the primary care provider,follow-up provider, or the patient has been referred to you for consultation.This is in compliance with the Medicare and[employer] EHR Incentive Program,which states Providers who transition their patient to another setting of careor provider of care or refers their patient to another provider of care shouldprovide summary care record for each transition of care or referral. [facility] Allergies No known active allergies Medications Medication [...] Active Active Problems No known active problems Social History Tobacco Use Types Packs/Day Years [...] - Tdap) 12/30/2020 12/30/2010, 03/07 COVID-19 Vaccine (2022- season) 2022 12/24/2021, 01/02/2021 Influenza (#1) 2023 [...] age to complete this topic Care Teams Case Resource Manager Relationship Specialty Start Date End Date Herson Fournier MD [address] [place], [place] [id number] PCP - General 07/05/10
--- OUTSIDE RECORDS SUMMARY | 2023-11-09 06:42 | XMS_ITS | Clinical Summary ---
Author Organization [facility] Address [place], [place] [address] Care Team Providers Care Hotel Services Sales Representative Name Role Phone Juan Oliveira MD Unavailable Unavail able Ludivina Jose D M Unavailable [phone] Jimmie Hartman Unavailable Unavailable Serge Potter [...] Petty score 6 of 9 ER positive, AL negative. 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 09/05/2013 [facility] current use of anticoagulant 11/19/2012 12/14/2012 Stomach pain 01/18/2008 01/19/2009 Mixed hearing loss, unilateral 11/12/2007 08/21/2014 Osteoarthrosis, unspecified whether generalized or localized, unspecified site 01/16/2007 09/28/2023 Encounters Date Type Department Care Team Description 11/07/2023 Telephone [facility] [address] [place] [address] Rosa Gale MD 11/02/2023 9:00 AM CDT Office Visit [facility] at [facility] [address] [place] [address] Rosa Gale MD 11/02/2023 Lab Requisition [facility] [phone] Rosa Gale MD 11/02/2023 Lab Requisition [facility] [phone] Rosa Gale MD 11/02/2023 Orders Only [facility] Scanner 1 scan: (1-Ord) [place], LEFT MASTECTOMY, LEFT AXILLARY SENTINEL NODE BIOPSY, 11/02/2023 11/02/2023 Orders Only [facility] [address] [place] [address] Rosa Gale MD 1 scan: (1-Ord) [place] SENTINEL NODE INJECT LEFT BREAST, 11/02/2023 10/27/2023 11:45 AM CDT Office Visit [facility] [address] [facility] [place] [address] Serge Potter MD Preoperative Exam (DOS: 11/02/2023, left mastectomy, Dr. Gale, [facility]) 10/27/2023 Travel 10/20/2023 Orders Only [facility] Scanner 1 scan: (1-Ord) [facility] BI WITHOUT AND WITH CONTRAST, 10/20/2023 10/11/2023 7:00 AM CDT Orders Only [facility] [address] [address] Lab 10/10/2023 3:15 PM CDT Office Visit [facility] [address] [place] [address] Rosa Gale MD Consult (Left breast cancer) 10/10/2023 Travel 10/03/2023 Orders Only [facility] Scanner 1 scan: (1-Ord) [facility], US GUIDED BREAST BIOPSY LT , 10/03/2023 10/03/2023 Orders Only [facility] Scanner 1 scan: (1-Ord) [place], MM CLIP PLACEMENT LT, 10/03/2023 10/03/2023 Lab Requisition [facility] [phone] Carrie Banuelos MD 09/28/2023 9:30 AM CDT Ancillary Procedure [facility] [address] [place] [address] 09/28/2023 8:30 AM CDT Office Visit [facility] [address] [facility] [place] [address] Serge Potter MD Medicare ANNUAL (subsequent) Visit (83 year old); Knee Pain/problem (Left knee pain, gives out once in awhile) 09/28/2023 Telephone [facility] [address] [facility] [place] [address] Serge Potter MD Referral (Audiological Evaluation) 09/28/2023 Travel 09/22/2023 Orders Only [facility] Scanner 1 scan: (1-Ord) [facility], US BREAST LT LIMITED, 09/22/2023 09/22/2023 Orders Only [facility] Scanner 1 scan: (1-Ord) [facility] DI[facility]NOST[facility] DIGITAL MAMM W/COMPUTER AIDED DETECTION andTOMO, 09/22/2023 09/14/2023 Orders Only [facility] Scanner 1 scan: (1-Ord) [facility], SCREENING MAMMO BI, 09/14/2023 08/29/2023 3:45 PM CDT Ancillary Procedure [facility] [address] [facility] [place] [address] 08/29/2023 3:15 PM CDT Office Visit [facility] [address] [facility] [place] [facility] [place] [address] Levon Medina MD Cough (Started 4 weeks [...] uti ) 08/29/2023 Travel 08/19/2023 Orders Only [facility] Scanner 1 scan: (1-Ord) [facility], ABD PELVIS W/CON, 08/19/2023 08/09/2023 11:20 AM CDT Office Visit [facility] [address] [place] [address] Serge Potter MD Sinus Problem (Runny nose, congestion); Cough (Productive cough) from Last 3 Months Immunizations Name Administration [...] Care Team (Late st Contact Info) Description 11/09/2023 9:00 AM CDT Office Visit [facility] at [facility] [address] [place] [address] Rosa Gale MD [address] [place] [address] 11/14/2023 2:15 PM CDT Office Visit [facility] [address] [place] [address] Rosa Gale MD [address] [place] [address] 11/30/2023 2:00 PM CDT Office Visit [facility] [address] [place] [address] Arvind Burkett AuD [address] [place] [address] Health Maintenance Due Date Last Done Comments [...] Procedure Name Priority Date/Time Associated Diagnosis Comments PATH BREAST CORE BIOPSY Routine 11/02/2023 11:25 AM CDT LAB TRACKING EVENT Routine 11/02/2023 11 :07 AM CDT NM INJ SENTINEL NODE BREAST LEFT AMA 11/02/2023 12:00 AM CDT Invasive lobular carcinoma of left breast in female (HC) SCAN-OPERATIVE/PROCEDU RE REPORT 11/02/2023 12:00 AM CDT SCAN-MRI INTERPRETATION 10/20/2023 12:00 AM CDT OCCULT [...] Recently Relevant to Health Maintenance Results * PATH BREAST CORE BIOPSY (11/02/2023 11:25 AM CDT) Only the most recent of2 resultswithin the time period is included. Case Report Pathology Report ?Case: [id number] ? Authorizing Provider: ??Rosa Gale MD ??Collected: ? 11/02/2023 1125 ? Ordering Location: ? [facility] ?Received: ?11/03/2023 0715 ? Pathologist: ? Yolanda Hardy MD ? Specimens: ?? A) - Left Breast Mastectomy ? B) - Left Axillary Premont Lymph Node 1 ? 11/06/2023 3:19 PM CDT [facility] Final Diagnosis A) LEFT BREAST, MASTECTOMY: 1. Invasive lobular carcinoma, Petty grade II of III ?a. Size: 14 mm ?b. Core biopsy site is associated with tumor 2. Margins: ?a. Invasive carcinoma is present at the anterior-inferior margin (3 foci, greatest span 1.5 mm) 3. Breast Ancillary Testing: Performed on prior case ([id number]) ?a. Hormone Receptors: ?Estrogen receptor: Positive (97%, strong staining) ?Progesterone receptor: Negative ?b. HER2 by IHC: Negative (1+ by manual morphometry) ?c. Ki67: 16% 4. Dense fibrosis consistent with prior lumpectomy site 5. Benign nipple B) LEFT AXILLARY SENTINEL LYMPH NODE, 1, BIOPSY: 1. Negative for malignancy in 3 lymph nodes (0/3) 11/06/2023 3:19 PM CDT [facility] Clinical Information [id number] Left breast ILC, gr II 3:00 5 cm fn, 11 mm by imaging; history of ILC left breast 9:00, 3 cm fn, post lumpectomy in 2013 ([id number]) Per [facility] surgeon consult previous ILC ER positive, AL and HER2 negative; 55 mm, sentinel lymph node biopsy benign. 11/06/2023 3:19 PM CDT [facility] Gross Description A) Received fresh, labeled with the patient's name and left breast, stitch superior, is a 515.2 gram, 18.5 (M-L) x 19.0 (S-I) x 4.5 (A-P) cm oriented left simple breast mastectomy specimen without attached axillary contents. There is an attached 17 x 6.5 cm portion of skin with a 1.1 cm everted nipple and 3 cm surrounding areola. No skin scars or lesions are identified. The specimen is inked: Anterior-superior: Blue Anterior-inferior: Red Posterior: Black Sectioning reveals a 1.4 (ML) x 1.2 (AP) x 0.8 (SI) cm anne-white, firm, ill-defined mass at approximately 3:00, 5 cm from nipple. ??Centrally within the mass is a Q shaped biopsy clip. ??The mass abuts the anterior-inferior margin, is 5.0 cm from the posterior margin, and 6.2 cm from the anterior-superior margin. ??Surrounding the mass is a moderate amount of pale yellow, indurated fat necrosis. Separate from the 3:00 mass is a 1.4 (ML) x 1.2 (AP) x 1.2 (SI) cm anne-yellow, firm, calcified nodule with surrounding fibrous tissue, possibly representing a previous lumpectomy site, at approximately 3:00, 3 cm from nipple. ??The nodule is 1.5 cm from anterior-superior margin, 2.4 cm from the posterior margin, and 2.5 cm from the anterior-inferior margin. ??The calcified nodule is 5.5 cm from the 3:00 mass. The remaining cut surfaces consist of 90% yellow, lobulated adipose tissue and 10% fibrous tissue. No lymph nodes are identified grossly. Hemmer Lockstitch sections are submitted: 1. ??Nipple and nipple bed 2-6. ??Mass, entirely submitted from lateral to medial, including anterior-inferior margin, spanning 1.4 cm (cassette 3 including biopsy clip site) 7. ??Tissue lateral to mass, including fat necrosis and anterior-inferior margin 8. ??Tissue medial to mass, including fat necrosis and anterior-inferior margin 9-11. ??Calcified nodule with surrounding fibrous tissue, representatively submitted from lateral to medial, spanning 1.4 cm (cassette 11 including anterior-superior margin) 12. ??Tissue lateral to calcified nodule with surrounding fibrous tissue 13. ??Tissue medial to calcified nodule with surrounding fibrous tissue 14. ??Tissue in between mass and calcified nodule 15. ??Posterior and anterior-superior margins nearest mass, perpendicular 16. ??Posterior and anterior-inferior margins nearest calcified nodule with surrounding fibrous tissue, perpendicular 17. ??Upper inner quadrant 18. ??Lower inner quadrant 19. ??Lower outer quadrant 20. ??Upper outer quadrant Time removed from patient: 1107 Time placed in formalin: 1125 Date removed and placed in formalin: 11/02/2023 Cold ischemic time < 60 minutes. The specimen was fixed in formalin for a minimum of 6 hours and not longer than 72 hours. B) Received fresh labeled with the patient's name and left axillary sentinel lymph nodes, are 3 fragments of yellow adipose tissue with 3 possible lymph nodes ranging from 0.5 to 1.1 cm. ??A previous biopsy clip is not present. ??The 2 larger possible lymph nodes are bisected and the specimen is entirely submitted on 3 chucks for frozen analysis. ??The frozen section remnants are subsequently submitted in 3 cassettes. Time removed from patient: 1118 Time placed in formalin: 1150 Date removed and placed in formalin: 11/02/2023 Cold ischemic time < 60 minutes. The specimen was fixed in formalin for a minimum of 6 hours and not longer than 72 hours. LAURA 11/03/2023 11/06/2023 3:19 PM CDT [facility] Intraoperative Consultation A) LEFT BREAST, MASTECTOMY, INTRAOPERATIVE CONSULTATION (Gross Evaluation Only): 1. Tumor grossly identified 2. Biopsy site change is identified grossly 3. Margins are grossly negative by 15 mm (the closest margin is anterior-superior) 4. The mastectomy specimen is 515.2 grams Clinton Fischer, 11/02/2023 11:20 AM B) LYMPH NODE, LEFT AXILLARY SENTINEL, BIOPSY, INTRAOPERATIVE CONSULTATION WITH FROZEN SECTION: [Number of frozen sections prepared: 3] 1. 3 lymph nodes are identified and are negative for malignancy Clinton Fischer, 11/02/2023 11:45 AM ??Intraoperative consultation, which may have included frozen section preparation, gross specimen examination, and/or cytology touch imprints/smears, was performed by a pathologist during the surgical procedure. ??This testing was performed at: [address] [address] 11/06/2023 3:19 PM [facility] Microscopic Description The final diagnosis is based on microscopic examination of appropriate sections of all specimens. 11/06/2023 3:19 PM [facility] SYNOPTIC REPORTING INVASIVE CARCINOMA OF THE BREAST: Resection INVASIVE CARCINOMA OF THE BREAST: RESECTION - All Specimens 8th Edition - Protocol posted: 03/15/2023 SPECIMEN ?? Procedure: ?Total mastectomy ?? Specimen Laterality: ?Left TUMOR ?? Tumor Site: ?Clock position ?? : ?3 o'clock Tumor Site: ?Distance from nipple (Centimeters): 5 cm Histologic Type: ?Invasive lobular carcinoma Histologic Grade (Petty Histologic Score): ? Glandular (Acinar) / Tubular Differentiation: ?Score 3 ?? Nuclear Pleomorphism: ?Score 2 ?? Mitotic Rate: ?Score 1 ?? Overall Grade: ?Grade 2 (scores of 6 or 7) Tumor Size: ?Greatest dimension of largest invasive focus (Millimeters): 14 mm Tumor Focality: ?Single focus of invasive carcinoma Ductal Carcinoma In Situ (DCIS): ?Not identified Lobular Carcinoma In Situ (LCIS): ?Not identified Lymphatic and / or Vascular Invasion: ?Not identified Dermal Lymphatic and / or Vascular Invasion: ?Not identified Microcalcification s: ?Present in non-neoplastic tissue Treatment Effect in the Breast: ?No known presurgical therapy MARGINS Margin Status for Invasive Carcinoma: ?Invasive carcinoma present at margin ?? Margin(s) Involved by Invasive Carcinoma: ?anterior inferior, multifocal REGIONAL LYMPH NODES Regional Lymph Node Status: ? : ?All regional lymph nodes negative for tumor ?? Total Number of Lymph Nodes Examined (sentinel and non-sentinel): ?3 ?? Number of Premont Nodes Examined: ?3 pTNM CLASSIFICATION (AJCC 8th Edition) ?? Reporting of pT, pN, and (when applicable) pM categories is based on information available to the pathologist at the time the report is issued. As per the AJCC (Chapter 1, 8th Ed.) it is the managing physician? s responsibility to establish the final pathologic stage based upon all pertinent information, including but potentially not limited to this pathology report. pT Category: ?pT1c pN Category: ?pN0 N Suffix: ?(sn) Comment(s): ?Block for possible future ancillary testing: A3, biopsy site present; defer to core [id number] if indicated 11/06/2023 3:19 PM CDT [facility] Additional Information Interpreted at [facility] - [address] [facility] [address], [place] [address] 11/06/2023 3:19 PM CDT [facility] Other (Left Breast Mastectomy) 11/02/2023 11:25 AM CDT 11/03/2023 7:15 AM CDT Specimen (specimen) (Left Axillary Premont Lymph Node 1) 11/02/2023 11:25 AM CDT 11/03/2023 7:15 AM CDT Rosa Gale MD PATHOLOGY/CYTOLO GY [facility] [address] [place] [address], * LAB TRACKING EVENT (11/02/2023 11:07 AM CDT) Only the most recent of2 resultswithin the time period is included. Other (Other) Client Collect / Unknown 11/02/2023 11:07 AM CDT 11/02/2023 10:12 PM CDT Rosa Gale MD LAB BILL ONLY Performing Organization Address City/[facility]/ZIP Co de Phone Number [facility] [address] [place] [address], [place] * [place] INJ SENTINEL NODE BREAST LEFT (11/02/2023 12:00 AM CDT) Anatomical Region Laterality Modality Breast Left Other Rosa Gale MD [place] * SCAN-OPERATIVE/PROCEDURE REPORT (11/02/2023 12:00 AM CDT) Scanner OTHER * SCAN-MRI INTERPRETATION (10/20/2023 12:00 AM CDT) Anatomical Region Laterality Modality Other Scanner OTHER * OCCULT BLOOD IFOBT STOOL (10/11/2023 7:48 AM CDT) STOOL BLOOD ,IFOBT Negative Negative 10/18/2023 10:41 AM CDT [facility] Stool STOOL SPECIMEN / Unknown Non-Blood / Unknown 10/11/2023 7:48 AM CDT 10/17/2023 7:48 AM CDT Serge Potter MD LABORATORY Performing Organization Address [facility] Co de Phone Number [facility] [address] [place] [address], [place] [phone] * SCAN-OPERATIVE/PROCEDURE REPORT (10/03/2023 12:00 AM CDT) [...] 5.9 <=6.4 % 09/28/2023 5:[address] [facility] Blood BLOOD SPECIMEN / Unknown Venipuncture / Unknown 09/28/2023 9:17 AM CDT 09/28/2023 9:17 AM CDT Narrative [facility] - 09/28/2023 5:48 PM CDT ? (<5.7%) ?Normal ? (5.7% to 6.4%) ? Indicates prediabetes ? (>=6.5%) ? Confirms diabetes Falsely low levels may be seen with: Recent Transfusion, Recent Significant Blood Loss, Hemolytic Diseases, or Falsely elevated levels may be seen with: Untreated Anemias, Splenectomy Serge Potter MD CHEMISTRY [facility] [address] [place] [address], * LIPID PANEL W REFLEX MEASURED LDL (09/28/2023 9:17 AM CDT) CHOLESTEROL,TOTAL 178 100 - 199 mg/dL 09/28/2023 6:04 PM [facility] Comment: Cholesterol, Total Reference Ranges Desirable <200 mg/dL Borderline 200-239 mg/dL High >=240 mg/dL TRIGLYCERIDES 115 <150 mg/dL 09/28/2023 6:04 PM T [facility] HDL CHOLESTEROL 56 >40 mg/dL 6:04 PM CDT [facility] NON-HDL CHOLESTEROL 122 <145 mg/dl 09/28/2023 6:04 PM [facility] CHOL/HDL RATIO 3.18 <4.50 09/28/2023 6:04 PM T [facility] LDL CHOLESTEROL 99 <=130 mg/dL 09/28/2023 6:04 PM [facility] VLDL CHOLESTEROL 23 <=30 mg/dL 09/28/2023 6:04 PM CDT [facility] PROVIDER ORDERED STATUS RANDOM 09/28/2023 6:04 PM CDT [facility] Blood BLOOD SPECIMEN / Unknown Venipuncture / Unknown 09/28/2023 9:17 AM CDT 09/28/2023 9:17 AM CDT Serge Potter MD CHEMISTRY [facility] [address] [place] [address], * HEPATIC FUNCTION PANEL (09/28/2023 9:17 AM CDT) ALBUMIN 4.5 4.0 - 4.9 g/dL 09/28/2023 6:04 PM CDT [facility] PROTEIN,TOTAL 7.1 6.0 - 8.0 g/dL 09/28/2023 6:04 PM CDT [facility] BILIRUBIN,TOTAL 0.5 0.0 - 1.2 mg/dL 09/28/2023 6:04 PM CDT [facility] BILIRUBIN,DIRECT <0.2 0.0 - 0.3 mg/dL 09/28/2023 6:04 PM CDT [facility] BILIRUBIN,INDIRE CT 09/28/2023 6:04 PM CDT [facility] Comment:Unable to calculate, Direct Bili <0.2 ALK PHOSPHATASE 61 35 - 104 IU/L 09/28/2023 6:04 PM CDT [facility] ALT (SGPT) 22 10 - 35 IU/L 09/28/2023 6:04 PM CDT [facility] AST (SGOT) 26 10 - 35 IU/L 09/28/2023 6:04 PM CDT [facility] Blood BLOOD SPECIMEN / Unknown Venipuncture / Unknown 09/28/2023 9:17 AM CDT 09/28/2023 9:17 AM CDT Serge Potter MD CHEMISTRY [facility] [address] [place] [address], * (ABNORMAL) BASIC METABOLIC PANEL (09/28/2023 9:17 AM CDT) SODIUM 143 136 - 145 mmol/L 09/28/2023 6:04 PM T [facility] POTASSIUM 4.8 3.5 - 5.1 mmol/L 09/28/2023 6:04 PM T [facility] CHLORIDE 103 98 - 107 mmol/L 09/28/2023 6:04 PM T [facility] CO2,TOTAL 31(H) 22 - 29 mmol/L 09/28/2023 6:04 PM T [facility] ANION GAP 9 5 - 18 09/28/2023 6:04 PM [facility] GLUCOSE 103(H) 70 - 99 mg/dL 09/28/2023 6:04 PM T [facility] CALCIUM 10.2 8.8 - 10.2 mg/dL 09/28/2023 6:04 PM [facility] BUN 17 8 - 23 mg/dL 09/28/2023 6:04 PM [facility] CREATININE 0.85 0.50 - 0.90 mg/dL 09/28/2023 6:04 PM [facility] BUN/CREAT RATIO 20 10 - 20 6:04 PM [facility] eGFR 68(L) >90 mL/min/1.7 3m2 09/28/2023 6:04 PM [facility] Comment:As of 2021, [...] 9:17 AM CDT Serge Potter MD CHEMISTRY [facility] [address] [place] [address], [place] * SCAN-ULTRASOUND REPORT (09/22/2023 12:00 AM [...] 3:19 PM 09/06/2013 10:21 AM Care Teams Hotel Services Sales Representative Relationship Specialty Start Date End Date Serge Potter MD [address] [place] [address] PCP - General Family Practice 08/24/17 Juan Oliveira MD Surgery - Orthopedics 08/14/12 Jose D [facility] [address] [place] [address] Aircraft Lay Out Worker 08/14/12 Jimmie Hartman [facility] [address] [place] [address] Hematology and Oncology 09/02/14
[2023-11-09] MEDS: LACTATED RINGERS 1000 ML 1,000 ML 100 ML IV (06:50)
[2023-11-09] MEDS: SODIUM CHLORIDE 0.9 % (FLUSH) 10 ML SYRINGE IVF (07:39)
--- NOTE | 2023-11-09 08:04 | W.PM.H&PU ---
History & Physical Update History & Physical Update H&P Reviewed and patient assessed: No changes noted
--- NOTE | 2023-11-09 08:04 | PM.GSPRC ---
Operative Note Date of procedure: 11/09/23 Pre-op diagnosis: Recurrent left breast invasive lobular carcinoma, status post mastectomy with positive anteroinferior margin. Post-op diagnosis: Same Type of Procedure: Re-excision left breast mastectomy anteroinferior margin Indications: The patient is an 83-year-old female who has a history of left breast cancer which was treated 10 years ago. Unfortunately she was found to have a mass on the opposite side of her breast on mammogram in the approximately 3 o'clock position. This was shown to be invasive lobular carcinoma. She underwent mastectomy on 11/02/2023. Intraoperatively margins appeared negative, however on final path, the anterior/inferior margin was found to be positive. I recommended margin re-excision and the patient agreed to proceed. Procedure Description: After discussing the risks and benefits of the procedure, the patient signed informed consent.? The operative site was marked and the patient was brought to the operating room and placed on the operating table in supine position.? Care was taken to pad the patient's pressure points.?? The patient was then given sedation by anesthesia.?? The operative site was then prepped and draped in the usual sterile fashion.? A time-out was then performed. The intended area of excision was mapped out. The the approximate area of the tumor along the inferior skin flap was known from the prior surgery; however using the patient's MRI, the midline and the inframammary fold, an area was triangulated to confirm. After injecting local anesthetic into the skin around and inferior to the prior mastectomy incision, a knife was used to incise the sutures at the midportion of the wound. I marked out a 3 cm area on the skin along the incision, encompassing the planned area of excision. A V was drawn on the skin along the inferior incision and flap. Prior to making incision, I ensured that the planned skin edges would come together in a T-shape without tension. The inferior flap had plenty of laxity and the edges did come together easily. Using a knife, I then excised the skin and subcutaneous tissue, removing a wedge of the inferior flap. I then elected to remove an additional 1 cm swath of subcutaneous tissue around the wedge under the remaining skin edge. This was taken down to the inframammary fold. This was attached, keeping correct orientation, to the skin wedge in its correct anatomical position. It was then inked for orientation. Hemostasis appeared excellent. The patient's wound was examined. The skin flaps were very adherent to the chest wall. The drain was pulled from the incision. It was noted to be intact. It was cut, shortening it and placing it just under the area that had been excised. To close the incision, I removed a few centimeters of suture along the original incision. I used 2-0 vicryl to pull the V together at the inferior aspect of the incision. This came together without significant tension. I then used 3-0 Vicryl dermal stitches to close larger transverse incision. Once this was done, both the transverse and vertical incisions were closed with 4-0 Monocryl in a running subcuticular fashion. Two additional 4-0 Monocryl interrupted sutures were used to reinforce the superior aspect of the T incision. The skin flaps appeared to have no evidence of ischemia at the end of the case. Sterile dressings were then applied. ? The patient was then woken and transported to the recovery area in stable condition. ? The patient tolerated the procedure well. Findings: Re-excision of skin margin and subcutaneous tissue at the approximate site of the prior tumor and positive margin. Anesthesia: MAC Surgeon: Rosa Gale MD Estimated blood loss (mL): 5 Additional Specimen Information: Left mastectomy anteroinferior margin re-excision Condition: stable Disposition: same day
--- NOTE | 2023-11-09 08:12 | W.ANESCHARGE ---
Anesthesia Charges Start Date/Time Anesthesia Start Date: 11/09/23 Anesthesia Start Time: 08:03 Stop Date/Time Anesthesia Stop Date: 11/09/23 Anesthesia Stop Time: 09:19 Summary Extremes of Age - Over 70 or under 1: MDA
[2023-11-09] MEDS: CEFAZOLIN 1 GM inj IVP (08:15)
--- NOTE | 2023-11-09 08:25 | W.ANESCHARGE ---
Anesthesia Charges Start Date/Time Anesthesia Start Date: 11/09/23 Anesthesia Start Time: 08:03 Stop Date/Time Anesthesia Stop Date: 11/09/23 Anesthesia Stop Time: 09:19 Summary Extremes of Age - Over 70 or under 1: [employer]
[2023-11-09] MEDS: LIDOCAINE 1% MDV 20 ML INJECTION (08:30)
[2023-11-09] MEDS: BUPIVACAINE 0.25% 30 ML INJECTION (08:30)
[2023-11-09] MEDS: ACETAMINOPHEN 325 MG TABLET 650 MG PO (09:39)
== END 2023-11-09 11:14 | disposition home or self-care (01) ==
PROVIDERS: PCP Family Medicine; Visit Provider Surgery
PROC: (CPT 19301; principal; 2023-11-09 08:00)
DX: C50.812 Malignant neoplasm of overlapping sites of left female breast (principal); Z85.3 Personal history of malignant neoplasm of breast
CPT/HCPCS: 19301; 00400; 88307; 99100; A9270; J0665; J0690; J1100; J2250; J2405; J2704; J3010; J7120

== ENCOUNTER 2023-11-30 12:47 | Outpatient (CLI) | payer MEDICARE, BC, SELFPAY ==
--- OUTSIDE RECORDS SUMMARY | 2023-11-30 12:54 | XMS_ITS | Clinical Summary ---
Author Organization [employer] Address [place], [place] [address] Care Team Providers Care Vice President Global Digital Marketing Name Role Phone Juan Oliveira MD Unavailable Unavail able Jose D Florence Unavailable [phone] Jimmie Hartman Unavailable Unavailable Serge Potter MD [...] 0 09/05/2016 Active benzonatate (TESSALON) 100 mg capsuleIndications:Cou gh, unspecified type Take 1 Capsule (100 mg) by mouth 3 times daily if needed for Cough. 21 Capsule 08/29/2023 Active propranoloL (INDERAL) 20 mg tabletIndications:Trem or Take 1 Tablet (20 mg) by mouth two times daily. 180 Tablet 3 09/28/2023 Active atorvastatin (LIPITOR) 20 mg tabletIndications:Hype rlipidemia, unspecified hyperlipidemia type TAKE 1 TABLET DAILY WITH THE EVENING MEAL 90 Tablet 3 09/28/2023 Active traZODone (DESYREL) 50 mg tabletIndications:Epis ode [...] a meal. 90 Capsule 3 09/28/2023 Active Active Problems Problem Noted Date Diagnosed [...] Petty score 6 of 9 ER positive, OK negative. 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 11/19/2012 12/14/2012 Stomach pain 01/18/2008 01/19/2009 Mixed hearing loss, unilateral 11/12/2007 08/21/2014 Osteoarthrosis, unspecified whether generalized or localized, unspecified site 01/16/2007 09/28/2023 Encounters Date Type Department Care Team Description 11/24/2023 Telephone [facility] [address] [place] [address] Awa Freed Cancer Genetics 11/21/2023 1:45 PM CDT Office Visit [facility] [address] [place] [address] Rosa Gale MD Post-op (Follow up left mastecetomy) 11/21/2023 Travel 11/16/2023 Transcribe Orders [facility] [address] [place] [address] Carrie Banuelos MD 11/14/2023 2:15 PM CDT Office Visit [facility] [address] [place] [address] Rosa Gale MD Post-op (Left mastectomy , left sentinel node BX) 11/14/2023 Travel 11/09/2023 9:00 AM CDT Office Visit [address] [phone] Rosa Gale MD 11/09/2023 Orders Only [facility] Scanner 1 scan: (1-Ord) [facility], RE-EXCISION LT BREAST MASTECTOMY ANTEROINFERIOR MARGIN., 11/09/2023 11/09/2023 Lab Requisition [facility] [phone] Rosa Gale MD 11/07/2023 Telephone [facility] [address] [place] [address] Rosa Gale MD 11/02/2023 9:00 AM CDT Office Visit [facility] [address] [place] [address] Rosa Gale MD 11/02/2023 Lab Requisition [facility] [phone] Rosa Gale MD 11/02/2023 Lab Requisition [facility] [phone] Rosa Gale MD 11/02/2023 Orders Only [facility] Scanner 1 scan: (1-Ord) [place], LEFT MASTECTOMY, LEFT AXILLARY SENTINEL NODE BIOPSY, 11/02/2023 11/02/2023 Orders Only [facility] [address] [facility] [address] Rosa Gale MD 1 scan: (1-Ord) [facility], [place] SENTINEL NODE INJECT LEFT BREAST, 11/02/2023 10/27/2023 11:45 AM CDT Office Visit [facility] [address] [place] [address] Serge Potter MD Preoperative Exam (DOS: 11/02/2023, left mastectomy, Dr. Gale, [facility]) 10/27/2023 Travel 10/20/2023 Orders Only [facility] Scanner 1 scan: (1-Ord) [facility] BI WITHOUT AND WITH CONTRAST, 10/20/2023 10/11/2023 7:00 AM CDT Orders Only [facility] [address] [place] [address] Lab 10/10/2023 3:15 PM CDT Office Visit [facility] [address] [place] [address] Rosa Gale MD Consult (Left breast cancer) 10/10/2023 Travel 10/03/2023 Orders Only [facility] Scanner 1 scan: (1-Ord) [facility], [place] GUIDED BREAST BIOPSY LT , 10/03/2023 10/03/2023 Orders Only [facility] Scanner 1 scan: (1-Ord) [place], MM CLIP PLACEMENT LT, 10/03/2023 10/03/2023 Lab Requisition [facility] [phone] Carrie Banuelos MD 09/28/2023 9:30 AM CDT Ancillary Procedure [facility] [address] [facility] [address] 09/28/2023 8:30 AM CDT Office Visit [facility] [address] [place] [address] Serge Potter MD Medicare ANNUAL (subsequent) Visit (83 year old); Knee Pain/problem (Left knee pain, gives out once in awhile) 09/28/2023 Telephone [facility] [address] [place] [address] Serge Potter MD Referral (Audiological Evaluation) 09/28/2023 Travel 09/22/2023 Orders Only [facility] Scanner 1 scan: (1-Ord) [facility], US BREAST LT LIMITED, 09/22/2023 09/22/2023 Orders Only [facility] Scanner 1 scan: (1-Ord) [facility] DIAGNOSTIC DIGITAL MAMM W/COMPUTER AIDED DETECTION andTOMO, 09/22/2023 09/14/2023 Orders Only [facility] Scanner 1 scan: (1-Ord) [facility], SCREENING MAMMO BI, 09/14/2023 from Last 3 Months Immunizations Name Administration Dates Next Due Amb Influenza, Inact (High-d ose) (Flu Clinic Only) 01/13/2016,01/06/2014 COVID-19 vaccine (RF Code-Bio NTech 30mcg/0.3mL) 12YO+ BIVALENT PF, MDV 12/24/2021 COVID-19 vaccine (RF Code-Bio NTech 30mcg/0.3mL) PF, MDV 05/21/2020,04/27/2020 Influenza, High-dose [...] Sign Reading Time Taken Comments Blood Pressure 144/80 11/21/2023 1:44 PM CDT Pulse 90 11/21/2023 1:44 PM CDT Temperature 36.6 ??C (97.9 ??F) 08/29/2023 3:15 PM CD T Respiratory Rate 20 11/11/2020 12:50 PM CDT Oxygen Saturation 98% 11/21/2023 1:44 PM CDT Inhaled Oxygen Concentration - - Weight 66.3 kg (146 lb 3.2 oz) 11/21/2023 1:44 P M CDT Height 163.4 cm (5' 4.33) 10/27/2023 11:39 AM C DT Body Mass Index 24.84 10/27/2023 11:39 AM CDT Plan of Treatment Upcoming Encounters Date Type Department Care Team (Late st Contact Info) Description 11/30/2023 2:00 PM CDT Office Visit [facility] [address] [place] [address] Arvind Burkett AuD [address] [place] [address] 12/08/2023 11:00 AM CDT Telemedicine [facility] [address] [place] [address] Benjamin Tesfaye, MS, [facility] [address] [place] [address] Health Maintenance Due Date Last Done Comments [...] Name Priority Date/Time Associated Diagnosis Comments PATH TISSUE EXAM Routine 11/09/2023 8:36 AM CDT LAB TRACKING EVENT Routine 11/09/2023 8: 00 AM CDT SCAN-OPERATIVE/PROCEDU RE REPORT 11/09/2023 12:00 AM CDT PATH BREAST CORE BIOPSY Routine 11/02/2023 11:25 [...] CDT SCAN-MAMMOGRAPHY REPORT 09/14/2023 12:00 AM CDT SCAN-BONE DENSITOMETRY DEXA 10/14/2021 12:00 AM CDT from Last 3 Months or Most Recently Relevant to Health Maintenance Results * PATH TISSUE EXAM (11/09/2023 8:36 AM CDT) Case Report Pathology Report ?Case: [id number] ? Authorizing Provider: ??Rosa Gale MD ??Collected: ? 11/09/2023 0836 ? Ordering Location: ? [facility] ?Received: ?11/09/2023 1704 ? Pathologist: ? Antwan Naik MD ? Specimen: ?Left Breast ? 11/10/2023 5:06 PM CDT [facility] Final Diagnosis A) LEFT BREAST, ANTERIOR-INFERIOR MARGIN, RE-EXCISION: 1. Invasive lobular carcinoma, grade II involving subcutis and focally into dermis ?? - Size: At least 7 mm ?? - Prior procedure site change present 2. Margins: Invasive carcinoma is 1 cm to the nearest margin (superior) 3. Negative for angiolymphatic invasion in this specimen 4. Benign overlying skin 11/10/2023 5:06 PM CDT [facility] Clinical Information Left breast invasive lobular carcinoma, grade II status post mastectomy with positive anterior-inferior margin ([id number]) 11/10/2023 5:06 PM T [facility] Gross Description A) Received in formalin, labeled with the patient's name and left breast anterior, inferior margin, re-excision, is a 12.5 g, 5.8 (ML) x 5.1 (SI) x 1.3 (AP) cm irregular portion of yellow-pink, cauterized fibroadipose tissue with an overlying 4.3 x 3.2 cm triangular anne portion of skin. ??Identified on the skin surface is a 0.2 cm anne-lantigua raised lesion that is 0.3 cm from the closest inferior skin margin. The specimen is previously inked in the OR as follows: Medial-green Lateral-yellow Inferior-red Anterior-orange Additional inks are added in pathology as follows: Superior-blue Posterior (not a true margin): Black The specimen is serially sectioned from lateral to medial to reveal unremarkable cut surface. ??No lesions or masses identified. ??The specimen is entirely submitted sequentially from lateral to medial in 18 cassettes. Time removed from patient: 835 Time placed in formalin: 841 Date removed and placed in formalin: 11/09/2023 Cold ischemic time < 60 minutes. The specimen was fixed in formalin for a minimum of 6 hours and not longer than 72 hours. JKT 11/09/2023 ? 11/10/2023 5:06 PM CDT [facility] Microscopic Description The final diagnosis is based on microscopic examination of appropriate sections of all specimens. 11/10/2023 5:06 PM CDT [facility] Additional Information Interpreted at [facility], Central Laboratory - [address] [place] [address]. [place] [address] 11/10/2023 5:06 PM CDT [facility] Other (Left Breast) 11/09/2023 8:36 AM CDT 11/09/2023 5:04 PM CDT Rosa Gale MD PATHOLOGY/CYTOLO GY Performing Organization Address [facility] de Phone Number [facility] [address] [place] [address], * LAB TRACKING EVENT (11/09/2023 8:00 AM CDT) Only the most recent of3 resultswithin the time period is included. Other (Other) Client Collect / Unknown 11/09/2023 8:00 AM CDT 11/09/2023 3:01 PM CDT Rosa Gale MD LAB BILL ONLY Performing Organization Address [facility] Co de Phone Number [facility] [address] [place] [address], * SCAN-OPERATIVE/PROCEDURE REPORT (11/09/2023 12:00 AM CDT) Scanner OTHER * PATH BREAST CORE BIOPSY (11/02/2023 11:25 AM CDT) Only the most recent of2 resultswithin the time period is included. Case Report Pathology Report ?Case: [id number] ? Authorizing Provider: ??Rosa Gale MD ??Collected: ? 11/02/2023 1125 ? Ordering Location: ? [facility] ?Received: ?11/03/2023 0715 ? Pathologist: ? Yolanda Hardy MD ? Specimens: ?? A) - Left Breast Mastectomy ? B) - Left Axillary [place] Lymph Node 1 ? 11/06/2023 3:19 PM CDT [facility]- CENTRAL LABORATORY Final Diagnosis A) LEFT BREAST, MASTECTOMY: 1. Invasive lobular carcinoma, Petty grade II of III ?a. Size: 14 mm ?b. Core biopsy site is associated with tumor 2. Margins: ?a. Invasive carcinoma is present at the anterior-inferior margin (3 foci, greatest span 1.5 mm) 3. Breast Ancillary Testing: Performed on prior case ([id number]) ?a. Hormone Receptors: ?Estrogen receptor: Positive (97%, strong staining) ?Progesterone receptor: Negative ?b. HER2 by IHC: Negative (1+ by manual morphometry) ?c. Ki67: 16% 4. Dense fibrosis consistent with prior lumpectomy site 5. Benign nipple B) LEFT AXILLARY SENTINEL LYMPH NODE, 1, BIOPSY: 1. Negative for malignancy in 3 lymph nodes (0/3) 11/06/2023 3:19 PM CDT [facility]- CENTRAL LABORATORY Clinical Information [id number] Left breast ILC, gr II 3:00 5 cm fn, 11 mm by imaging; history of ILC left breast 9:00, 3 cm fn, post lumpectomy in 2013 ([id number]) Per [facility] surgeon consult previous ILC ER positive, OK and HER2 negative; 55 mm, sentinel lymph node biopsy benign. 11/06/2023 3:19 PM CDT [facility]- CENTRAL LABORATORY Gross Description A) Received [...] tissue. No lymph nodes are identified grossly. Employment Educational Coord sections are submitted: 1. ??Nipple and nipple [...] 72 hours. LAURA 11/03/2023 11/06/2023 3:19 PM [facility] Intraoperative Consultation A) LEFT BREAST, MASTECTOMY, INTRAOPERATIVE CONSULTATION (Gross Evaluation Only): 1. Tumor grossly identified 2. Biopsy site change is identified grossly 3. Margins are grossly negative by 15 mm (the closest margin is anterior-superior) 4. The mastectomy specimen is 515.2 grams Clinton Amado, 11/02/2023 11:20 AM B) LYMPH NODE, LEFT AXILLARY SENTINEL, BIOPSY, INTRAOPERATIVE CONSULTATION WITH FROZEN SECTION: [Number of frozen sections prepared: 3] 1. 3 lymph nodes are identified and are negative for malignancy AnhRick Fischer, 11/02/2023 11:45 AM ??Intraoperative consultation, which may have included frozen section preparation, gross specimen examination, and/or cytology touch imprints/smears, was performed by a pathologist during the surgical procedure. ??This testing was performed at: [address] [address] 11/06/2023 3:19 PM [facility] Microscopic Description The final diagnosis is based on microscopic examination of appropriate sections of all specimens. 11/06/2023 3:19 PM [facility] SYNOPTIC REPORTING INVASIVE CARCINOMA OF THE BREAST: [...] (sentinel and non-sentinel): ?3 ?? Number of [place] Nodes Examined: ?3 pTNM CLASSIFICATION (AJCC 8th [...] A3, biopsy site present; defer to core [id number] if indicated 11/06/2023 3:19 PM CDT [facility]- [facility]AT[facility] Additional Information Interpreted at [facility], Central Laboratory - [address], [place] [address] 11/06/2023 3:19 PM CDT [facility] Other (Left Breast Mastectomy) 11/02/2023 11:25 AM CDT 11/03/2023 7:15 AM CDT Specimen (specimen) (Left Axillary [place] Lymph Node 1) 11/02/2023 11:25 AM CDT 11/03/2023 7:15 AM CDT Rosa Gale MD PATHOLOGY/CYTOLO GY Performing Organization Address [facility] Co de Phone Number [facility]AL LAB[facility]ATORY [address] [place] [address], [place] * [place] INJ SENTINEL NODE BREAST [...] ,IFOBT Negative Negative 10/18/2023 10:41 AM CDT [facility] Stool STOOL SPECIMEN / Unknown Non-Blood / Unknown 10/11/2023 7:48 AM CDT 10/17/2023 7:48 AM CDT Serge Potter MD LABORATORY Performing Organization Address City/[facility]/ZIP Co de Phone Number [facility] [address] [place] [address], [place] [phone] * SCAN-OPERATIVE/PROCEDURE REPORT (10/03/2023 12:00 AM CDT) [...] 5.9 <=6.4 % 09/28/2023 5:48 PM CDT [facility] Blood BLOOD SPECIMEN / Unknown Venipuncture / Unknown 09/28/2023 9:17 AM CDT 09/28/2023 9:17 AM CDT Narrative [facility] - 09/28/2023 5:48 PM CDT ? (<5.7%) ?Normal ? (5.7% to 6.4%) ? Indicates prediabetes ? (>=6.5%) ? Confirms diabetes Falsely low levels may be seen with: Recent Transfusion, Recent Significant Blood Loss, Hemolytic Diseases, or Falsely elevated levels may be seen with: Untreated Anemias, Splenectomy Serge Potter MD CHEMISTRY [facility] [address] [place] [address], * LIPID PANEL W REFLEX MEASURED LDL (09/28/2023 9:17 AM CDT) [facility] CHOLESTEROL,TOTAL 178 100 - 199 mg/dL 09/28/2023 6:04 PM CDT [facility] Comment: Cholesterol, Total Reference Ranges Desirable <200 mg/dL Borderline 200-239 mg/dL High >=240 mg/dL TRIGLYCERIDES 115 <150 mg/dL 09/28/2023 6:04 PM CDT [facility] HDL CHOLESTEROL 56 >40 mg/dL 6:04 PM T [facility] NON-HDL CHOLESTEROL 122 <145 mg/dl 09/28/2023 6:04 PM T [facility] CHOL/HDL RATIO 3.18 <4.50 09/28/2023 6:04 PM T [facility] LDL CHOLESTEROL 99 <=130 mg/dL 09/28/2023 6:04 PM T [facility] VLDL CHOLESTEROL 23 <=30 mg/dL 09/28/2023 6:04 PM CDT [facility] PROVIDER ORDERED STATUS RANDOM 09/28/2023 6:04 PM CDT [facility] Blood BLOOD SPECIMEN / Unknown Venipuncture / Unknown 09/28/2023 9:17 AM CDT 09/28/2023 9:17 AM CDT Serge Potter MD CHEMISTRY [facility] [address] [place] [address], * HEPATIC FUNCTION PANEL (09/28/2023 9:17 AM CDT) ALBUMIN 4.5 4.0 - 4.9 g/dL 09/28/2023 6:04 PM CDT [facility] PROTEIN,TOTAL 7.1 6.0 - 8.0 g/dL 09/28/2023 6:04 PM CDT [facility] BILIRUBIN,TOTAL 0.5 0.0 - 1.2 mg/dL 09/28/2023 6:04 PM CDT [facility] BILIRUBIN,DIRECT <0.2 0.0 - 0.3 mg/dL 09/28/2023 6:04 PM CDT [facility] BILIRUBIN,INDIRE CT 09/28/2023 6:04 PM CDT [facility] Comment:Unable to calculate, Direct Bili <0.2 ALK PHOSPHATASE 61 35 - 104 IU/L 09/28/2023 6:04 PM CDT [facility] ALT (SGPT) 22 10 - 35 IU/L 09/28/2023 6:04 PM CDT [facility] AST (SGOT) 26 10 - 35 IU/L 09/28/2023 6:04 PM CDT [facility] Blood BLOOD SPECIMEN / Unknown Venipuncture / Unknown 09/28/2023 9:17 AM CDT 09/28/2023 9:17 AM CDT Serge Potter MD CHEMISTRY [facility] [address] [place] [address], * (ABNORMAL) BASIC METABOLIC PANEL (09/28/2023 9:17 AM CDT) SODIUM 143 136 - 145 mmol/L 09/28/2023 6:04 PM T [facility] POTASSIUM 4.8 3.5 - 5.1 mmol/L 09/28/2023 6:04 PM T [facility] CHLORIDE 103 98 - 107 mmol/L 09/28/2023 6:04 PM T [facility] CO2,TOTAL 31(H) 22 - 29 mmol/L 09/28/2023 6:[address] [facility] ANION GAP 9 5 - 18 09/28/2023 6:04 PM T [facility] GLUCOSE 103(H) 70 - 99 mg/dL 09/28/2023 6:04 PM T [facility] CALCIUM 10.2 8.8 - 10.2 mg/dL 09/28/2023 6:04 PM T [facility] BUN 17 8 - 23 mg/dL 09/28/2023 6:[address] [facility] CREATININE 0.85 0.50 - 0.90 mg/dL 09/28/2023 6:[address] [facility] BUN/CREAT RATIO 20 10 - 20 6:04 PM T [facility] eGFR 68(L) >90 mL/min/1.7 3m2 09/28/2023 6:04 PM T [facility] Comment:As of 2021, [...] 9:17 AM CDT Serge Potter MD CHEMISTRY [facility]-C[facility]AL LABORATORY [address] [place] [address], * SCAN-ULTRASOUND REPORT (09/22/2023 12:00 AM CDT) Anatomical Region Laterality Modality Other Scanner OTHER * SCAN-BONE DENSITOMETRY DEXA (10/14/2021 12:00 AM CDT) Anatomical Region Laterality Modality Other Scanner OTHER from Last 3 Months or Most Recently Relevant to Health Maintenance Advance Directives * Full Code (Latest Code Status on File) Date Activated Date Inactivated Comments 09/04/2013 3:19 PM 09/06/2013 10:21 AM Care Teams Vice President Global Digital Marketing Relationship Specialty Start Date End Date Serge Potter MD [address] [place] [address] PCP - General Family Practice 08/24/17 Juan Oliveira MD Surgery - Orthopedics 08/14/12 [facility] D [facility] [address] [place] [address] [employer] Developer 08/14/12 Jimmie Hartman [facility] [address] [place] [address] Hematology and Oncology 09/02/14
--- OUTSIDE RECORDS SUMMARY | 2023-11-30 12:54 | XMS_ITS | Clinical Summary ---
Author Organization [facility] Address [address], [place] [address] Care Team Providers Care Welt Cutter Name Role Phone Herson Fournier MD Primary Care Provider + [phone] Source Comments You are receiving this document as you are listed as the primary care provider,follow-up provider, or the patient has been referred to you for consultation.This is in compliance with the Medicare and[facility] Hospital[facility] EHR Incentive Program,which states Providers who [...] age to complete this topic Care Teams Welt Cutter Relationship Specialty Start Date End Date Herson Fournier MD [address] [place], [place] [id number] PCP - General 07/05/10
--- NOTE | 2023-11-30 13:00 | CRLHL7_ITS ---
For Patients: As a result of the Century Cures Act, medical imaging exams and procedure reports are released immediately into your electronic medical record. You may view this report before your referring provider. If you have questions, please contact your health care provider. DXA BONE MINERAL DENSITY STUDY Reason for exam: Unspecified menopausal and perimenopausal disorder. Current height (in): 64. Weight (lb): 145. Menopause age: 55. Ethnicity: White. 1. Have you had a previous hip or vertebral fracture? No. 2. Have you had any fractures during your adult life which did not result from significant trauma (e.g., auto accident)? No. 3. Did either of your parents have a hip fracture? No. 4. Do you smoke? No. 5. Have you ever taken Glucocorticoids? No. 6. Do you have rheumatoid arthritis? No. 7. Do you have secondary osteoporosis? No. 8. Do you drink 3 or more alcoholic drinks per day? No. 9. Are you being treated for osteoporosis? No. 10. Have you ever taken any of the following medications: Actonel, Evista, Fosamax, Miacalcin, Reclast, Boniva, Forteo, HRT (i.e., estrogen/hormone therapy), Protelos, Prolia, Vitamin D, Calcium, other ??? please specify. ANSWER: Yes, Vitamin D, HRT (i.e., estrogen/hormone therapy), and calcium. 11. Do you have any of the following medical conditions: Anorexia or bulimia, asthma or emphysema, end stage renal disease, hyperparathyroidism, any seizure disorders, cancer, inflammatory bowel diseases, hysterectomy, other ??? please specify. ANSWER: Yes, cancer. 12. What was your maximum height (inches)? 65.5. 13. Do you perform weight bearing exercise regularly? No. 14. Do you regularly consume dairy products? Yes. 15. Do you drink caffeinated beverages? Yes. 16. At what age did your period start? 12. 17. Are you premenopausal? No. 18. How many full-term pregnancies have you had? 2. 19. Have you ever missed your period for more than 6 months in a row (not including or menopause)? No. TECHNIQUE: Bone mineral density study was performed using the [employer]. FINDINGS: The results of the study expressed as bone mineral density (BMD) are as follows: Lumbar spine L1 to L3: BMD: 1.002 g/cm2. T-score: -0.1. Z-score: 2.6 Neck Left: BMD: 0.948 g/cm2. T-score: 0.9. Z-score: 3.4 Right: BMD: 0.946 g/cm2. T-score: 0.9. Z-score: 3.3 Total Left: BMD: 1.006 g/cm2. T-score: 0.5. Z-score: 2.8 Right: BMD: 0.992 g/cm2. T-score: 0.4. Z-score: 2.7 IMPRESSION: Normal bone density. *Comparison exams done prior to 09/2019 were performed on different unit, [employer]. COMPARISON: Compared with scan of 10/14/2021, the bone mineral density has decreased by 0.4 percent at the spine and decreased by 0.4 percent at the hip. Compared with scan of 10/03/2019, the bone mineral density has decreased by 3.0 percent at the spine and decreased by 6.4 percent at the hip. Antwan Patel M.D. Diagnostic Radiologist [email or web address] RADHA/ed ward/Dictated by: Antwan Patel MD @ 12/01/2023 1:15:00 PM (Electronically Signed)
== END 2023-11-30 12:48 | disposition home or self-care (01) ==
LOC: RAD 12:48
PROVIDERS: PCP Family Medicine; Visit Provider Internal Medicine Hematology & Oncology
DX: N95.9 Unspecified menopausal and perimenopausal disorder (principal)
CPT/HCPCS: 77080

== ENCOUNTER 2024-01-25 13:30 | Outpatient (RCR) | payer MEDICARE, BC, SELFPAY ==
--- NOTE | 2023-10-12 08:26 | OT.OPLE2 ---
OT Outpatient Lymphedema Eval* OT Outpatient Lymphedema Eval* Start: 10/11/23 12:33 Freq: Status: Active Protocol: Document 10/11/23 11:01 AMB (Rec: 10/12/23 08:26 AMB [id number]) E-signed By Suzi Leigh, OTR/L, CLT, HORTICULTURALIST OT Outpatient Evaluation Details Type Type Eval Complexity Low Insurance Information Insurance Information Insurance Information Medicare B OT OP Lymphedema Evaluation Current Condition/Medical Diagnosis Referring Provider Dr Gale Medical Diagnoses Cancer of the left breast Treatment Diagnosis Lymphedema risk Date Of Onset DOS: 11/02/23 Medical Contraindications CA,Arthritis,Osteoporosis Medical History Medical History Radiation,Arthritis Medical History Comments Hx of left breast cancer 10 years ago treated with lumpectomy with SLNB x2 and XRT. Surgical History Surgical History Lumpectomy left breast with 2 LN removed followed by XRT 10 years ago Medications Medications atorvastatin 20 mg tablet 20 mg PO .Bedtime cholecalciferol (vitamin D3) 25 mcg (1,000 unit) tablet 1,000 unit PO DIRECTED vitamin E mixed 400 unit capsule 400 unit PO DAILY clobetasol 0.05 % cream 1 topical .As Needed PRN Rx Instructions: APPLY SPARINGLY TO AFFECTED AREA magnesium 250 mg tablet 250 mg PO QDAY multivitamin [Multiple Vitamins] Tablet 1 tab PO QDAY Lincoln-3 (with dpa) 1,050-1,200 mg capsule 1 cap PO QDAY venlafaxine 37.5 mg capsule, extended release 24hr 37.5 mg PO QDAY trazodone 50 mg tablet 50 mg PO QDAY glucosamine HCl 1,500 mg tablet 1,500 mg PO QDAY aspirin 81 mg tablet,delayed release (DR/EC) 81 mg PO QDAY calcium carbonate 600 mg calcium (1,500 mg) tablet 600 mg PO BID letrozole 2.5 mg tablet 2.5 mg PO DAILY Qty: 100 3RF propranolol 10 mg tablet Family History Family History of Lymphedema No Current Work Status Current Work Status Retired Subjective Subjective Pt states she will be undergoing surgery on November for left breast cancer. She is not sure what procedure will be done as of yet. She may have another lumpectomy or possibly a mastectomy. Pt will have an MRI to determine. Pt denies pain, and states she is all too familiar with how this all works because she had breast cancer in the same breast 10 years ago, treated with a lumpectomy and radiation therapy. Pt states she likes to stay active by walking, she and her leave for [place] in early February where they spend their [place]. She is hoping she is healed and done with her treatments by then so that she can still go. Living Situation Current Living Situation Home With Spouse Or SO Patient Difficulties Patient Difficulties Comments Pt has some knee pain due to OA, sometimes has difficulty with walking. Problem List Problem List Limited Knowledge of Lymphedema Treatment/Condition /Precautions,Limited Knowledge of Skin Care & Infection Precautions,Significant Risk For Infection For Lymphedema Related Complications,Does Not Have a HEP,Does Not Have Appropriate Compression Garments For LT Management Exercise History Does Patient Exercise Regularly Yes Exercise Comments Enjoys walking, stays active caring for her home. Pain Pain Yes Pain Comments Knee pain due to OA ROM/Strength ROM/Strength Comments No significant limitations in UE AROM or strength. Compression History Does Patient Currently Wear Compression No During Daytime Does Patient Currently Wear Compression No At Night Current Swelling (Location/Pitting/Texture) Pitting Scale: 0 = No pitting 1+ Tissue returns to normal almost immediately 2+ Tissue returns after 15-30 seconds 3+ Tissue returns after 1-1/2 minutes 4+ Tissue returns after 2-3 minutes N/A Tissue no longer pits due to induration Tissue texture: Soft or indurated Clinical Presentation Area Left upper quadrant will be at risk for lymphedema following surgery and XRT Triggering Event & Start Date of Nov 0104/2023, pt will have Swelling/Lymphedema lumpectomy with SLNB, this may be followed by XRT Positive Stemmer's Sign No Circumferential Measurements Upper Extremity Left Upper Extremity MCP (in cm) 18.2 Palm (in cm) 18.3 Smallest Wrist Measurement (in cm) 15.8 Distance Between Palm and Smallest Wrist 20.2 Circumference Measurement 10 cm Above Smallest Wrist Measurement 24.6 20 cm Above Smallest Wrist Measurement 27.5 30 cm Above Smallest Wrist Measurement 30.0 Total Girth in cm 134.4 UE Volume B 468.131 UE Volume C 329.84 UE Volume D 540.57 UE Volume E 658.17 Right Upper Extremity MCP (in cm) 18.2 Palm (in cm) 18.3 Smallest Wrist Measurement (in cm) 15.5 Distance Between Palm and Smallest Wrist 19.8 Circumference Measurement 10 cm Above Smallest Wrist Measurement 24.7 20 cm Above Smallest Wrist Measurement 27.0 30 cm Above Smallest Wrist Measurement 29.5 Total Girth in cm 133.2 UE Volume B 451.046 UE Volume C 327.11 UE Volume D 532.10 UE Volume E 635.49 Assessment Assessment Pt presents pre-operatively for initiation of lymphedema surveillance program. Following her 11/02/23 left sided lumpectomy or mastectomy (TBD) with SLN biopsy, pt will be at risk for lymphedema in her LUE / upper quadrant due to LN removal. Pt may need radiation which would add to her risk. Pt will benefit from skilled OT intervention for pt education, monitoring / surveillance in order to provide early detection / intervention to assure best positive outcomes with fewer lymphedema related complications if the need arises. Pt demonstrates good interest and motivation to be an active participant in her care. Pt asked multiple pertinent questions and received satisfactory answers. Pt was given contact info and encouraged to reach out if more questions Patient Goals Patient Goals 1. Pt will demonstrate a general understanding of the lymphatic system, s/s of lymphedema, treatment of lymphedema, implications of untreated lymphedema, s/s of infection and the correlation of infection related to lymphedema. 3 months 2. Pt will be compliant with quarterly assessments for lymphedema surveillance in order to obtain early intervention with best outcomes if needed. 12 months Treatment Plan Treatment Plan Evaluation,Edema Control,Joint Mobilization,Manual Therapy, Wound Care/Scar Management, Therapeutic Exercise, Therapeutic Activities,Self- Care/Home Management,Education Other Treatment Plan 1 visit 4 weeks post op then 1 visit quarterly or prn if pt develops lymphedema. Certification Certification Statement I Certify That: Therapy Services Provided, Therapy Plan Established, Therapy Plan Reviewed Certification Information Clinic ID # [id number] Initial Certification Date 10/12/23 Recertification Due Date 01/09/24 Provider Signature Required Yes Provider Signature Shows Agreement With POC & Medical Necessity Physician NPI Number Write NPI# Here Physician Comment/Change Comment or Changes Physician Signature & Date Requested Please Sign/Date Here
--- NOTE | 2023-11-01 16:07 | PT.OPEX ---
PT [place] Outpatient Eval PT [facility] Outpatient Eval Start: 11/01/23 13:57 Freq: Status: Active Protocol: Document 11/01/23 13:57 ENM (Rec: 11/01/23 16:00 ENM [id number]) E-signed By Carolyn Rivera DPT Physical Therapy Outpatient Evaluation Insurance Information Recert Due Date 01/30/24 Insurance Name Medicare B Medical Diagnosis Invasive lobular carcinoma of left breast in female Treating Diagnosis impaired posture, decreased shoulder ROM Referring MD Gale Subjective Subjective Patient presents to PT for pre -operative appointment prior to left breast cancer surgery on November 01 for invasive lobular carcinoma ER+ DC- HER2 -. She is going to have a left mastectomy with no reconstruction. She was treated for left breast cancer 10 years ago with lumpectomy and radiation. Was on endocrine therapy for the past 10 years. Has not seen oncology yet. She stays active in her house with cleaning and doing the steps. She walks when she is in [facility] for the winter. She goes from February-August to [facility]. Does have a history for knee pains. PMHx: right knee replacement 10 years ago Pain Comments a little soreness in the left breast from the biopsy Current Work Status Retired Objective Other/Pertinent Objective AROM standing: Shoulder flexion L 130 R 128 ( Passive L 149 R 144) abduction L 158 R 133 Scaption L 125 R 134 IR L T5 R T10 ER WNL Posture: increased thoracic kyphosis and forward head posture Joint mobility: posterior glide of GH L normal mobility, R slightly more stiff inferior glide of GH L normal mobility, R slightly more stiff Scapular control: fair Pec length in supine abd/ER: 25% limited on R compared to L Functional Test Performed & Score Pre op SPADI: mainly challenged with reaching behind on her right side compared to L Assessment Assessment/Impression Patient presents to PT pre- operatively for planned Breast Cancer surgery to include left mastectomy and planned SLNB without reconstruction on 11/02/23. Assessment today included baseline UE ROM, postural, and joint mobility measurements which are to be compared to measurements retaken 4 weeks post-surgery. At that time, any reduced movement, decline in function, or postural issues will be addressed with skilled care and new goals will be established. Education was given today regarding post-operative signs of infection, axillary cording, seroma formation, and home program to be performed within the first 3-4 weeks post-operatively focusing on UE mobility within surgical restrictions. Primary Functional Limitations none at baseline Plan of Care Rehabilitation Potential Good Physical Therapy Goals Goals pre op 1. Pt demonstrates awareness of post-operative movement restrictions and HEP to facilitate lymphatic regeneration and reduce the risk of seroma formation, axillary web syndrome and lymphedema while ensuring shoulder joint mobility. Coordination/Communication With Referral Source Treatment Plan/Direct Interventions Joint Mobilization,Manual Therapy,Neuromuscular Re-ed, Self-Care/Home Management, Therapeutic Activities, Therapeutic Exercises Frequency/Duration 1x pre-op 1-2x a week for 3-4 weeks after surgery Patient Will Be Discharged From Therapy Completion of LTG(s), Independent w/HEP Evaluation Billing Untimed Code Treatment Minutes 23 Complexity Low Certification Information Initial Certification Date 11/01/23 Ending Certification Date 01/30/24 Provider Signature Required Yes Provider Signature Shows Agreement With POC & Medical Necessity Physician NPI Number Write NPI# Here Physician Comment/Change : Physician Signature & Date Requested Please Sign/Date Here
--- NOTE | 2023-11-29 12:54 | PT.OPDNX ---
PT [place] Out[facility] Daily Note PT [facility] Outpatient Daily Note Start: 11/01/23 13:57 Freq: Status: Active Protocol: Document 11/29/23 07:46 ENM (Rec: 11/29/23 09:49 ENM [id number]) E-signed By Carolyn Rivera DPT PT OP Daily Progress Note Visit Information Note Type Re-Evaluation Visit Number 2 Insurance Information Recert Due Date 02/27/24 Insurance Name Medicare B Medical Diagnosis Invasive lobular carcinoma of left breast in female Treating Diagnosis left arm pain, decreased shoulder ROM, impaired posture Referring MD Gale Subjective Subjective Patient returns to PT after left mastectomy surgery on 11/01 for invasive lobular carcinoma ER+ ME- HER2-. Patient had a re-excision on as they did not get clear margins the first time. It took a couple of weeks to feel better. Has minimal pain now except with reaching activities. Feels a little tightness through the armpit. Doing her hair is getting better. Has not seen oncology so she is not sure what pill she will be on. They also encouraged getting genetic testing done which she is not sure that she will do. She was treated for left breast cancer 10 years ago with lumpectomy and radiation. Was on endocrine therapy for the past 10 years. Her plan is to go to [place] from February- August. Does have a history for knee pains. PMHx: right knee replacement 10 years ago Pain Comments minimal pain 4/10 Objective Other/Pertinent Objective AROM in standing Flexion L 90 no discomfort R 124 (Performed to shoulder height per precautions) Abduction L 90 slight pull R 135 Palpation: Mod tissue restrictions around incision Posture: increased thoracic kyphosis and forward head posture Observation/swelling: Incision is healing well with scabbing still present in the middle Cording - Functional Test Performed & Score Pre op SPADI: mainly challenged with reaching behind on her right side compared to L Post op SPADI: pain 30/50 disability 29/80 total 59/130 Patient Instructed in Risks/Benefits Yes Therapeutic Exercise Therapeutic Exercise: To Restore Did not progress home program Functional Status as patient is not 4 weeks post op yet Manual Therapy Techniques Manual Therapy Minutes (minutes) 26 Manual Therapy Techniques -soft tissue mobilization and massage to L pec majors, intercostals, L axilla -Passive shoulder flexion per patient tolerance -Gentle scar mobilization and fascial mobility (primarily to lateral incision as medial incision is still healing) Treatment Minutes Untimed Code Treatment Minutes 20 Timed Code Treatment Minutes 26 Total Treatment Time 46 Billing Units Manual Therapy Units 2 Re-Evaluation Units 1 Assessment/Impression Assessment/Impression Patient returns to PT for her 4 week post-operative evaluation to compare baseline pre-operative measurements to her current condition, in addition to assessing for post -operative impairments that will benefit from continuation of skilled care. Due to having had a re-excision patient is just 3 weeks post op today. She currently presents with decrease range of motion and moderate tissue restrictions that will benefit from skilled care, including therapeutic exercise, manual therapy, neuromuscular education, self-care training and HEP training, in order to return her to her prior level of function and comfort. Exercises will be progressed at next visit when patient is 4 weeks post op and no longer has restrictions. Plan of Care Physical Therapy Goals In 4-6 visits: 1. Restore shoulder AROM, as measured at pre-operative evaluation, after initial recovery period to improve 1 and 2-handed functional activity ability. (This will reduce during radiation therapy inflammatory phase, if needed.) 2. Restore functional scoring using SPADI assessment tool to pre-operative amounts to ensure full return to baseline function. 3. Restore full upright posture per patient perception or compared to pre-operative findings. Daily Plan of Care Continue per POC Daily Plan of Care Comments Plan: MT PRN progress HEP focus on AROM Recertification Information Initial Certification Date 10/31/24 Recertification Start Date 11/28/24 Recertification Due Date 02/26/25 Reasons to Continue Skilled Therapy ---- Rehabilitation Potential ---- Continued Plan of Care and Interventions ---- Provider Signature Shows Agreement With POC & Medical Necessity Physician Comment/Change Comment or Changes Physician NPI Number #
--- NOTE | 2024-01-25 14:14 | OT.OPLDN2 ---
OT Outpatient Lymphedema Daily Note OT Outpatient Lymphedema Daily Note* Start: 10/11/23 12:33 Freq: Status: Active Protocol: Document 01/25/24 13:25 AMB (Rec: 01/25/24 14:14 AMB [id number]) E-signed By Suzi Leigh, OTR/L, CLT, MARINE [employer] DOCK ATTENDANT Type of Note Type of Note Type of Note Daily Note,Discharge Note, Recert/Progress Note Visit Number 3 Insurance Information Insurance Information Insurance Information Medicare B OT OP Lymphedema Daily/Progress Note Current Condition/Medical Diagnosis Referring Provider Dr Gale Treatment Diagnosis Lymphedema risk Date Of Onset DOS: 11/02/23 Medical Contraindications CA,Arthritis,Osteoporosis Medical History Medical History Radiation,Arthritis Medical History Comments Hx of left breast cancer 10 years ago treated with lumpectomy with SLNB x2 and XRT. Surgical History Surgical History Lumpectomy left breast with 2 LN removed followed by XRT 10 years ago Medications Medications atorvastatin 20 mg tablet 20 mg PO .Bedtime cholecalciferol (vitamin D3) 25 mcg (1,000 unit) tablet 1,000 unit PO DIRECTED vitamin E mixed 400 unit capsule 400 unit PO DAILY clobetasol 0.05 % cream 1 topical .As Needed PRN Rx Instructions: APPLY SPARINGLY TO AFFECTED AREA magnesium 250 mg tablet 250 mg PO QDAY multivitamin [Multiple Vitamins] Tablet 1 tab PO QDAY Iva-3 (with dpa) 1,050-1,200 mg capsule 1 cap PO QDAY venlafaxine 37.5 mg capsule, extended release 24hr 37.5 mg PO QDAY trazodone 50 mg tablet 50 mg PO QDAY glucosamine HCl 1,500 mg tablet 1,500 mg PO QDAY aspirin 81 mg tablet,delayed release (DR/EC) 81 mg PO QDAY calcium carbonate 600 mg calcium (1,500 mg) tablet 600 mg PO BID letrozole 2.5 mg tablet 2.5 mg PO DAILY Qty: 100 3RF propranolol 10 mg tablet Family History Family History of Lymphedema No Current Work Status Current Work Status Retired Subjective Subjective Pt states her treatment will be Arimidex, states there was an option to do injections, but [place] so she would not be able to get to the clinic for these injections and opted for Arimidex instead. Pt states she has started the Arimidex and doing ok with it but having hot flashes. Pt was seen at [facility] and was fitted for a prosthesis, having some trouble getting the prosthesis into her bra and it shifts when she is wearing it. Pt continues with her HEP and scar mobilization, states she doesn't always get it in 3x daily but at least once or twice. Living Situation Current Living Situation Home With Spouse Or SO Patient Difficulties Patient Difficulties Comments Pt has some knee pain due to OA, sometimes has difficulty with walking. Problem List Problem List Limited Knowledge of Lymphedema Treatment/Condition /Precautions,Limited Knowledge of Skin Care & Infection Precautions,Significant Risk For Infection For Lymphedema Related Complications,Does Not Have a HEP,Does Not Have Appropriate Compression Garments For LT Management Exercise History Does Patient Exercise Regularly Yes Exercise Comments Enjoys walking, stays active caring for her home. Pain Pain Yes Pain Comments Knee pain due to OA ROM/Strength ROM/Strength Comments No significant limitations in UE AROM or strength. Compression History Does Patient Currently Wear Compression No During Daytime Does Patient Currently Wear Compression No At Night Current Swelling (Location/Pitting/Texture) Pitting Scale: 0 = No pitting 1+ Tissue returns to normal almost immediately 2+ Tissue returns after 15-30 seconds 3+ Tissue returns after 1-1/2 minutes 4+ Tissue returns after 2-3 minutes N/A Tissue no longer pits due to induration Tissue texture: Soft or indurated Clinical Presentation Area Left upper quadrant is at risk for lymphedema following surgery and XRT Triggering Event & Start Date of Pt had lumpectomy with SLNB, Swelling/Lymphedema this may be followed by XRT Positive Stemmer's Sign No Circumferential Measurements Upper Extremity Left Upper Extremity MCP (in cm) 18.0 Palm (in cm) 18.0 Smallest Wrist Measurement (in cm) 15.5 10 cm Above Smallest Wrist Measurement 19.5 20 cm Above Smallest Wrist Measurement 24.5 30 cm Above Smallest Wrist Measurement 26.5 40 cm Above Smallest Wrist Measurement 30.0 Total Girth in cm 152.0 Upper Extremity Volume Total in cm 1,785.17 Right Upper Extremity MCP (in cm) 18.2 Palm (in cm) 18.3 Smallest Wrist Measurement (in cm) 15.5 10 cm Above Smallest Wrist Measurement 19.8 20 cm Above Smallest Wrist Measurement 24.7 30 cm Above Smallest Wrist Measurement 27.0 40 cm Above Smallest Wrist Measurement 29.5 Total Girth in cm 153.0 Upper Extremity Volume Total in cm 1,812.26 Treatment Self-Care/Home Management Minutes ( 30 minutes) Self-Care/Home Management Comments Provided review of patient education regarding the lymphatic system, s/s of lymphedema, treatment options for lymphedema, implications of untreated lymphedema, infection and it's correlation to lymphedema as well as implications of untreated infection. Discussed risk reduction practices including skin care and monitoring strategies. Discussed the importance of regular exercise and healthy habits. Provided recommendations for improving fit of prosthesis, also discussed yearly bra refills and showed pt how to measure her left arm in order to appropriately compare measurements to the right arm should concerns arise. Total Occupational Therapy Minutes 30 Assessment Assessment Pt is doing well, she verbalizes understanding of lymphedema surveillance including s/s of lymphedema and how to monitor. Pt is comfortable with her home program and has been consistent and compliant. Pt has life underwriter's contact info and encouraged to call should she have questions or concerns. Patient Goals Patient Goals All goals have been met. 1. Pt will demonstrate a general understanding of the lymphatic system, s/s of lymphedema, treatment of lymphedema, implications of untreated lymphedema, s/s of infection and the correlation of infection related to lymphedema. 3 months 2. Pt will be compliant with quarterly assessments for lymphedema surveillance in order to obtain early intervention with best outcomes if needed. 12 months Treatment Plan Treatment Plan Evaluation,Edema Control,Joint Mobilization,Manual Therapy, Wound Care/Scar Management, Therapeutic Exercise, Therapeutic Activities,Self- Care/Home Management,Education Other Treatment Plan 1 visit 4 weeks post op then 1 visit quarterly or prn if pt develops lymphedema. Occupational Therapy Billing Units Treatment Minutes Timed Treatment Minutes 30 Total Treatment Minutes 30 Billing Units Self Care/Home Management 2 Certification Statement Certification Statement I Certify That: Therapy Services Provided, Therapy Plan Established, Therapy Plan Reviewed Recertification Information Recertification Information Initial Certification Date 10/12/23 Recertification Start Date 01/10/24 Recertification Due Date 04/10/24 Reasons to Continue Skilled Therapy Pt is participating in a lymphedema surveillance program and will benefit from continued surveillance to provide early intervention and treatment in the event that she develops lymphedema in order to achieve best outcomes as well as continued pt education on risk reduction practices. Rehabilitation Potential Good Click To Default 'Per treatment plan' Per treatment plan Continued Plan of Care and Interventions Per treatment plan Provider Signature Required Yes Provider Signature Shows Agreement With POC & Medical Necessity Physician NPI Number Write NPI# Here Physician Comment/Change Comment or Changes Physician Signature & Date Requested Please Sign/Date Here Discharge Note Discharge Note Discharge Summary Pt has been seen for a total of 3 visits since her IE on 02/24 with primary focus on lymphedema surveillance and pt education. Pt has been consistent and compliant with clinic visits and home recommendations. Pt will be leaving for her winter home in a couple of weeks and will continue to self-monitor and report if concerns arise. Pt has met all of her goals and feels comfortable with the plan. Interventions Provided During Treatment Evaluation,Manual Therapy, Therapeutic Exercise, Therapeutic Activities,Self Care/Home Management,Education Recommendations/Reason for Discharge Met All Therapy Goals Other Reason for Discharge Pt would continue for lymphedema surveillance for 12 months following her surgery, however, she is going to be leaving the area until August. Discharge Instructions Continue with HEP, scar mobilization and self- monitoring.
== END 2024-01-26 07:31 | disposition home or self-care (01) ==
PROVIDERS: PCP Family Medicine; Visit Provider Surgery
DX: C50.912 Malignant neoplasm of unspecified site of left female breast (principal); Z51.89 Encounter for other specified aftercare
CPT/HCPCS: 97110; 97140; 97161; 97164; 97165; 97535

== ENCOUNTER 2024-01-31 13:00 | Outpatient (RCR) | payer MEDICARE, BC, SELFPAY ==
--- NOTE | 2023-09-19 15:57 | ONC.NURNOTE ---
Reviewed with pt abnormal mammogram results and need for additional imaging. Pt has personal hx of left breast cancer 9 o'clock 3 cm FTN dx 2013; s/p lumpectomy 08/2013. New area of concern is in a different are of the same (left) breast. Orders placed for left diagnostic mammogram and limited US. Pt previously scheduled to f/u with Med Onc Th09/20 (Lazara Cifuentes PA-C). Pt requests to push appt out until workup is complete. Lazara notified; appt cancelled.
--- NOTE | 2023-11-16 11:58 | ONC.NURNOTE ---
Request made for both liquid and tissue [facility] testing. Liquid sample was picked up by children's minister on 11/12 and tissue sample request was faxed 11/15. Referral for genetic counseling was also faxed and patient is aware that [facility] will call her to schedule this appointment.
--- NOTE | 2023-11-30 11:18 | ONC.NURNOTE ---
Patient called to report that she requested the [facility] tissue testing be cancelled. It was not covered by Medicare and would cost her $3500 out of pocket. I informed patient that I would update Dr. Banuelos and we will discuss further at her appointment on 12/10.
== END 2024-05-11 23:59 | disposition home or self-care (01) ==
LOC: CCIC 13:00
PROVIDERS: PCP Family Medicine; Visit Provider Internal Medicine Hematology & Oncology
DX: C50.912 Malignant neoplasm of unspecified site of left female breast (principal); Z17.0 Estrogen receptor positive status [ER+]; Z79.811 Long term (current) use of aromatase inhibitors
CPT/HCPCS: 99214; 99215; G0463

== ENCOUNTER 2024-10-02 14:38 | Outpatient (CLI) | payer MEDICARE, BC, SELFPAY ==
--- NOTE | 2024-10-02 15:00 | CRLHL7_ITS ---
For Patients: As a result of the Cures Act, medical imaging exams and procedure reports are released immediately into your electronic medical record. You may view this report before your referring provider. If you have questions, please contact your health care provider. INDICATION: RIGHT SCREENING MAMMOGRAM, ASYMPTOMATIC 84 Y/O FEMALE COMPARISON: 09/08/2021, 09/12/2022, 09/14/2023, 09/22/2023 BY ANTWAN BUTT PRIORS 09/08/2021, 09/12/2022, 09/14/2023, 09/22/2023 TECHNIQUE: Digital mammogram in CC and MLO projections including computer-aided detection (CAD) and tomosynthesis. BREAST COMPOSITION: There are scattered areas of fibroglandular density. FINDINGS: No suspicious findings. ASSESSMENT: BI-RADS 1 Negative RECOMMENDATION: Annual screening mammogram. A lay language report of this examination will be provided to the patient. Dictated by: Antwan Butt MD @ 10/07/2024 09:43:17 (Electronically Signed)
== END 2024-10-02 14:39 | disposition home or self-care (01) ==
LOC: MAMMO 14:38
PROVIDERS: PCP Family Medicine; Visit Provider Internal Medicine Hematology & Oncology
DX: Z12.31 Encounter for screening mammogram for malignant neoplasm of breast (principal)
CPT/HCPCS: 77063; 77067

== ENCOUNTER 2024-11-05 10:25 | Outpatient (CLI) | payer MEDICARE, BC, SELFPAY ==
--- NOTE | 2024-11-05 11:00 | CRLHL7_ITS ---
For Patients: As a result of the Century Cures Act, medical imaging exams and procedure reports are released immediately into your electronic medical record. You may view this report before your referring provider. If you have questions, please contact your health care provider. Indication: FOLLOW UP OF BREAST CANCER. MASTECTOMY 1 YEAR AGO Technique: CT Chest/Abd/Pelvis 74CC ISOVUE 370 intravenous contrast AND WATER PREP Please note that all CT scans at this facility use dose modulation, iterative reconstruction, and/or weight-based dosing when appropriate to reduce radiation dose to as low as reasonably achievable. Comparison: 08/19/[address] Findings: In the chest, visualized thyroid is within normal limits. No intrathoracic adenopathy. Status post left mastectomy. No fracture. 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 No pleural effusion or pulmonary edema. No pulmonary nodule. In the abdomen, there is no intrahepatic lesion. 3 millimeter calcification within the gallbladder. No biliary obstruction. Normal pancreas. The spleen is within normal limits. Normal adrenal glands. Nonobstructing stone lower pole left kidney measures 3.7 millimeters. Extrarenal pelvis is present bilaterally. No enlarged retroperitoneal or mesenteric lymph nodes. In the pelvis, sigmoid diverticulosis is present. No diverticulitis. No bowel obstruction or free air. No free fluid or abscess. No pelvic or inguinal adenopathy. Uterus is diminutive. No adnexal mass. Grade 1 degenerative spondylolisthesis of L4 on L5. No fracture. No destructive osseous lesion. Impression: No evidence of metastatic disease. Nonobstructing left renal calculus. Cholelithiasis. Please note that all CT scans at this facility use dose modulation, iterative reconstruction, and/or weight-based dosing when appropriate to reduce radiation dose to as low as reasonably achievable. Dictated by Antwan Patel MD @ 11/06/2024 3:13:36 PM (Electronically Signed)
[2024-11-05 11:02] LABS: Creatinine* 0.8 mg/dL (0.5-1.5); Estimated Glomerular Filt Rate 73 ml/min
== END 2024-11-05 10:26 | disposition home or self-care (01) ==
LOC: CT 10:26
PROVIDERS: PCP Family Medicine; Visit Provider Internal Medicine Hematology & Oncology
DX: C50.912 Malignant neoplasm of unspecified site of left female breast (principal); N20.0 Calculus of kidney; K80.20 Calculus of gallbladder without cholecystitis without obstruction
CPT/HCPCS: 36415; 71260; 74177; 82565; Q9967

== ENCOUNTER 2024-11-11 09:00 | Outpatient (RCR) | payer MEDICARE, BC, SELFPAY ==
--- NOTE | 2024-05-27 15:24 | ONC.NURNOTE ---
Addendum entered by Negin Rivera RN 05/30/24 10:55: Dr. Banuelos called and spoke with patient regarding her concerns and at this time she is to hold her Anastrazole for a few weeks then restart it and see if it is the Anastrazole. (Not a common side effect) Will call if rash reappears Original Note: Patient called into the clinic today with complaints of having a skin rash for the last 3 weeks. She is wondering if it is from her Anastrazole and if she should stop the medication. She reports the rash is the worse on her neck and chest but goes onto her R) arm, onto her stomach, and down her legs. She denies any facial swelling or trouble breathing. Reports she was seen in two weeks ago and was prescribe Hydrocortisone cream and that has not helped much. Reports Benadryl and Calamine lotion help but it doesn't take the rash away completely. She reports that a family member who is a radiologist felt she needed steroids and prescribed her Methylprednisolone yesterday. She is currently wintering in [place]. RN stated she would discuss with Dr. Banuelos and call her back. Advised her that if she developed difficulty breathing or facial swelling she should be seen AMA in the ER. Patient verbalized understanding and is agreeable to the plan.
== END 2025-03-15 23:59 | disposition home or self-care (01) ==
LOC: CCIC 09:00
PROVIDERS: PCP Family Medicine; Visit Provider Internal Medicine Hematology & Oncology
DX: C50.912 Malignant neoplasm of unspecified site of left female breast (principal); Z17.0 Estrogen receptor positive status [ER+]; Z79.811 Long term (current) use of aromatase inhibitors
CPT/HCPCS: 99215; G0463

== ENCOUNTER 2024-11-14 07:53 | Day surgery (SDC) | payer MEDICARE, BC, SELFPAY ==
[2024-11-14] VITALS (23 sets, daily range): BP systolic 88–145; BP diastolic 49–76; PULSE 54–92; RESP 10–124; TEMP 36.2–36.6; O2SAT 94–100; BMI 26.4
[2024-11-14] MEDS: LACTATED RINGERS 1000 ML 1,000 ML 100 ML IV ×2 (08:10→11:09)
[2024-11-14] MEDS: CELECOXIB 200 MG CAPSULE PO ×2 (09:38→20:15)
[2024-11-14] MEDS: OXYCODONE (CR) 10 MG TAB.ER.12H PO (09:38)
[2024-11-14] MEDS: ACETAMINOPHEN 500 MG TABLET 1000 MG PO ×2 (09:38→18:00)
[2024-11-14] MEDS: MIDAZOLAM HCL 1 MG/ML inj IVP (09:39)
--- NOTE | 2024-11-14 09:45 | SUR.PREOP ---
TIME?OUT:?0938 PT/RN/MDA?VERIFICATION?OF?SURGICAL?SITE,?PROCEDURE,?AND?CONSENT OBTAINED?PRIOR?TO?INVASIVE?PROCEDURE.
[2024-11-14] MEDS: TRANEXAMIC ACID 100 MG/ML INJ 1000 MG IV (10:10)
--- NOTE | 2024-11-14 11:17 | CRLHL7_ITS ---
For Patients: As a result of the Cures Act, medical imaging exams and procedure reports are released immediately into your electronic medical record. You may view this report before your referring provider. If you have questions, please contact your health care provider. Indication: Postop TKA Technique: Two views left knee Findings/Impression: Hardware from a left total knee arthroplasty is in satisfactory position. Bone alignment is normal. No sign of acute fracture. Postop changes are within normal limits. Dictated by Antwan Patel MD @ 11/14/2024 12:44:30 PM (Electronically Signed)
--- NOTE | 2024-11-14 11:20 | P.ORPRC_ITS ---
Procedure Note Date of procedure: 11/14/24 Procedure: PREOPERATIVE DIAGNOSIS: Left knee osteoarthritis POSTOPERATIVE DIAGNOSIS: Left knee osteoarthritis NAME OF OPERATION: Left total knee arthroplasty SURGEON: Harshal Tillman MD HELP DESK AGENT: Nelsy Ahuja PA-C ANESTHESIA: Spinal ESTIMATED BLOOD LOSS: 0 mL COMPLICATIONS: None SPECIMENS: None DRAINS: None PREOPERATIVE ANTIBIOTICS: Ancef 1 g IMPLANTS: 1. J&J Attune # 6 narrow posterior stabilized femur 2. # 5 fixed-bearing tibia 3. #6 posterior stabilized, 5 mm fixed-bearing polyethylene 4. 35 patella INDICATIONS: The patient is a 84-year-old with a longstanding history of severe, unrelenting left knee pain secondary to end-stage (grade IV) left knee osteoarthritis. Despite appropriate nonoperative management, including activity modification, anti-inflammatories, [id number] pain medication, bracing, physical therapy, and injections they continue to have pain and disability. Operative intervention was offered. The risks, benefits and expected outcomes were discussed in detail. These included but were not limited to: Infection, bleeding, injury to blood vessel or nerve, venous thromboembolism. All questions were answered to their satisfaction. Use of an photographer's assistant was necessary throughout the case for patient positioning and safety, soft tissue retraction, and closure. PROCEDURE: Spinal anesthesia was administered. The patient was placed supine on the operating table. The photographer's assistant made sure the patient was positioned appropriately. The lower extremity was prepped and draped in the usual sterile fashion. The limb was exsanguinated with the Michael bandage. The pneumatic mony rniquet was inflated to 225 mmHg. A standard anterior incision was made with the knee in flexion. Subcutaneous dissection was sharply taken through fascial layer #1. Full-thickness medial and lateral flaps were elevated. The photographer's assistant retracted the soft tissues and protected them throughout the case. A standard subvastus approach was made. The patella was subluxed. The infrapatellar fat pad was debrided. The menisci and cruciate ligaments were sharply d?brided. Marginal osteophytes were d?brided with the rongeur. The drill was used to penetrate the femoral canal. The canal was aspirated and irrigated with pulse lavage. The intramedullary femoral guide was placed for a 5-degree valgus cut, removing 12 mm off the distal femur. The saw was used to make the cut. Whitesides line and the trans epicondylar axis were marked. The femoral sizing guide was pinned onto the distal femur. Three degrees of external rotation nicely parallels the transepicondylar axis. Pins were placed for posterior referencing. The four-in-one cutting guide was pinned onto the distal femur. The anterior, posterior, and chamfer cuts were made. The photographer's assistant protected the collateral ligaments. The box cutting guide was pinned. The box cuts were made. The boxed trial was placed and was an excellent fit. Drill holes for the lugs were made. Attention was then turned to the proximal tibia. The extramedullary tibial guide was placed for a neutral varus/valgus cut with 5 degrees of posterior slope, removing 2 mm based off the medial tibial surface. The photographer's assistant protected the collateral ligaments and the neurovascular bundle. The saw was used to make the cut. Trial components were placed. The knee was nicely balanced in both flexion and extension. The trial components were removed. The tray was placed in appropriate rotation, parallel to our tibial cutting pins. It was pinned by the photographer's assistant and the drill and the punch were used. The tray was removed. The punch was used again. We placed a bone plug in the femoral canal. Attention was then turned to the patella. [place] patellar thickness was 21.5 mm. The lobster claw resection guide was used with the 7.5 mm edith. The saw was used to make the cut. Drill holes were made by the photographer's assistant. The trial was placed and was an excellent fit. Cancellous surfaces were irrigated with pulse lavage and thoroughly dried by the photographer's assistant. We cemented the tibial component, then the femoral component. We impacted the 5 mm polyethylene onto the tibial tray. The knee was brought into full extension. We then cemented the patellar component. Excessive cement was removed. The cement was allowed to harden. The knee was taken through a range of motion and was found to be nicely balanced in both flexion and extension. The patella tracks centrally. The photographer's assistant did a three minute dilute Betadine solution soak. The photographer's assistant irrigated the wound with 3 liters of normal saline via pulse lavage. The photographer's assistant reapproximated the extensor mechanism with #1 Vicryl in an interrupted [id number] fashion. The photographer's assistant then ran the extensor mechanism with a #1 PDO Stratafix. The photographer's assistant closed the subcutaneous tissues with a 3-0 Stratafix and the skin with a running 3-0 Stratafix in a subcuticular fashion. Glue was used to seal the skin. The photographer's assistant placed a dry dressing. Sponge and needle counts were correct x2. The patient tolerated the procedure well. There were no apparent complications. They were carefully transferred to the hospital bed and taken to the postanesthesia care unit in satisfactory condition. PLAN: The patient will be mobilized with physical therapy. Aspirin will be used for DVT prophylaxis. They will be discharged to home once medically appropriate.
--- NOTE | 2024-11-14 12:36 | P.ANES_ITS ---
Anesthesia Charges Start Date/Time Anesthesia Start Date: 11/14/24 Anesthesia Start Time: 09:55 Stop Date/Time Anesthesia Stop Date: 11/14/24 Anesthesia Stop Time: 12:19 Summary Extremes of Age - Over 70 or under 1: MDA Coding CPT Codes CPT Codes: ANESTH KNEE ARTHROPLASTY - 86022 ([id number]) P2 - PATIENT W/MILD SYST DISEASE, QK - LINUX ADMINISTRATOR 2-4 CNCRNT ANES PROC, QX - FIREWORKS ASSEMBLY SUPERVISOR SVC W/ MD MED DIRECTION Additional Codes: Summary - Extremes of Age - Over 70 or under 1: MDA ([id number])
--- NOTE | 2024-11-14 12:36 | W.ANESCHARGE ---
Anesthesia Charges Start Date/Time Anesthesia Start Date: 11/14/24 Anesthesia Start Time: 09:55 Stop Date/Time Anesthesia Stop Date: 11/14/24 Anesthesia Stop Time: 12:19 Summary Extremes of Age - Over 70 or under 1: MDA Coding CPT Codes CPT Codes: ANESTH KNEE ARTHROPLASTY - 26144 ([id number]) P2 - PATIENT W/MILD SYST DISEASE, QK - BOOKER 2-4 CNCRNT ANES PROC, QX - EDITOR TRADE JOURNAL SVC W/ MD MED DIRECTION Additional Codes: Summary - Extremes of Age - Over 70 or under 1: MDA ([id number])
--- NOTE | 2024-11-14 12:37 | P.NB_ITS ---
Nerve Block Nerve Block Time Seen by Provider: 09:40 Date Seen: 11/14/24 Type of block requested by surgeon for post-operative analgesia: adductor canal Side: left Time out performed: Yes Verification of patient name: Yes Verification of date of : Yes Site marking: site marked Name of person performing procedure: Umesh Continuous monitoring Was continuous monitoring of O2 sat, B/P, cardiac monitor technician, recorded every 15 minutes?: Yes Procedure Checklist: sterile prep, needles and gloves Ultrasound guided. Images saved: Yes Medications given in 5ml increments after negative aspiration: Marcaine %: 0.25 mL: 15 Needle gauge: 20 Precedex (mcg): 25 Patient tolerated procedure well: Yes Block Charges Block Charge (with Pro Fee): Femoral Nerve Use of Ultrasound Machine for Block: Yes- US Guidance/pain block
--- NOTE | 2024-11-14 12:38 | P.NB_ITS ---
Nerve Block Nerve Block Time Seen by Provider: 09:40 Date Seen: 11/14/24 Type of block requested by surgeon for post-operative analgesia: geniculars Side: left Time out performed: Yes Verification of patient name: Yes Verification of date of : Yes Site marking: site marked Name of person performing procedure: Umesh Continuous monitoring Was continuous monitoring of O2 sat, B/P, cafeteria monitor, recorded every 15 minutes?: Yes Procedure Checklist: sterile prep, needles and gloves Ultrasound guided. Images saved: Yes Medications given in 5ml increments after negative aspiration: Marcaine %: 0.25 mL: 9 Needle gauge: 25 Patient tolerated procedure well: Yes Block Charges Block Charge (with Pro Fee): Genicular Nerve Block
--- NOTE | 2024-11-14 15:03 | PM.IMCN1 ---
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 patient states that she does not have personal history of bleeding or blood clots. No family history of DVT/ PE. Postoperatively, Patient is doing well. Her anxiety and depression are maintained on venlafaxine. Tremor maintained on propranolol (Usual dose taken on the morning of surgery). Has Hx of breast cancer maintained on anastrozole ( She took her med on the day of surgery). Review of Systems Status of ROS: Reports: 6 or more systems reviewed and unremarkable except as noted in History and below [facility] Medical History (Updated 11/14/24 @ 15:14 by Delmis Rivera MD) Bilateral carotid artery stenosis ?I65.23 - Occlusion and stenosis of bilateral carotid arteries (ICD-10) Breast cancer ?C50.919 - Malignant neoplasm of unspecified site of unspecified female breast (ICD-10) Essential tremor ?G25.0 - Essential tremor (ICD-10) High cholesterol ?E78.00 - Pure hypercholesterolemia, unspecified (ICD-10) Invasive ductal carcinoma of left breast, stage 2 ?C50.912 - Malignant neoplasm of unspecified site of left female breast (ICD-10) Surgical History (Updated 11/14/24 @ 15:12 by Delmis Rivera MD) S/P left mastectomy ?Z90.12 - Acquired absence of left breast and nipple (ICD-10) Hx of tubal ligation ?Z98.51 - Tubal ligation status (ICD-10) 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) ?Z96.651 - Presence of right artificial knee joint (ICD-10) History of lumpectomy of left breast ?Z98.890 - Other specified postprocedural states (ICD-10) Social History What is your current living situation?: I presently have a place to live Problems where you live: no known problems In the past 12 months, utilities in danger of being shut off: no In past 12 months, lack of transportation kept you from medical appts, meetings, work, or getting things needed for daily living: no In the past 12 mos, have been you worried that your food would run out before you had money to buy more?: never true In the past 12 mos, the food you bought just didn't last and you didn't have money to buy more?: never true Highest level of school completed/degree received: Bachelor's degree Smoking Status: Never smoker Do you use any of these nicotine containing products: None Second hand tobacco smoke exposure: Yes How often do you have a drink containing alcohol: monthly or less Alcohol type: wine How many standard drinks containing alcohol do you have on a typical day: 1 or 2 How often do you have six or more drinks on one occasion: Never AUDIT-C Alcohol total score: 1 Non-prescribed substance use: denies use Caffeine: Yes How often does anyone, including family, friends and others, physically hurt you: never How often does anyone, including family, friends and others, insult or talk down to you: never How often does anyone, including family, friends and others, threaten you with harm: never How often does anyone, including family, friends and others, scream or curse at you: never Are you using contraception or practicing any form of control: No service: No Meds Home Medications and Allergies Home Medications ?Medication ?Instructions ?Recorded ?Confirmed ?Type atorvastatin 20 mg tablet 20 mg PO HS 09/27/21 11/14/24 History cholecalciferol (vitamin D3) 25 1,000 unit PO DIRECTED 09/27/21 11/14/24 History mcg (1,000 unit) tablet magnesium 250 mg tablet 250 mg PO DAILY 09/27/21 11/14/24 History multivitamin (Multiple Vitamins 1 tab PO DAILY 09/27/21 11/14/24 History tablet) omega-3 1,050 [id number]-[id number]-dpa-fish 1 cap PO QDAY 09/27/21 11/14/24 History oil 1,200 mg capsule ([place]avan-3 (with docosapentaenoic acid)) trazodone 50 mg tablet 50 mg PO HS 09/27/21 11/14/24 History venlafaxine 37.5 mg 37.5 mg PO DAILY 09/27/21 11/14/24 History capsule,extended release 24 hr vitamin E mixed 400 unit capsule 400 unit PO DAILY 09/27/21 11/14/24 History aspirin 81 mg tablet,delayed 81 mg PO DAILY 09/29/21 11/14/24 History release Held on 11/14/24. Instructions: Resume on 12/15/24. glucosamine HCl 1,500 mg tablet 1,500 mg PO DAILY 09/29/21 11/14/24 History calcium carbonate 600 mg PO BID 09/22/22 11/14/24 History propranolol 20 mg tablet 20 mg PO BID 10/25/23 11/14/24 History pravagen PO .qd 09/16/24 11/11/24 History sleep aide PO 09/16/24 11/11/24 History anastrozole 1 mg tablet (Arimidex) 1 mg PO QDAY #90 tabs 11/11/24 11/14/24 Rx acetaminophen 500 mg capsule 500 - 1,000 mg (1 - 2 x 500 mg) PO 11/14/24 Rx Q6H PRN pain #100 caps aspirin 81 mg chewable tablet 81 mg PO BID for DVT prophylaxis 11/14/24 Rx (Aspirin Childrens) 30 days #60 tabs oxycodone 5 mg tablet 2.5 - 5 mg (0.5 - 1 x 5 mg) PO 11/14/24 Rx Q4-6H PRN Pain #42 tabs sennosides 8.6 mg tablet (Senna 17.2 mg (2 x 8.6 mg) PO BID PRN 11/14/24 Rx Lax) constipation #100 tabs Allergies Allergy/AdvReac Type Severity Reaction Status Date / Time No Known Drug Allergies Allergy Verified 11/14/24 08:16 Exam Narrative: Exam Narrative: Physical exam GENERAL: Comfortable, no acute distress. HEAD AND NECK: Atraumatic, normocephalic CARDIOVASCULAR: RRR. Normal S1, S2. No murmurs. RESPIRATORY: Clear to auscultation B/L. Good air entry B/L. No wheezes or rhonchi. NEUROLOGY: Alert, awake, oriented X 3. Normal speech. PSYCH: Normal mood, normal affect. Const: Vital Signs, click to edit/add: Vital Signs - 24 hr 11/14/24 08:40 11/14/24 09:40 11/14/24 12:14 Temperature 97.8 F 97.2 F L Pulse Rate 69 73 58 L Respiratory Rate 16 16 10 L Blood Pressure 133/63 145/62 H 101/58 L Pulse Oximetry 99 94 94 Oxygen Delivery Me thod Room Air Nasal Cannula Room Air Oxygen Flow Rate 2 11/14/24 12:20 11/14/24 12:25 11/14/24 12:30 Temperature 97.1 F L Pulse Rate 61 57 L 57 L Respiratory Rate 12 12 12 Blood Pressure 105/60 123/61 125/63 Pulse Oximetry 100 97 97 Oxygen Delivery Me thod OxyMask OxyMask OxyMask Oxygen Flow Rate 10 10 6 11/14/24 12:35 11/14/24 12:40 11/14/24 12:46 Temperature 97.3 F L Pulse Rate 71 59 L 61 Respiratory Rate 14 12 124 H Blood Pressure 127/73 117/69 117/69 Pulse Oximetry 97 95 96 Oxygen Delivery Me thod OxyMask OxyMask OxyMask Oxygen Flow Rate 6 10 10 Assessment and Plan Assessment and plan (1) Status post total knee replacement, left: Problem comment: -Start early ambulation with physical therapy. -Start DVT prophylaxis tonight w/ Aspirin 81 mg BID. -Monitor for urine output postoperatively, bladder scan if needed. -Encourage incentive spirometry. Status: Acute (2) Invasive lobular carcinoma of left breast in female: Problem comment: History of breast cancer maintained on anastrozole: Usual dose taken on the morning of surgery. Status: Acute (3) S/P mastectomy: Problem comment: left, November 2023 Status: Acute (4) Essential tremor: Problem comment: Tremor maintained on propranolol: Usual dose the morning of surgery. will resume the 2nd dose tonight Status: Acute (5) Pre-diabetes: Problem comment: Monitor blood sugar Status: Acute (6) Hyperlipidemia: Problem comment: on atorvastatin 20 mg daily Status: Acute (7) Anxiety: Problem comment: Anxiety and depression maintained on venlafaxine Status: Acute (8) Osteoarthritis of left knee: Status: Acute Total Time Spent Total Time Spent: Time spent: Today I spent 50 minutes seeing the patient, discussing the patient with ER staff, reviewing [facility]se and EPIC notes/diagnostics, discussing the care plan with our care time that includes social work, PT/OT, pharmacy, RT, chcf and documenting my impressions and plan in the medical record.
[2024-11-14] MEDS: CEFAZOLIN 1 GM in 0.9 % SODIUM CHLORIDE Mini-bag 100 ML IVPB (17:59)
--- NOTE | 2024-11-14 19:17 | PC.NURSE ---
Nursing Care Hours: [id number] Pt this shift calm and cooperative, alert and oriented. Pain controlled with PO meds per JUN. Bandage CDI. VSS. Post op recovery completed without issue.
[2024-11-14] MEDS: ATORVASTATIN CALCIUM 10 MG TABLET 20 MG PO (20:16)
[2024-11-14] MEDS: PROPRANOLOL 20 MG TABLET PO (20:16)
[2024-11-14] MEDS: ASPIRIN 81 MG TABLET EC PO (20:16)
[2024-11-14] MEDS: SENNOSIDES 1 TAB TABLET 2 TAB PO (20:16)
[2024-11-14] MEDS: TRAZODONE HCL 50 MG TABLET PO (20:17)
[2024-11-15 02:00] VITALS: BP 125/66; PULSE 70; RESP 16; TEMP 36.6; O2SAT 95
[2024-11-15] MEDS: CEFAZOLIN 1 GM in 0.9 % SODIUM CHLORIDE Mini-bag 100 ML IVPB (02:00)
[2024-11-15] MEDS: ACETAMINOPHEN 500 MG TABLET 1000 MG PO (05:42)
[2024-11-15 07:00] VITALS: O2SAT 94
[2024-11-15 07:12] LABS: INR 1.01 (0.91-1.10); Prothrombin Time 14.1 Seconds
[2024-11-15 07:30] VITALS: BP 111/57; PULSE 80; RESP 17; TEMP 36.7; O2SAT 94
[2024-11-15] MEDS: VENLAFAXINE HCL ER 37.5 MG CAPSULE PO (07:41)
[2024-11-15] MEDS: PROPRANOLOL 20 MG TABLET PO (07:42)
[2024-11-15] MEDS: CELECOXIB 200 MG CAPSULE PO (07:43)
[2024-11-15] MEDS: SENNOSIDES 1 TAB TABLET 2 TAB PO (07:43)
[2024-11-15] MEDS: ASPIRIN 81 MG TABLET EC PO (07:44)
--- NOTE | 2024-11-15 08:07 | PM.ORPN ---
Subjective Subjective Time Seen by Provider: 07:00 Date Seen: 11/15/24 Principal diagnosis: Status post left knee replacement Interval history: Nubia is comfortable. She will be discharging to home with her today. She states ambulating has gone well. Ortho Exam Narrative Exam Narrative: Alert and oriented x3. Patient is in no acute distress. Converses without labored breathing. Hearing is grossly intact. Ambulates with a walker. Examination of the left lower extremity shows the dressing is intact. There is no erythema or warmth or sign of infection. Minimal edema. Minimal hematoma. She is able to straight leg raise. CMS intact left lower extremity. Calves are soft and nontender. Const Vital Signs, click to edit/add: Vital Signs - 24 hr 11/14/24 08:40 11/14/24 09:40 11/14/24 12:14 Temperature 97.8 F 97.2 F L Pulse Rate 69 73 58 L Pulse Rate [Pulse Oximeter] Respiratory Rate 16 16 10 L Blood Pressure 133/63 145/62 H 101/58 L Blood Pressure [Right Arm] Pulse Oximetry 99 94 94 Oxygen Delivery Method Room Air Nasal Cannula Room Air Oxygen Flow Rate 2 11/14/24 12:20 11/14/24 12:25 11/14/24 12:30 Temperature 97.1 F L Pulse Rate 61 57 L 57 L Pulse Rate [Pulse Oximeter] Respiratory Rate 12 12 12 Blood Pressure 105/60 123/61 125/63 Blood Pressure [Right Arm] Pulse Oximetry 100 97 97 Oxygen Delivery Method OxyMask OxyMask OxyMask Oxygen Flow Rate 10 10 6 11/14/24 12:35 11/14/24 12:40 11/14/24 12:46 Temperature 97.3 F L Pulse Rate 71 59 L 61 Pulse Rate [Pulse Oximeter] Respiratory Rate 14 12 124 H Blood Pressure 127/73 117/69 117/69 Blood Pressure [Right Arm] Pulse Oximetry 97 95 96 Oxygen Delivery Method OxyMask OxyMask OxyMask Oxygen Flow Rate 6 10 10 11/14/24 12:55 11/14/24 12:56 11/14/24 13:00 Temperature 97.1 F L Pulse Rate Pulse Rate [Pulse Oximeter] 54 L 70 65 Respiratory Rate 16 Blood Pressure Blood Pressure [Right Arm] 88/64 L 125/73 126/76 Pulse Oximetry 97 Oxygen Delivery Method Room Air Oxygen Flow Rate 11/14/24 13:15 11/14/24 13:30 11/14/24 13:45 Temperature 97.5 F L Pulse Rate Pulse Rate [Pulse Oximeter] 64 66 63 Respiratory Rate 16 Blood Pressure Blood Pressure [Right Arm] 122/66 91/70 103/57 L Pulse Oximetry 95 96 98 Oxygen Delivery Method Room Air Room Air Room Air Oxygen Flow Rate 11/14/24 14:15 11/14/24 14:45 11/14/24 15:00 Temperature Pulse Rate Pulse Rate [Pulse Oximeter] 75 70 Respiratory Rate 16 Blood Pressure Blood Pressure [Right Arm] 104/51 L 110/61 Pulse Oximetry 96 97 96 Oxygen Delivery Method Room Air Room Air Room Air Oxygen Flow Rate 11/14/24 15:00 11/14/24 15:48 11/14/24 18:00 Temperature Pulse Rate Pulse Rate [Pulse Oximeter] 90 89 Respiratory Rate 16 Blood Pressure Blood Pressure [Right Arm] 101/49 L 117/65 Pulse Oximetry 95 Oxygen Delivery Method Room Air Oxygen Flow Rate 11/14/24 18:37 11/14/24 22:37 11/14/24 23:00 Temperature 97.9 F Pulse Rate Pulse Rate [Pulse Oximeter] 92 90 80 Respiratory Rate 16 16 Blood Pressure Blood Pressure [Right Arm] 105/57 L 112/63 Pulse Oximetry 97 97 Oxygen Delivery Method Room Air Room Air Oxygen Flow Rate 11/14/24 23:00 11/15/24 02:00 Temperature 98 F Pulse Rate Pulse Rate [Pulse Oximeter] 70 Respiratory Rate 16 16 Blood Pressure Blood Pressure [Right Arm] 125/66 Pulse Oximetry 97 95 Oxygen Delivery Method Room Air Room Air Oxygen Flow Rate 10 Assessment and Plan Assessment and plan (1) Status post total knee replacement, left: Problem details: -Start early ambulation with physical therapy. -Start DVT prophylaxis tonight w/ Aspirin 81 mg BID. -Monitor for urine output postoperatively, bladder scan if needed. -Encourage incentive spirometry. Status: Acute Assessment and Plan: Plan for discharge is today to home if they meet discharge criteria. DVT prophylaxis includes aspirin 81 mg twice daily x1 month, Compression stockings as needed for swelling. Frequent ambulation, every hour throughout the day. Remove dressing in 1 week. Observe wound and phone Orthopedics with any questions or concerns Return to clinic in 1 week for a wound check Return to clinic in 6 weeks with surgeon Minimize narcotic use. Wean off and discontinue soon as possible. Activities as tolerated. No strenuous activity. Outpatient physical therapy as scheduled. Ice and elevate the operative extremity. No restriction on ice.
--- NOTE | 2024-11-15 11:38 | PC.SOCIAL ---
Discharge planning: mend worker completed the following Initial Psychosocial Assessment with the pt and her spouse today before discharge: Initial Psychosocial Assessment: 1.? Assessment completed with: Patient, Spouse, Child, Friend, Other: Patient and spouse. 2.? Pt lives at address and phone number on face sheet? Own home; facility , Other: Own home and the address on her face sheet is correct. Pt and her go to [place] during the winter months. 3.?Insurance information? on face sheet is correct? Yes. 4.?Contacts? on face sheet are correct? Yes. 5.? Does pt have a Healthcare Directive, POLST or Guardian? Healthcare Directive. 6.? Who is the pt?s main source/sources of emotional/physical support? [facility]. 7.? Prior to admission did pt need assistance? Yes/No No. 8.? Who provided and what was the assistance needed? N/A. 9.? Was Home Health being provided, by what agency? No. 10. Does pt use/have medical equipment at home already? What? Two wheeled walker and bedside commode for after surgery. 11. Will there be a need for additional assistance at discharge and is this available in previous setting? No needs. 12. If pt needs to go to a higher level of care, are they open to this and do they have facilities they are interested in? No needs. 13. How would pt plan to transport at discharge? [facility]. 14. Is there anyone pt would like social work supervisor to contact to discuss discharge plans? No. Social work to follow-up as needed.
== END 2024-11-15 10:55 | disposition home or self-care (01) ==
LOC: OR 07:55 → MEDSURG 07:56
PROVIDERS: PCP Family Medicine; Visit Provider Orthopaedic Surgery
PROC: (CPT 27447; principal; 2024-11-14 09:45)
DX: M17.12 Unilateral primary osteoarthritis, left knee (principal); G89.18 Other acute postprocedural pain; R73.03 Prediabetes; R25.1 Tremor, unspecified; F41.9 Anxiety disorder, unspecified; F32.A Depression, unspecified; E78.5 Hyperlipidemia, unspecified; Z85.3 Personal history of malignant neoplasm of breast; Z79.82 Long term (current) use of aspirin
CPT/HCPCS: 27447; 01402; 36415; 64447; 64454; 73560; 76942; 85610; 97116; 97161; 97165; 97530; 97535; 99100; A9270; C1776; J0665; J0690; J1100; J2250; J2371; J2405; J2704; J3010; J7120